=== PATIENT | male | born 1960 | race Caucasian/White ===

== ENCOUNTER → 2017-01-18 | Outpatient (CLI) | payer MEDICARE, OTHER ==
--- NOTE | 2017-01-18 22:26 | MR ---
EXAMINATION TYPE: MR cervical spine wo con DATE OF EXAM: 01/18/2017 COMPARISON: NONE HISTORY: 56-year-old male with neck pain and arm pain for 20 years, cervical radiculopathy TECHNIQUE: Multiplanar, multisequence images of the cervical spine were acquired. FINDINGS: No craniocervical junction abnormality, predental space widening, or prevertebral soft tissue swellin g. Degenerative changes at the C1 density dilatation. The intervertebral discs are degenerated, desiccated, and narrowed with the greatest narrowing at C5 C7 levels. Disc osteophyte complexes are present at multiple levels with ligamentum flavum thickening . Mild facet and uncovertebral joint arthropathy mid to lower cervical spine. Alignment is maintained. There is some edematous Modic type I endplate change at C5-C6. The axial series is limited by motion artifacts. At C2-C3, facet degenerative change without significant canal or foraminal stenosis. At C3-C4, there is broad-based disc bulge with facet arthropathy. Changes result in moderate right ne uroforaminal stenosis without spinal canal stenosis. At C4-C5, there is broad-based disc osteophyte complex without contiguous uncovertebral joint arthrop athy. Additional facet degenerative change. Changes result in moderate to severe right and moderate l eft neuroforaminal stenosis with mild narrowing of the spinal canal. At C5-C6, there is disc osteophyte complex with uncovertebral joint and facet degenerative change. Ch anges resulting in moderate to severe right and moderate left neuroforaminal stenosis with mild overa ll spinal canal stenosis. There is abutment of the ventral cord without cord flattening. At 6-C7, there is disc osteophyte complex with uncovertebral joint and facet arthropathy. Changes res ult in severe right greater than left neuroforaminal stenosis and mild spinal canal stenosis. There i s abutment of the ventral cord without cord flattening. At C7-T1, broad-based disc osteophyte complex with facet degenerative change. No significant canal or foraminal stenosis. Normal T2-weighted cervical cord signal. IMPRESSION: 1. Moderate multilevel degenerative disc disease with disc osteophyte complexes and corresponding fac et and uncovertebral joint arthropathy. There is some edematous Modic type I endplate change at C5-C6 . 2. Changes result in mild spinal canal stenoses from C4 down through C7 levels. There is abutment of the ventral cord at some levels without cord compression or argelia canal compromise. 3. Variable moderate to severe neuroforaminal stenoses as outlined above. Some of the neuroforaminal narrowing may be overestimated due to prominent motion artifacts on the axial series.
== END | disposition home or self-care (01) ==
LOC: RADMRIMAIN 18:11
PROVIDERS: ATTEND Family Medicine
DX: M48.02 Spinal stenosis, cervical region (principal); M99.71 Connective tissue and disc stenosis of intervertebral foramina of cervical region; M50.10 Cervical disc disorder with radiculopathy, unspecified cervical region
CPT/HCPCS: 72141

== ENCOUNTER 2023-02-07 11:21 | Inpatient (IN) | payer MEDICARE ==
--- NOTE | 2023-02-07 11:33 | ED ---
General Adult HPI - General Source: patient, family, RN notes reviewed Mode of arrival: ambulatory Limitations: no limitations <Patricio Grant - Last Filed: 02/07/23 11:31> <Jonny Cuenca - Last Filed: 02/07/23 14:14> - General Stated complaint: left [facility] system stated in middle heart attack Time Seen by Provider: 02/07/23 11:31 - History of Present Illness Initial comments: 62-year-old male presents emergency Department chief complaint of chest pain. Patient states he was admitted on Tuesday at [facility]. Patient states she was told he had a heart attack in which upon on blood work. Patient states that he signed himself out. Patient's having worsening chest pain. 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 Patient noted to have elevated blood pressure, patient has a history of smoking. (Patricio Grant) This is a 62-year-old male who presents emergency Department stating he's been having intermittent chest pains and shortness of breath over the month. Patient states on Tuesday got significantly worse. Patient states he went to [facility] where they told him his troponin was elevated and that he had a heart attack but on Tuesday morning patient signed out AMA. Patient states the pain is continued since then and he is still short of breath per patient decided to come back to the hospital because he thinks he needs to be treated. Patient is a smoker and has a strong family history of heart disease. Patient states that he doesn't know if he has high blood pressure high cholesterol she just started to see a doctor. (Jonny Cuenca) - Related Data Home Medications Medication Instructions Recorded Confirmed Enalapril [Vasotec] 20 mg PO BID 02/20/14 12/24/14 Previous Rx's Medication Instructions Recorded Sulfamethox-Tmp 800-160Mg [Bactrim 2 each PO Q12HR #28 tab 12/24/14 Ds] Allergies Allergy/AdvReac Type Severity Reaction Status Date / Time No Known Allergies Allergy Verified 02/07/23 11:48 Review of Systems ROS Other: All systems not noted in ROS Statement are negative. <Patircio Grant - Last Filed: 02/07/23 11:31> ROS Other: All systems not noted in ROS Statement are negative. <Jonny Cuenca - Last Filed: 02/07/23 14:14> ROS Statement: Those systems with pertinent positive or pertinent negative responses have been documented in the HPI. Past Medical History Past Medical History: Chest Pain / Angina, GERD/Reflux, Hypertension, Musculoskeletal Disorder Additional Past Medical History / Comment(s): HERNIATED DISCS, PTS STATES FOR THE LAST YEAR PT HAS BEEN VOMITING BLOOD, NOSEBLEEDS, BLOOD IN STOOL AND URINE AND SEVERE HEADACHES. STATES 40 # WT LOSS IN THE LAST YEAR. C/O ITCHING ON HANDS AND FEET. WAS TOLD IN THE PAST THAT HIS STOMACH LINING WAS "ROTTED" History of Any Multi-Drug Resistant Organisms: None Reported Past Surgical History: Orthopedic Surgery, Tonsillectomy Additional Past Surgical History / Comment(s): TONSILLS A CHILD, BILATERAL KNEE ARTHROSCOPY, PLATE LEFT FOOT. Past Anesthesia/Blood Transfusion Reactions: No Reported Reaction Past Psychological History: ADD/ADHD, Anxiety Past Alcohol Use History: None Reported Past Drug Use History: None Reported - Past Family History Mother Family Medical History: Cancer, Diabetes Mellitus Additional Family Medical History / Comment(s): PANCREATIC CA, HX OF HEART PROBLEMS- TRIPLE BYPASS SURGERY, STENTS Father Family Medical History: Cancer, Diabetes Mellitus Additional Family Medical History / Comment(s): LUNG CA, HX OF HEART PROBLEMS <Patricio Grant - Last Filed: 02/07/23 11:31> General Exam <Patricio Grant - Last Filed: 02/07/23 11:31> <Jonny Cuenca - Last Filed: 02/07/23 14:14> - General Exam Comments Initial Comments: Visual Physical Exam Vital signs reviewed General: Well-appearing, nontoxic, no acute distress. Head: Normocephalic, atraumatic Eyes: PERRLA, EOMI ENT: Airway patent Chest: Nonlabored breathing Skin: No visual rash, normal skin tone Neuro: Alert and oriented 3 Musculoskeletal: No gross abnormalities (Patricio Grant) GENERAL: Patient is well-developed and well-nourished. Patient is nontoxic and well- hydrated and is in mild distress. ENT: Neck is soft and supple. No significant lymphadenopathy is noted. Oropharynx is clear. Moist mucous membranes. Neck has full range of motion without eliciting any pain. EYES: The sclera were anicteric and conjunctiva were pink and moist. Extraocular movements were intact and pupils were equal round and reactive to light. Eyelids were unremarkable. PULMONARY: Unlabored respirations. Good breath sounds bilaterally. No audible rales rhonchi or wheezing was noted. CARDIOVASCULAR: There is a regular rate and rhythm without any murmurs gallops or rubs. ABDOMEN: Soft and nontender with normal bowel sounds. No palpable organomegaly was noted. There is no palpable pulsatile mass. SKIN: Skin is clear with no lesions or rashes and otherwise unremarkable. NEUROLOGIC: Patient is alert and oriented x3. Cranial nerves II through XII are grossly intact. Motor and sensory are also intact. Normal speech, volume and content. Symmetrical smile. MUSCULOSKELETAL: Normal extremities with adequate strength and full range of motion. LYMPHATICS: No significant lymphadenopathy is noted PSYCHIATRIC: Normal psychiatric evaluation. (Jonny Cuenca) Course Vital Signs 02/07/23 11:48 Temperature 98.8 F Pulse Rate 88 Respiratory 16 Rate Blood Pressure 191/102 O2 Sat by Pulse 98 Oximetry Medical Decision Making <Patricio Grant - Last Filed: 02/07/23 11:31> - Lab Data Result diagrams: 02/07/23 12:08 02/07/23 12:08 <Jonny Cuenca - Last Filed: 02/07/23 14:14> - Medical Decision Making I completed the quick note portion of this chart signed Patricio Grant PA-C (Patricio Grant) EKG is interpreted by myself shows a sinus rhythm at 74 bpm [place] interval 135 QRSs 88 QT interval 362 QTC is 389. Patient's EKG shows no ST segment elevation or depression. I'm indicating that this isn't an STEMI because that's what they call that at [facility] on Tuesday and he left AMA from [facility] and he still having chest pain his troponin is mildly elevated I started the patient on heparin I gave him aspirin and Nitropaste. Was pt. sent in by a medical professional or institution (MARTHA Luque, FOOD AND BEVERAGE OPERATIONS MANAGER, urgent care, hospital, or group home...) When possible be specific @ -Patient was sent in by the primary medical care doctor Did you speak to anyone other than the patient for history (EMS, parent, family, police, friend...)? What history was obtained from this source @ -His gave quite a bit of history Did you review nursing and triage notes (agree or disagree)? Why? @ -I reviewed and agree with nursing and triage notes Were old charts reviewed (outside hosp., previous admission, EMS record, old EKG, old radiological studies, urgent care reports/EKG's, group home records)? Report findings @ -I reviewed charts from [facility] Differential Diagnosis (chest pain, altered mental status, abdominal pain women, abdominal pain men, vaginal bleeding, weakness, fever, dyspnea, syncope, headache, dizziness, GI bleed, back pain, seizure, CVA, palpatations, mental health, musculoskeletal)? @ -Differential Chest Pain: Stable Angina, Unstable Angina, STEMI, NSTEMI Aortic Dissection, Pneumothorax, Musculoskeletal, Esophageal Spasm GERD, Cholecystitis, Pancreatitis, Zoster, this is not meant to be an all-inclusive list. EKG interpreted by me (3pts min.). @ -As above X-rays interpreted by me (1pt min.). @ -Chest x-ray shows no acute abnormality CT interpreted by me (1pt min.). @ -None done U/S interpreted by me (1pt. min.). @ -None done What testing was considered but not performed or refused? (CT, X-rays, U/S, labs)? Why? @ -None What meds were considered but not given or refused? Why? @ -None Did you discuss the management of the patient with other professionals (professionals i.e. , PA, FOOD AND BEVERAGE OPERATIONS MANAGER, lab, RT, psych nurse, social media specialist, railroad watchman, teacher, psychological operations officer, trust manager assistant)? Give summary @ -I spoke with Dr. Morrison he agreed to admit the patient Was smoking cessation discussed for >3mins.? @ -No Was critical care preformed (if so, how long)? @ -35 minutes Were there social determinants of health that impacted care today? How? (Homelessness, low income, unemployed, alcoholism, drug addiction, transportation, low edu. Level, literacy, decrease access to med. care, group home, rehab)? @ -No Was there de-escalation of care discussed even if they declined (Discuss DNR or withdrawal of care, Hospice)? DNR status @ -No What co-morbidities impacted this encounter? (DM, HTN, Smoking, COPD, CAD, Cancer, CVA, ARF, Chemo, Hep., AIDS, mental health diagnosis, sleep apnea, morbid obesity)? @ -None Was patient admitted / discharged? Hospital course, mention meds given and route, prescriptions, significant lab abnormalities, going to OR and other pertinent info. @ -I discussed lab results and the elevated troponin with the patient and Dr. Morrison. I admitted the patient remaining orders I started the patient heparin the patient received aspirin and Nitropaste in the emergency department. I continue those on the floor. I consulted cardiology and wrote admitting orders. Undiagnosed new problem with uncertain prognosis? @ -No Drug Therapy requiring intensive monitoring for toxicity (Heparin, Nitro, Insulin, Cardizem)? @ -No Were any procedures done? @ -No Diagnosis/symptom? @ -Non-STEMI Acute, or Chronic, or Acute on Chronic? @ -Acute Uncomplicated (without systemic symptoms) or Complicated (systemic symptoms)? @ -Complicated Side effects of treatment? @ -No Exacerbation, Progression, or Severe Exacerbation? @ -No Poses a threat to life or bodily function? How? (Chest pain, [place], AL, pneumonia, PE, COPD, DKA, ARF, appy, cholecystitis, CVA, Diverticulitis, Homicidal, Suicidal, threat to staff... and all critical care pts) @ -Yes this could lead to or perfusion and end organ dysfunction (Jonny Cuenca) - Lab Data Lab Results 02/07/23 02/07/23 02/07/23 Range/Units 12:08 12:08 12:08 WBC 8.6 (3.8-10.6) k/uL RBC 4.64 (4.30-5.90) m/uL Hgb 13.9 (13.0-17.5) gm/dL Hct 42.5 (39.0-53.0) % MCV 91.7 (80.0-100.0) fL MCH 29.9 (25.0-35.0) pg MCHC 32.7 (31.0-37.0) g/dL RDW 13.2 (11.5-15.5) % Plt Count 123 L (150-450) k/uL MPV 7.7 Neutrophils % 56 % Lymphocytes % 31 % Monocytes % 7 % Eosinophils % 3 % Basophils % 0 % Neutrophils # 4.9 (1.3-7.7) k/uL Lymphocytes # 2.7 (1.0-4.8) k/uL Monocytes # 0.6 (0-1.0) k/uL Eosinophils # 0.2 (0-0.7) k/uL Basophils # 0.0 (0-0.2) k/uL PT 10.2 (10.0-12.5) sec INR 0.9 (<1.2) APTT 23.1 (22.0-30.0) sec Sodium 138 (137-145) mmol/L Potassium 4.0 (3.5-5.1) mmol/L Chloride 103 (98-107) mmol/L Carbon Dioxide 27 (22-30) mmol/L Anion Gap 8 mmol/L BUN 17 (9-20) mg/dL Creatinine 0.89 (0.66-1.25) mg/dL Est GFR (CKD-EPI)AfAm >90 (>60 ml/min/1.73 sqM) Est GFR (CKD-EPI)NonAf >90 (>60 ml/min/1.73 sqM) Glucose 117 H (74-99) mg/dL Calcium 8.8 (8.4-10.2) mg/dL Magnesium 2.0 (1.6-2.3) mg/dL Total Bilirubin 0.4 (0.2-1.3) mg/dL AST 31 (17-59) U/L ALT 24 (4-49) U/L Alkaline Phosphatase 100 (38-126) U/L Troponin I (0.000-0.034) ng/mL NT-Pro-B Natriuret Pep 544 pg/mL Total Protein 6.1 L (6.3-8.2) g/dL Albumin 3.6 (3.5-5.0) g/dL 02/07/23 Range/Units 12:08 WBC (3.8-10.6) k/uL RBC (4.30-5.90) m/uL Hgb (13.0-17.5) gm/dL Hct (39.0-53.0) % MCV (80.0-100.0) fL MCH (25.0-35.0) pg MCHC (31.0-37.0) g/dL RDW (11.5-15.5) % Plt Count (150-450) k/uL MPV Neutrophils % % Lymphocytes % % Monocytes % % Eosinophils % % Basophils % % Neutrophils # (1.3-7.7) k/uL Lymphocytes # (1.0-4.8) k/uL Monocytes # (0-1.0) k/uL Eosinophils # (0-0.7) k/uL Basophils # (0-0.2) k/uL PT (10.0-12.5) sec INR (<1.2) APTT (22.0-30.0) sec Sodium (137-145) mmol/L Potassium (3.5-5.1) mmol/L Chloride (98-107) mmol/L Carbon Dioxide (22-30) mmol/L Anion Gap mmol/L BUN (9-20) mg/dL Creatinine (0.66-1.25) mg/dL Est GFR (CKD-EPI)AfAm (>60 ml/min/1.73 sqM) Est GFR (CKD-EPI)NonAf (>60 ml/min/1.73 sqM) Glucose (74-99) mg/dL Calcium (8.4-10.2) mg/dL Magnesium (1.6-2.3) mg/dL Total Bilirubin (0.2-1.3) mg/dL AST (17-59) U/L ALT (4-49) U/L Alkaline Phosphatase (38-126) U/L Troponin I 0.082 H* (0.000-0.034) ng/mL NT-Pro-B Natriuret Pep pg/mL Total Protein (6.3-8.2) g/dL Albumin (3.5-5.0) g/dL Critical Care Time Critical Care Time: Yes Total Critical Care Time: 35 <Jonny Cuenca - Last Filed: 02/07/23 14:14> Disposition <Patricio Grant - Last Filed: 02/07/23 11:31> Time of Disposition: 14:13 <Jonny Cuenca - Last Filed: 02/07/23 14:14> Clinical Impression: Acute non-ST elevation myocardial infarction (NSTEMI) Disposition: ADMITTED IP TO THIS HOSP Referrals: Rickey Morrison MD [Primary Care Provider] - 1-2 days
[2023-02-07 12:17] LABS: Basophils % (A) 0 %; Eosinophils # (A) 0.2 k/uL (0-0.7); Eosinophils % (A) 3 %; HCT 42.5 % (39.0-53.0); HGB 13.9 gm/dL (13.0-17.5); Lymphocytes # (A) 2.7 k/uL (1.0-4.8); Lymphocytes % (A) 31 %; MCH 29.9 pg (25.0-35.0); MCHC 32.7 g/dL (31.0-37.0); MCV 91.7 fL (80.0-100.0); Mean Platelet Volume 7.7; Monocytes # (A) 0.6 k/uL (0-1.0); Monocytes % (A) 7 %; Neutrophils # (A) 4.9 k/uL (1.3-7.7); Neutrophils % (A) 56 %; Platelet Count 123 k/uL (150-450); RBC 4.64 m/uL (4.30-5.90); RDW 13.2 % (11.5-15.5); WBC 8.6 k/uL (3.8-10.6)
[2023-02-07 12:30] LABS: INR 0.9 (<1.2); Partial Thromboplastin Time 23.1 sec (22.0-30.0); Prothrombin Time 10.2 sec (10.0-12.5)
[2023-02-07 12:37] LABS: NT-Pro-B-Type Natriuretic Pept 544 pg/mL
[2023-02-07 12:46] LABS: ALT 24 U/L (4-49); AST 31 U/L (17-59); African American GFR (CKD) >90 (>60 ml/min/1.73 sqM); Albumin 3.6 g/dL (3.5-5.0); Alkaline Phosphatase 100 U/L (38-126); Anion Gap 8 mmol/L; Blood Urea Nitrogen 17 mg/dL (9-20); Calcium 8.8 mg/dL (8.4-10.2); Carbon Dioxide 27 mmol/L (22-30); Chloride 103 mmol/L (98-107); Glucose 117 mg/dL (74-99); Non-African American GFR(CKD) >90 (>60 ml/min/1.73 sqM); Sodium 138 mmol/L (137-145); Total Bilirubin 0.4 mg/dL (0.2-1.3); Total Protein 6.1 g/dL (6.3-8.2)
--- NOTE | 2023-02-07 13:12 | XR ---
EXAMINATION TYPE: XR chest 2V DATE OF EXAM: 02/07/2023 12:51 PM CLINICAL INDICATION:Male, 62 years old with history of Chest Pain; COMPARISON: Chest radiographs from02/20/2014 TECHNIQUE: XR chest 2V Frontal and lateral views of the chest. FINDINGS: Lungs/Pleura: There is no evidence of pleural effusion, focal consolidation, or pneumothorax. Pulmonary vascularity: Unremarkable. Heart/mediastinum: Cardiomediastinal silhouette is unremarkable. Musculoskeletal: No acute osseous pathology. IMPRESSION: 1. No acute cardiopulmonary disease process. 2. COPD changes.
[2023-02-07] MEDS ORDERED: NICOTINE 21MG/24HR PATCH TRANSDERM STA (13:58)
[2023-02-07] MEDS ORDERED: ASPIRIN 81 MG PO STA (14:02)
[2023-02-07] MEDS ORDERED: NITROGLYCERIN OINT 1 INCH/GM PACKET TOPICAL STA (14:02)
[2023-02-07] MEDS ORDERED: HEPARIN SODIUM 1,000 UN/ML (10ML VL) IV ONE (14:03)
[2023-02-07] MEDS ORDERED: NITROGLYCERIN SL TABS 0.4 MG TAB SUBLINGUAL PRN (14:14)
[2023-02-07] MEDS ORDERED: HEPARIN SOD,PORK IN 0.45% NACL 25,000 UNIT in 0.45% NACL 1 250ML.BAG IV SCH (14:15)
[2023-02-07] MEDS ORDERED: LABETALOL 5 MG/ML VIAL MDV IVP STA (14:34)
[2023-02-07] MEDS ORDERED: HYDROmorphone 0.5 MG/0.5 ML SYRINGE IVP STA (16:02)
[2023-02-07] MEDS: NITROGLYCERIN OINT 1 INCH/GM PACKET TOPICAL SCH (20:34)
[2023-02-07] MEDS: KETOROLAC 15 MG/ML 1 ML VIAL IVP PRN (20:40)
[2023-02-07] MEDS: IPRATROPIUM-ALBUTEROL 3 ML NEB INHALATION SCH (21:01)
--- NOTE | 2023-02-07 21:23 | CT ---
EXAMINATION TYPE: CT chest wo con CT DLP: 327 mGycm, Automated exposure control for dose reduction was used. DATE OF EXAM: 02/07/2023 9:09 PM COMPARISON: 02/20/2014 CLINICAL INDICATION:Male, 62 years old with history of pain; PHH, chest pain TECHNIQUE: Multiple axial images were obtained through the chest. Sagittal and coronal reformats were created for review. Contrast used: mL of (None if empty) Oral contrast used: (None if empty) FINDINGS: LUNGS/ PLEURA: Paraseptal and centrilobular emphysema changes throughout the lungs. AIRWAY: Patent and unremarkable. HEART: Moderate to severe atherosclerosis of the coronary arteries. Aortic valve leaflet calcificatio ns are severe. MEDIASTINUM: No gross evidence of adenopathy. VASCULATURE: No aortic aneurysm. This course of the arterial vasculature. MUSCULOSKELETAL: Moderate disc degeneration changes are present throughout the thoracolumbar spine. SOFT TISSUES/LYMPH NODES: Unremarkable. LOWER NECK: No significant findings. UPPER ABDOMEN: No significant findings. IMPRESSION: 1. Moderate emphysema changes. 2. Severe aortic valve leaflet calcifications. 3. Moderate to severe coronary artery atherosclerosis.
--- NOTE | 2023-02-07 21:42 | US ---
EXAMINATION TYPE: US venous doppler duplex LE LT DATE OF EXAM: 02/07/2023 9:35 PM COMPARISON: NONE CLINICAL INDICATION: Male, 62 years old with history of left leg pain; Upper thigh pain x 2 weeks. No hx of DVT. Not on blood thinners SIDE PERFORMED: Left TECHNIQUE: The lower extremity deep venous system is examined utilizing real time linear array sonog faiza with graded compression, doppler sonography and color-flow sonography. VESSELS IMAGED: Common Femoral Vein Deep Femoral Vein Greater Saphenous Vein * Femoral Vein Popliteal Vein Small Saphenous Vein * Proximal Calf Veins (* superficial vessels) Left Leg: No evidence for DVT IMPRESSION: Grayscale, color doppler, spectral doppler imaging performed of the deep veins of the lo wer extremities. There is normal flow, compressibility, vascular waveforms.
[2023-02-07] MEDS ORDERED: CYCLOBENZAPRINE 10 MG TAB PO PRN (22:28)
[2023-02-07] MEDS: NICOTINE 14MG/24HR PATCH TRANSDERM SCH (22:34)
[2023-02-08] MEDS: IPRATROPIUM-ALBUTEROL 3 ML NEB INHALATION SCH ×3 (00:04→09:29)
[2023-02-08] MEDS: NITROGLYCERIN OINT 1 INCH/GM PACKET TOPICAL SCH ×2 (01:07→09:18)
[2023-02-08] MEDS: KETOROLAC 15 MG/ML 1 ML VIAL IVP PRN ×2 (04:25→10:21)
[2023-02-08 08:42] LABS: Chol/HDL Ratio 2.94 Ratio; LDL Cholesterol,Calculated 72.8 mg/dL (0.0-131.0)
[2023-02-08] MEDS ORDERED: ASPIRIN 325 MG TAB PO SCH (09:00)
[2023-02-08 10:03] VITALS: BP 166/81; PULSE 71; RESP 12; TEMP 97.4
[2023-02-08] MEDS: NICOTINE 14MG/24HR PATCH TRANSDERM SCH (10:31)
--- NOTE | 2023-02-08 11:39 | P.CRDCN ---
History of Present Illness Consult date: 02/08/23 History of present illness: HISTORY OF PRESENTING ILLNESS Patient is a 62-year-old male with past medical history of smoking who smokes 1 pack per day. He also has history of hypertension and COPD. Patient initially presented to [facility] over the weekend for substernal chest heaviness which has been going on for last 2-3 weeks. The symptoms are more pronounced lately because of significant emotional stress due to household dispute he is dealing with. He left [facility] AMA. This time he presented to the entire hospital because of substernal chest heaviness. His ECG shows sinus rhythm with concerns of LVH. He had mildly elevated d- dimer. This was followed up by CTA PE protocol which showed moderate coronary calcification, moderate aortic valve calcification, emphysematous chronic lung changes. It did not show any evidence of pulmonary embolism On admission his has a troponin with a flat pattern of 0.08. He has normal kidney function and normal hemoglobin levels. REVIEW OF SYSTEMS 14 point review of system is negative except what is mentioned above in HPI. PHYSICAL EXAMINATION Vital signs reviewed. Head: Normocephalic. Eyes: Sclerae nonicteric. Neck: Brisk carotid upstroke, no jugular venous distention. Lungs: Clear to auscultation. Heart: Regular rate and rhythm, S1-S2, no S3, no murmur or rub. Abdomen: Soft nontender, positive bowel sounds no organomegaly. Extremities: No edema, intact distal pulses. Neuro: Alert, oritented, no focal deficits ASSESSMENT Unstable angina with substernal chest heaviness Cardiac risk factors include hypertension, poor diet, dyslipidemia and smoking Moderate coronary artery calcification Chronic emphysema PLAN Plan for cardiac catheterization for tomorrow. I explained the risk factors and the procedure steps the patient. Patient would like to proceed but he is saying that he wants to leave AMA to take care of his household dispute with his . I have advised him strongly that he should not leave the hospital and get cardiac catheterization done as he is at increased risk of . Patient understands and still wants to leave [facility]. He has promised me that he would follow-up in next 1-2 days in the clinic on an outpatient heart catheterization. I do not agree with this plan and would like him to stay inpatient for inpatient heart catheterization. Start aspirin, atorvastatin, metoprolol Continue IV heparin drip Obtain echocardiogram Plan for cardiac catheterization Past Medical History Past Medical History: Chest Pain / Angina, GERD/Reflux, Hypertension, Musculoskeletal Disorder Additional Past Medical History / Comment(s): HERNIATED DISCS, NOSEBLEEDS, BLOOD IN STOOL AND URINE AND SEVERE HEADACHES, C/O ITCHING ON HANDS AND FEET. WAS TOLD IN THE PAST THAT HIS STOMACH LINING WAS "ROTTED" History of Any Multi-Drug Resistant Organisms: None Reported Past Surgical History: Orthopedic Surgery, Tonsillectomy Additional Past Surgical History / Comment(s): TONSILLS A CHILD, BILATERAL KNEE ARTHROSCOPY, PLATE LEFT FOOT Past Anesthesia/Blood Transfusion Reactions: No Reported Reaction Past Psychological History: ADD/ADHD, Anxiety Smoking Status: Current every day smoker Past Alcohol Use History: None Reported Past Drug Use History: None Reported - Past Family History Mother Family Medical History: Cancer, Diabetes Mellitus Additional Family Medical History / Comment(s): PANCREATIC CA, HX OF HEART PROBLEMS- TRIPLE BYPASS SURGERY, STENTS Father Family Medical History: Cancer, Diabetes Mellitus Additional Family Medical History / Comment(s): LUNG CA, HX OF HEART PROBLEMS Medications and Allergies Home Medications Medication Instructions Recorded Confirmed Type Aspirin EC [Ecotrin Low Dose] 81 mg PO DAILY #30 tab 02/08/23 Rx Atorvastatin [Lipitor] 80 mg PO DAILY #30 tab 02/08/23 Rx Metoprolol Succinate (ER) [Toprol 25 mg PO DAILY #30 tab 02/08/23 Rx XL] Allergies Allergy/AdvReac Type Severity Reaction Status Date / Time morphine Allergy Rash/Itchin Verified 02/07/23 14:40 g/Vomiting Physical Exam Vitals: Vital Signs Temp Pulse Pulse Resp BP BP Pulse Ox 02/08/23 09:49 97.4 F L 71 12 166/81 97 02/08/23 08:00 64 16 02/08/23 04:00 64 16 151/64 94 L 02/08/23 00:00 60 16 153/69 93 L 02/07/23 23:55 96 02/07/23 20:00 97.6 F 80 18 150/78 96 02/07/23 17:46 68 18 160/89 96 02/07/23 15:25 72 14 142/77 95 02/07/23 11:48 98.8 F 88 16 191/102 98 FiO2 02/08/23 09:49 02/08/23 08:00 02/08/23 04:00 02/08/23 00:00 02/07/23 23:55 21 02/07/23 20:00 02/07/23 17:46 02/07/23 15:25 02/07/23 11:48 Intake and Output 02/07/23 02/08/23 02/08/23 22:59 06:59 14:59 Intake Total 319.817 81.101 Balance 319.817 81.101 Intake: IV 10 Invasive Line 1 10 Intake, IV Titration 69.817 81.101 Amount Heparin Sod,Pork in 0.45% 69.817 81.101 NaCl 25,000 unit In 0.45 % NaCl 1 250ml.bag @ 12 UNITS/KG/HR 8.709 mls/hr IV .Q24H [facility] Rx#: [id number] Oral 240 Other: Voiding Method Toilet Toilet Toilet # Voids 1 Weight 72.575 kg Results 02/07/23 12:08 02/07/23 12:08 Cardiac Enzymes 02/07/23 02/07/23 02/07/23 Range/Units 12:08 12:08 14:37 AST 31 (17-59) U/L Troponin I 0.082 H* 0.092 H* (0.000-0.034) ng/mL 02/07/23 Range/Units 17:17 AST (17-59) U/L Troponin I 0.086 H* (0.000-0.034) ng/mL Coagulation 02/07/23 02/07/23 02/08/23 Range/Units 12:08 19:45 04:16 PT 10.2 (10.0-12.5) sec APTT 23.1 30.0 34.8 H (22.0-30.0) sec Lipids 02/08/23 Range/Units 04:16 Triglycerides 210.00 H (0.00-149.00) mg/dL Cholesterol 174.00 (0.00-200.00) mg/dL HDL Cholesterol 59.20 (40.00-60.00) mg/dL Cholesterol/HDL Ratio 2.94 Ratio CBC 02/07/23 Range/Units 12:08 WBC 8.6 (3.8-10.6) k/uL RBC 4.64 (4.30-5.90) m/uL Hgb 13.9 (13.0-17.5) gm/dL Hct 42.5 (39.0-53.0) % Plt Count 123 L (150-450) k/uL Comprehensive Metabolic Panel 02/07/23 Range/Units 12:08 Sodium 138 (137-145) mmol/L Potassium 4.0 (3.5-5.1) mmol/L Chloride 103 (98-107) mmol/L Carbon Dioxide 27 (22-30) mmol/L BUN 17 (9-20) mg/dL Creatinine 0.89 (0.66-1.25) mg/dL Glucose 117 H (74-99) mg/dL Calcium 8.8 (8.4-10.2) mg/dL AST 31 (17-59) U/L ALT 24 (4-49) U/L Alkaline Phosphatase 100 (38-126) U/L Total Protein 6.1 L (6.3-8.2) g/dL Albumin 3.6 (3.5-5.0) g/dL Current Medications Generic Name Dose Route Start Last Admin Trade Name Freq PRN Reason Stop Dose Admin Albuterol/Ipratropium 3 ml 02/07/23 20:00 02/08/23 09:29 Ipratropium-Albuterol 3 Ml Neb INHALATION Not Given RT-Q4H ABEL Aspirin 325 mg 02/08/23 09:00 02/08/23 09:16 Aspirin 325 Mg Tab PO 325 mg DAILY ABEL Administration Cyclobenzaprine HCl 10 mg 02/07/23 22:28 02/07/23 22:34 Cyclobenzaprine 10 Mg Tab PO 10 mg BID PRN Administration Muscle Spasm Heparin Sodium/Sodium Chloride 250 mls @ 8.709 mls/hr 02/07/23 14:15 02/08/23 05:54 25,000 unit/ Sodium Chloride IV 18 units/kg/hr .Q24H ABEL 13.064 mls/hr Titration Protocol 12 UNITS/KG/HR Ketorolac Tromethamine 15 mg 02/07/23 20:33 02/08/23 10:21 Ketorolac 15 Mg/Ml 1 Ml Vial IVP 02/12/23 20:33 15 mg Q6HR PRN Administration Pain Nicotine 1 patch 02/07/23 22:30 02/08/23 10:31 Nicotine 14mg/24hr Patch TRANSDERM 1 patch DAILY ABEL Administration Nitroglycerin 0.4 mg 02/07/23 14:14 Nitroglycerin Sl Tabs 0.4 Mg Tab SUBLINGUAL Q5M PRN Chest Pain Nitroglycerin 1 inch 02/07/23 18:00 02/08/23 09:18 Nitroglycerin Oint 1 Inch/Gm Packet TOPICAL 1 inch Q6HR ABEL Administration Intake and Output 02/07/23 02/08/23 02/08/23 22:59 06:59 14:59 Intake Total 319.817 81.101 Balance 319.817 81.101 Intake: IV 10 Invasive Line 1 10 Intake, IV Titration 69.817 81.101 Amount Heparin Sod,Pork in 0.45% 69.817 81.101 NaCl 25,000 unit In 0.45 % NaCl 1 250ml.bag @ 12 UNITS/KG/HR 8.709 mls/hr IV .Q24H [facility] Rx#: [id number] Oral 240 Other: Voiding Method Toilet Toilet Toilet # Voids 1 Weight 72.575 kg 02/07/23 12:08 02/07/23 12:08
--- NOTE | 2023-02-08 12:16 | CA ---
Transthoracic Echo Report Name: Patricio Morris Age: 62 Gender: M : 1960 Exam Date: 02/08/2023 08:23 Exam Location: [facility] Ht (in): 72 Wt (lb): 160 Ordering Physician: Rickey Morrison MD Attending/Referring Phys: [employer] Teacher Soo Powell [facility] Procedure CPT: Indications: CAD Cardiac Hx: Technical Quality: Fair Contrast 1: Total Dose (mL): Contrast 2: Total Dose (mL): MEASUREMENTS (Male / Female) Normal Values 2D ECHO LV Diastolic Diameter PLAX 4.9 cm 4.2 - 5.9 / 3.9 - 5.3 cm LV Systolic Diameter PLAX 3.6 cm IVS Diastolic Thickness 1.2 cm 0.6 - 1.0 / 0.6 - 0.9 cm LVPW Diastolic Thickness 1.3 cm 0.6 - 1.0 / 0.6 - 0.9 cm LV Relative Wall Thickness 0.5 LVOT Diameter 2.0 cm Ascending Aorta Diameter 3.1 cm M-MODE Aortic Root Diameter MM 3.0 cm LA Systolic Diameter MM 3.9 cm LA Ao Ratio MM 1.3 AV Cusp Separation MM 1.5 cm DOPPLER AV Peak Velocity 378.4 cm/s AV Peak Gradient 58.6 mmHg AV Mean Velocity 296.3 cm/s AV Mean Gradient 38.1 mmHg AV Velocity Time Integral 90.2 cm AI Peak Velocity 546.1 cm/s AI Peak Gradient 119.3 mmHg AI Pressure Half Time 718.2 ms LVOT Peak Velocity 108.5 cm/s LVOT Peak Gradient 4.7 mmHg LVOT Velocity Time Integral 25.9 cm LVOT Stroke Volume 81.4 cm??? LVOT Stroke Volume Index 42.0 ml/m??? LVOT Cardiac Index 2762.1 cm???/min???m??? AV Area Cont Eq vti 0.9 cm??? AV Area Cont Eq pk 0.9 cm??? Mitral E Point Velocity 63.4 cm/s Mitral A Point Velocity 108.1 cm/s Mitral E to A Ratio 0.6 MV Deceleration Time 304.9 ms LV E' Lateral Velocity 4.9 cm/s Mitral E to LV E' Lateral Ratio 12.9 LV E' Septal Velocity 5.3 cm/s Mitral E to LV E' Septal Ratio 12.1 TR Peak Velocity 250.1 cm/s TR Peak Gradient 25.0 mmHg Right Atrial Pressure 15.0 mmHg Pulmonary Artery Systolic Pressu 40.0 mmHg Right Ventricular Systolic Press 40.0 mmHg FINDINGS Left Ventricle Mildly increased left ventricular wall thickness. Left ventricular cavity size normal. Low normal left ventricular systolic function with no obvious regional wall motion abnormalities. Left ventricular ejection fraction is estimated at 50-55%. Right Ventricle Moderate right ventricular dilatation. Moderate pulmonary hypertension. Right Atrium Moderate right atrial dilatation. Left Atrium Mild left atrial dilatation. Mitral Valve Mitral annular calcification. Mild mitral regurgitation. Aortic Valve Aortic valve not well visualized. Diffuse thickening of the aortic valve cusps with reduced excursion. Mild aortic regurgitation. [id number] aortic stenosis with a peak gradient of 58.6 mmHg and a mean gradient of 38.1 mmHg. Tricuspid Valve Structurally normal tricuspid valve. Trace to mild tricuspid regurgitation. Pulmonic Valve Pulmonic valve not well visualized. Pericardium No pericardial effusion. Aorta Normal size aortic root and proximal ascending aorta. CONCLUSIONS Normal LV systolic function Mild aortic regurgitation Moderate to severe aortic stenosis with a peak gradient of 58 mm and the mean gradient of 38 mm Moderate pulmonary hypertension Previewed by: Dr. Alan Canas MD (Electronically Signed) Final Date: 08 February 2023 12:15
== END 2023-02-08 11:43 | disposition left against medical advice (07) | DRG 282 ==
LOC: EC 11:21 → 3SCARD 14:20
PROVIDERS: ADMIT Family Medicine; ATTEND Family Medicine
DX: I21.4 Non-ST elevation (NSTEMI) myocardial infarction (principal); I25.110 Atherosclerotic heart disease of native coronary artery with unstable angina pectoris; K21.9 Gastro-esophageal reflux disease without esophagitis; I10 Essential (primary) hypertension; J44.9 Chronic obstructive pulmonary disease, unspecified; J43.9 Emphysema, unspecified; F90.9 Attention-deficit hyperactivity disorder, unspecified type; F41.9 Anxiety disorder, unspecified; I35.8 Other nonrheumatic aortic valve disorders; F17.210 Nicotine dependence, cigarettes, uncomplicated; E78.5 Hyperlipidemia, unspecified; Z79.899 Other long term (current) drug therapy; Z79.82 Long term (current) use of aspirin; Z28.310 Unvaccinated for COVID-19; Z88.5 Allergy status to narcotic agent; Z63.8 Other specified problems related to primary support group
CPT/HCPCS: 36415; 71046; 71250; 80053; 80061; 83735; 83880; 84484; 85025; 85379; 85610; 85730; 93005; 93306; 94760; 96365; 96366; 96375; 99291

== ENCOUNTER 2023-02-09 12:35 | Inpatient (IN) | payer MEDICARE ==
[2023-02-09] MEDS ORDERED: ASPIRIN 81 MG PO STA (12:56)
[2023-02-09] MEDS ORDERED: NITROGLYCERIN SL TABS 0.4 MG TAB SUBLINGUAL PRN (12:56)
--- NOTE | 2023-02-09 12:56 | ED ---
Chest Pain HPI - General Chief Complaint: Chest Pain Stated Complaint: chest pain Time Seen by Provider: 02/09/23 12:44 Source: patient, RN notes reviewed Mode of arrival: ambulatory Limitations: no limitations - History of Present Illness Initial Comments: 8-year-old male presents emergency Department chief complaint chest pain. Patient was admitted and signed out AGAINST MEDICAL ADVICE secondary to problems at home. Patient states he still having chest pain county director welfare wanted to perform heart cath at that time but he left against advice. He continues to have chest pain, shortness breath is a daily smoker. Patient has had elevated cardiac enzymes. - Related Data Previous Rx's Medication Instructions Recorded Aspirin EC [Ecotrin Low Dose] 81 mg PO DAILY #30 tab 02/08/23 Atorvastatin [Lipitor] 80 mg PO DAILY #30 tab 02/08/23 Metoprolol Succinate (ER) [Toprol 25 mg PO DAILY #30 tab 02/08/23 XL] Allergies Allergy/AdvReac Type Severity Reaction Status Date / Time morphine Allergy Rash/Itchin Verified 02/07/23 14:40 g/Vomiting Review of Systems ROS Statement: Those systems with pertinent positive or pertinent negative responses have been documented in the HPI. ROS Other: All systems not noted in ROS Statement are negative. Past Medical History Past Medical History: Coronary Artery Disease (CAD), Chest Pain / Angina, GERD/Reflux, Hypertension, Musculoskeletal Disorder Additional Past Medical History / Comment(s): HERNIATED DISCS, NOSEBLEEDS, BLOOD IN STOOL AND URINE AND SEVERE HEADACHES, C/O ITCHING ON HANDS AND FEET. WAS TOLD IN THE PAST THAT HIS STOMACH LINING WAS "ROTTED" History of Any Multi-Drug Resistant Organisms: None Reported Past Surgical History: Orthopedic Surgery, Tonsillectomy Additional Past Surgical History / Comment(s): TONSILLS A CHILD, BILATERAL KNEE ARTHROSCOPY, PLATE LEFT FOOT Past Anesthesia/Blood Transfusion Reactions: No Reported Reaction Past Psychological History: ADD/ADHD, Anxiety Smoking Status: Current every day smoker Past Alcohol Use History: None Reported Past Drug Use History: None Reported - Past Family History Mother Family Medical History: Cancer, Diabetes Mellitus Additional Family Medical History / Comment(s): PANCREATIC CA, HX OF HEART PROBLEMS- TRIPLE BYPASS SURGERY, STENTS Father Family Medical History: Cancer, Diabetes Mellitus Additional Family Medical History / Comment(s): LUNG CA, HX OF HEART PROBLEMS General Exam Limitations: no limitations General appearance: alert, in no apparent distress Head exam: Present: atraumatic, normocephalic, normal inspection Eye exam: Present: normal appearance, PERRL, EOMI. Absent: scleral icterus, conjunctival injection, periorbital swelling ENT exam: Present: normal exam, normal oropharynx, mucous membranes moist Neck exam: Present: normal inspection, full ROM. Absent: tenderness, meningism us, lymphadenopathy Respiratory exam: Present: normal lung sounds bilaterally. Absent: respiratory distress, wheezes, rales, rhonchi, stridor Cardiovascular Exam: Present: regular rate, normal rhythm, normal heart sounds. Absent: systolic murmur, diastolic murmur, rubs, gallop, clicks Course Vital Signs 02/09/23 12:41 Temperature 98.3 F Pulse Rate 77 Respiratory 16 Rate Blood Pressure 141/80 O2 Sat by Pulse 96 Oximetry Chest Pain MDM - MDM Was pt. sent in by a medical professional or institution (, PA, PRESIDENT AND CEO, urgent care, hospital, or usp...) When possible be specific @ -No Did you speak to anyone other than the patient for history (EMS, parent, family, police, friend...)? What history was obtained from this source @ -No Did you review nursing and triage notes (agree or disagree)? Why? @ -I reviewed and agree with nursing and triage notes Were old charts reviewed (outside hosp., previous admission, EMS record, old EKG, old radiological studies, urgent care reports/EKG's, usp records)? Report findings @ -Reviewed recent admission, laboratory studies, cardiology evaluation Differential Diagnosis (chest pain, altered mental status, abdominal pain women, abdominal pain men, vaginal bleeding, weakness, fever, dyspnea, syncope, headach e, dizziness, GI bleed, back pain, seizure, CVA, palpatations, mental health, musculoskeletal)? @ -Differential Chest Pain: Stable Angina, Unstable Angina, STEMI, NSTEMI Aortic Dissection, Pneumothorax, Musculoskeletal, Esophageal Spasm GERD, Cholecystitis, Pancreatitis, Zoster, this is not meant to be an all-inclusive list. e EKG interpreted by me (3pts min.). @ -As above X-rays interpreted by me (1pt min.). @ -None done CT interpreted by me (1pt min.). @ -None done U/S interpreted by me (1pt. min.). @ -None done What testing was considered but not performed or refused? (CT, X-rays, U/S, labs)? Why? @ -None What meds were considered but not given or refused? Why? @ -None Did you discuss the management of the patient with other professionals (professionals i.e. , PA, PRESIDENT AND CEO, lab, RT, psych nurse, secondary social studies teacher, supervisor data processing, teacher, adult probation officer, caser shoe parts)? Give summary @ -I did discuss case with cardiology, PCP. Patient will be readmitted. Was smoking cessation discussed for >3mins.? @ -No Was critical care preformed (if so, how long)? @ -No Were there social determinants of health that impacted care today? How? (Homelessness, low income, unemployed, alcoholism, drug addiction, transportation, low edu. Level, literacy, decrease access to med. care, shelter, rehab)? @ -No Was there de-escalation of care discussed even if they declined (Discuss DNR or withdrawal of care, Hospice)? DNR status @ -No What co-morbidities impacted this encounter? (DM, HTN, Smoking, COPD, CAD, Cancer, CVA, ARF, Chemo, Hep., AIDS, mental health diagnosis, sleep apnea, morbid obesity)? @ -None Was patient admitted / discharged? Hospital course, mention meds given and route, prescriptions, significant lab abnormalities, going to OR and other pertinent info. @ -Admitted patient has limited for cardiology evaluation secondary to recent NSTEMI Patient has continued with chest pain. Undiagnosed new problem with uncertain prognosis? @ -No Drug Therapy requiring intensive monitoring for toxicity (Heparin, Nitro, Insulin, Cardizem)? @ -No Were any procedures done? @ -No Diagnosis/symptom? @ -Chest pain Acute, or Chronic, or Acute on Chronic? @ -Acute Uncomplicated (without systemic symptoms) or Complicated (systemic symptoms)? @ - complicated Side effects of treatment? @ -No Exacerbation, Progression, or Severe Exacerbation? @ -No Poses a threat to life or bodily function? How? (Chest pain, USA, VT, pneumonia, PE, COPD, DKA, ARF, appy, cholecystitis, CVA, Diverticulitis, Homicidal, Suicidal, threat to staff... and all critical care pts) @ -yes chest possible ACS Disposition Clinical Impression: Acute non-ST elevation myocardial infarction (NSTEMI), Chest pain Disposition: ADMITTED IP TO THIS HOSP Referrals: Rickey Morrison MD [Primary Care Provider] - 1-2 days Time of Disposition: 12:56
[2023-02-09 13:05] LABS: Basophils % (A) 0 %; Eosinophils # (A) 0.3 k/uL (0-0.7); Eosinophils % (A) 3 %; HCT 48.2 % (39.0-53.0); HGB 15.5 gm/dL (13.0-17.5); Lymphocytes # (A) 1.8 k/uL (1.0-4.8); Lymphocytes % (A) 17 %; MCH 29.2 pg (25.0-35.0); MCHC 32.1 g/dL (31.0-37.0); Mean Platelet Volume 7.4; Monocytes # (A) 0.5 k/uL (0-1.0); Monocytes % (A) 5 %; Neutrophils # (A) 7.4 k/uL (1.3-7.7); Neutrophils % (A) 73 %; Platelet Count 156 k/uL (150-450); RBC 5.29 m/uL (4.30-5.90); WBC 10.2 k/uL (3.8-10.6)
[2023-02-09 13:19] LABS: ALT 32 U/L (4-49); AST 35 U/L (17-59); African American GFR (CKD) >90 (>60 ml/min/1.73 sqM); Albumin 4.3 g/dL (3.5-5.0); Alkaline Phosphatase 101 U/L (38-126); Anion Gap 10 mmol/L; Blood Urea Nitrogen 18 mg/dL (9-20); Calcium 9.9 mg/dL (8.4-10.2); Carbon Dioxide 28 mmol/L (22-30); Chloride 98 mmol/L (98-107); Glucose 93 mg/dL (74-99); Magnesium 1.9 mg/dL (1.6-2.3); Non-African American GFR(CKD) >90 (>60 ml/min/1.73 sqM); Potassium 4.6 mmol/L (3.5-5.1); Sodium 136 mmol/L (137-145); Total Bilirubin 0.6 mg/dL (0.2-1.3); Total Protein 7.2 g/dL (6.3-8.2)
[2023-02-09 13:30] LABS: INR 0.9 (<1.2); Partial Thromboplastin Time 25.4 sec (22.0-30.0)
[2023-02-09] MEDS ORDERED: ATORVASTATIN 20 MG TAB PO STA (13:46)
[2023-02-09] MEDS: SODIUM CHLORIDE 0.9% 1,000 ML IV SCH (13:55)
--- NOTE | 2023-02-09 14:31 | P.CRDCN ---
History of Present Illness Consult date: 02/09/23 History of present illness: HISTORY OF PRESENTING ILLNESS Patient is a 62-year-old male with past medical history of smoking who smokes 1 pack per day. He also has history of hypertension and COPD. Patient initially presented to [facility] over the weekend for substernal chest heaviness which has been going on for last 2-3 weeks. The symptoms are more pronounced lately because of significant emotional stress due to household dispute he is dealing with. He left [facility] AM. On 02/07/23 time he presented to the [facility] because of substernal chest heaviness. His ECG shows sinus rhythm with concerns of LVH. He had mildly elevated d- dimer. This was followed up by CTA PE protocol which showed moderate coronary calcification, moderate aortic valve calcification, emphysematous chronic lung changes. It did not show any evidence of pulmonary embolism On admission his has a troponin with a flat pattern of 0.08. He has normal kidney function and normal hemoglobin levels. He again left AGAINST MEDICAL ADVICE on 02/08/2023. He said that he had significant household dispute going on at home for which he needs to leave the hospital. He was advised that he should not leave the hospital and it at high risk of . He was advised to followup outpatient. Today he presented to the hospital again. He does report having symptoms of substernal chest heaviness on and off mostly with exertion. He denies any lightheadedness or dizziness. He denies any palpitations. REVIEW OF SYSTEMS 14 point review of system is negative except what is mentioned above in HPI. PHYSICAL EXAMINATION Vital signs reviewed. Head: Normocephalic. Eyes: Sclerae nonicteric. Neck: Brisk carotid upstroke, no jugular venous distention. Lungs: Clear to auscultation. Heart: Regular rate and rhythm, S1-S2, no S3, no murmur or rub. Abdomen: Soft nontender, positive bowel sounds no organomegaly. Extremities: No edema, intact distal pulses. Neuro: Alert, oritented, no focal deficits ASSESSMENT Unstable angina with substernal chest heaviness Cardiac risk factors include hypertension, poor diet, dyslipidemia and smoking Moderate coronary artery calcification Chronic emphysema PLAN Plan for cardiac catheterization. Risks and benefit of this procedure was discussed with the patient. We explained the procedure steps. Patient agrees to proceed with a cath Continue aspirin, atorvastatin, metoprolol Obtain echocardiogram further recommendations to follow cath results Past Medical History Past Medical History: Coronary Artery Disease (CAD), Chest Pain / Angina, G ERD/Reflux, Hypertension, Musculoskeletal Disorder Additional Past Medical History / Comment(s): HERNIATED DISCS, NOSEBLEEDS, BLOOD IN STOOL AND URINE AND SEVERE HEADACHES, C/O ITCHING ON HANDS AND FEET. WAS TOLD IN THE PAST THAT HIS STOMACH LINING WAS "ROTTED" History of Any Multi-Drug Resistant Organisms: None Reported Past Surgical History: Orthopedic Surgery, Tonsillectomy Additional Past Surgical History / Comment(s): TONSILLS A CHILD, BILATERAL KNEE ARTHROSCOPY, PLATE LEFT FOOT Past Anesthesia/Blood Transfusion Reactions: No Reported Reaction Past Psychological History: ADD/ADHD, Anxiety Smoking Status: Current every day smoker Past Alcohol Use History: None Reported Past Drug Use History: None Reported - Past Family History Mother Family Medical History: Cancer, Diabetes Mellitus Additional Family Medical History / Comment(s): PANCREATIC CA, HX OF HEART PROBLEMS- TRIPLE BYPASS SURGERY, STENTS Father Family Medical History: Cancer, Diabetes Mellitus Additional Family Medical History / Comment(s): LUNG CA, HX OF HEART PROBLEMS Medications and Allergies Home Medications Medication Instructions Recorded Confirmed Type Aspirin EC [Ecotrin Low Dose] 81 mg PO DAILY #30 tab 02/08/23 02/09/23 Rx Atorvastatin [Lipitor] 80 mg PO DAILY #30 tab 02/08/23 02/09/23 Rx Metoprolol Succinate (ER) [Toprol 25 mg PO DAILY #30 tab 02/08/23 02/09/23 Rx XL] Allergies Allergy/AdvReac Type Severity Reaction Status Date / Time morphine Allergy Rash/Itchin Verified 02/07/23 14:40 g/Vomiting Physical Exam Vitals: Vital Signs Temp Pulse Pulse Resp BP Pulse Ox 02/09/23 14:03 71 18 134/78 94 L 02/09/23 13:40 98.7 F 73 19 119/72 94 L 02/09/23 13:38 72 02/09/23 12:41 98.3 F 77 16 141/80 96 Intake and Output 02/08/23 02/09/23 02/09/23 22:59 06:59 14:59 Other: Weight 77.111 kg Results 02/09/23 12:54 02/09/23 12:54 Cardiac Enzymes 02/09/23 02/09/23 Range/Units 12:54 12:54 AST 35 (17-59) U/L Troponin I 0.034 (0.000-0.034) ng/mL Coagulation 02/09/23 Range/Units 12:54 PT 10.0 (10.0-12.5) sec APTT 25.4 (22.0-30.0) sec CBC 02/09/23 Range/Units 12:54 WBC 10.2 (3.8-10.6) k/uL RBC 5.29 (4.30-5.90) m/uL Hgb 15.5 (13.0-17.5) gm/dL Hct 48.2 (39.0-53.0) % Plt Count 156 (150-450) k/uL Comprehensive Metabolic Panel 02/09/23 Range/Units 12:54 Sodium 136 L (137-145) mmol/L Potassium 4.6 (3.5-5.1) mmol/L Chloride 98 (98-107) mmol/L Carbon Dioxide 28 (22-30) mmol/L BUN 18 (9-20) mg/dL Creatinine 0.91 (0.66-1.25) mg/dL Glucose 93 (74-99) mg/dL Calcium 9.9 (8.4-10.2) mg/dL AST 35 (17-59) U/L ALT 32 (4-49) U/L Alkaline Phosphatase 101 (38-126) U/L Total Protein 7.2 (6.3-8.2) g/dL Albumin 4.3 (3.5-5.0) g/dL Current Medications Generic Name Dose Route Start Last Admin Trade Name Freq PRN Reason Stop Dose Admin Aspirin 325 mg 02/10/23 09:00 Aspirin 325 Mg Tab PO DAILY ABEL Sodium Chloride 1,000 mls @ 75 mls/hr 02/09/23 13:45 02/09/23 13:55 Saline 0.9% IV 75 mls/hr .[id number] ABEL Administration Nitroglycerin 0.4 mg 02/09/23 12:56 Nitroglycerin Sl Tabs 0.4 Mg Tab SUBLINGUAL Q5M PRN Chest Pain Intake and Output 02/08/23 02/09/23 02/09/23 22:59 06:59 14:59 Other: Weight 77.111 kg Patient Weight 02/10/23 06:59 Weight 77.111 kg 02/09/23 12:54 02/09/23 12:54
[2023-02-09] MEDS ORDERED: fentaNYL (PF) 50 MCG/ML 2 ML AMP IVP ONE (14:48)
[2023-02-09] MEDS ORDERED: fentaNYL (PF) 50 MCG/ML 2 ML AMP ONE (14:48)
[2023-02-09] MEDS ORDERED: MIDAZOLAM 2 MG/2 ML VIAL IVP ONE (14:48)
[2023-02-09] MEDS ORDERED: LIDOCAINE 1% INJ 10MG/ML (30 ML VIAL-PF) SQ ONE (14:49)
[2023-02-09] MEDS ORDERED: VERAPAMIL SYRINGE (5 MG/10 ML) INTRAARTER ONE (14:53)
[2023-02-09] MEDS ORDERED: HEPARIN SODIUM 1,000 UN/ML (10ML VL) IVP ONE ×2 (14:54)
[2023-02-09] MEDS ORDERED: HEPARIN SODIUM 1,000 UN/ML (10ML VL) ONE (14:54)
[2023-02-09] MEDS ORDERED: IOPAMIDOL-370 100ML BTL INJ ONE (15:06)
[2023-02-09] MEDS ORDERED: IV FLUID CONTINUATION 950 ML IV ONE (15:10)
[2023-02-09] MEDS: IPRATROPIUM-ALBUTEROL 3 ML NEB INHALATION SCH (17:59)
--- NOTE | 2023-02-09 18:25 | P.CARDCATH ---
Date of Procedure: 02/09/23 Description of Procedure: DIAGNOSTIC CORONARY ANGIOGRAPHY and LEFT HEART CATH REPORT PROCEDURES PERFORMED: Left heart catheterization was attempted but could not complete Selective coronary angiography Moderate conscious sedation 32 mins Ultrasound assisted Right radial access INDICATION: NSTEMI 62-year-old male initially presented to [facility] with substernal chest pressure and it elevation of troponins. He left AGAINST MEDICAL ADVICE. Then he presented to [facility] with similar complaints. He was advised to sit in the hospital and undergo a cardiac catheterization but patient elected to leave AGAINST MEDICAL ADVICE.. Now he presented to the hospital with similar complaints. Due to this he was planned for an urgent heart catheterization procedure. CONSENT: I have discussed the risks, benefits and alternative therapies for the above-mentioned procedure, sedation/analgesia and necessary blood product administration (if indicated, as they pertain to this patient). The patient has indicated understanding and acceptance of the risks and procedures discussed. Conscious Sedation: Patient's ECG, heart rate, blood pressure, pulse oximetry was monitored throughout the duration of procedure under my direct supervision. 2 mg Versed and 50 mg Fentanyl were used for induction of moderate conscious sedation. Total duration of moderate concious sedation 32 minutes. PROCEDURE: After explaining the risks, benefits and alternatives of the above mentioned procedures in detail to the patient, informed consent was obtained. Patient was taken to the catheterization lab, prepped and draped in usual sterile fashion using universal precuations. Barbow and belrin test were performed to confirm adequate perfusion to fingers. Ultrasound was used to identify the radial artery. 1% lidocaine was infiltrated over the right radial artery. A 6-Lebanese sheath was placed and secured in the right radial artery using modified Seldinger technique. The sheath was flushed and 5 mg verapamil was administered intra-arterially. J tipped wire was advanced under fluoroscopic guidance. Once the wire tip reached aortic root 4500 units of IV heparin was given. Over the wire JL4 diagnostic catheter was advanced. Wire was removed, catheter was flushed and manipulated under fluoroscopy to selectively engaged the left coronary ostium. Left coronary angioplasty was performed in different angiographic projections. This catheter was exchanged for a JR4 diagnostic catheter over the wire. Pullback was performed across aortic valve and catheter was manipulated to selectively engage the right coronary ostium under fluoroscopic guidance. Right coronary angiography was performed in different angiographic projections. Catheter was removed over the wire. Radial sheath was flushed. Aortic valve is heavy calcified and could not be passed via J wire a straight wire using the support of JR4 and AL1 catheters. At this point of time left heart catheterization could not be performed because of an elevated across aortic valve. The right radial sheath was removed and a TR band was placed with excellent patent hemostasis was achieved. The patient tolerated the procedure well. Patient was transported back to the post catheterization holding area in stable condition. Angiographic images were reviewed in detail. HEMODYNAMICS: Left heart cath was attempted but could not be performed SELECTIVE CORONARY ARTERIOGRAPHY: LEFT MAIN: The left main is a large caliber vessel which bifurcates into the LAD and circumflex. Distal left main has 60-70% calcific stenosis. LEFT ANTERIOR DESCENDING CORONARY ARTERY: LAD is a large caliber vessel which wraps around to the apex. Ostial LAD has 50% disease. Proximal and mid LAD has 30-40% luminal irregularities. It gives rise to 2 medium-sized diagonal branches which appears angiographically normal. LEFT CIRCUMFLEX CORONARY ARTERY: It is nondominant vessel. Ostial LCx has 80% stenosis. Mid LCx has 70% stenosis. It gives restless more OM branches. RIGHT CORONARY ARTERY: Dominant vessel. Mid RCA has 50% diffuse disease. Distal RCA gives rise to PDA and PL branches which has mild luminal irregularities. IMPRESSION: 60% distal left main disease 50% ostial LAD disease 80% ostial Lcx disease Severe aortic stenosis PLAN: Continue aspirin, atorvastatin, metoprolol Consult CT surgery for CABG and aortic valve replacement evaluation Obtain an echocardiogram Performing Physician Navi Cruz MD
[2023-02-09] MEDS ORDERED: RX INFO: IV CONTRAST WAS GIVEN 1 EACH MISC MISCELLANE PRN (18:26)
[2023-02-09] MEDS ORDERED: SODIUM CHLORIDE 0.9% 1,000 ML IV SCH (18:30)
[2023-02-09] MEDS: METOPROLOL SUCCINATE (ER) 25 MG TAB.ER.24H PO SCH (18:37)
[2023-02-09] MEDS: NICOTINE 21MG/24HR PATCH TRANSDERM SCH (18:37)
[2023-02-09 20:17] VITALS: TEMP 97.9
--- NOTE | 2023-02-09 23:34 | HP ---
HISTORY AND PHYSICAL HISTORY OF PRESENT ILLNESS: This white male came to the hospital with recurrent chest pain. He signed out AMA the day before after he refused heart catheterization for positive non-STEMI. He had a household dispute. He came back to the hospital. Vital signs reviewed. PAST MEDICAL HISTORY: Coronary artery disease, chest pain, anxiety, COPD, musculoskeletal disorder. REVIEW OF SYSTEMS: A 14-point review of systems otherwise negative. PHYSICAL EXAMINATION: VITAL SIGNS: Temperature 98.7, pulse 70s, respiratory rate 16 to 18, blood pressure 119 to 140s over 70s to 80s, and O2 94 to 96. LUNGS: Mild wheeze. CARDIOVASCULAR: S1, S2. NECK: Supple. ABDOMEN: Soft. EXTREMITIES: No cyanosis, clubbing, or edema. FAMILY HISTORY: Mother with cancer, diabetes. Father with cancer, diabetes. ALLERGIES: Morphine. LABORATORY DATA: Sodium 136, potassium 4.6, BUN 18, creatinine 0.91, hemoglobin is 15.5, creatinine 0.91. ASSESSMENT: 1. Unstable angina. 2. COPD. 3. Nicotine addiction. ASSESSMENT: Atypical chest pain. He is going to go for heart catheterization, admitted to the hospital. MMODL / IJN: [id number] /
[2023-02-10] MEDS ORDERED: PANTOPRAZOLE 40 MG/10 ML VIAL IVP ONE (00:51)
[2023-02-10] MEDS: ONDANSETRON 4 MG/2 ML VIAL IVP PRN ×2 (01:41→10:14)
[2023-02-10] MEDS: SODIUM CHLORIDE 0.9% 1,000 ML IV SCH ×2 (04:21→16:28)
[2023-02-10] MEDS ORDERED: HEPARIN SODIUM,PORCINE (1 ML) 2,500 UNIT in SODIUM CHLORIDE 0.9% 250 ML IRRIGATION PRN (07:00)
[2023-02-10] MEDS ORDERED: HEPARIN SODIUM,PORCINE 10,000 UNIT in SODIUM CHLORIDE 0.9% 1,000 ML IRRIGATION PRN (07:00)
[2023-02-10 08:40] LABS: Basophils % (A) 0 %; Eosinophils # (A) 0.2 k/uL (0-0.7); Eosinophils % (A) 1 %; HCT 52.2 % (39.0-53.0); HGB 16.7 gm/dL (13.0-17.5); Lymphocytes # (A) 1.1 k/uL (1.0-4.8); Lymphocytes % (A) 8 %; MCH 29.3 pg (25.0-35.0); MCV 91.6 fL (80.0-100.0); Mean Platelet Volume 7.7; Monocytes # (A) 0.4 k/uL (0-1.0); Monocytes % (A) 3 %; Neutrophils # (A) 11.8 k/uL (1.3-7.7); Neutrophils % (A) 86 %; Platelet Count 182 k/uL (150-450); RDW 13.1 % (11.5-15.5); WBC 13.7 k/uL (3.8-10.6)
[2023-02-10] MEDS ORDERED: ASPIRIN 81 MG PO SCH (09:00)
[2023-02-10] MEDS ORDERED: ASPIRIN 325 MG TAB PO SCH (09:00)
[2023-02-10] MEDS: IPRATROPIUM-ALBUTEROL 3 ML NEB INHALATION SCH ×3 (09:06→16:14)
[2023-02-10 09:19] LABS: ALT 39 U/L (4-49); AST 35 U/L (17-59); African American GFR (CKD) 48 (>60 ml/min/1.73 sqM); Albumin 3.6 g/dL (3.5-5.0); Alkaline Phosphatase 94 U/L (38-126); Anion Gap 9 mmol/L; Blood Urea Nitrogen 29 mg/dL (9-20); Carbon Dioxide 27 mmol/L (22-30); Chloride 99 mmol/L (98-107); Glucose 109 mg/dL (74-99); Non-African American GFR(CKD) 42 (>60 ml/min/1.73 sqM); Potassium 5.7 mmol/L (3.5-5.1); Sodium 135 mmol/L (137-145); Total Bilirubin 0.6 mg/dL (0.2-1.3); Total Protein 6.2 g/dL (6.3-8.2)
--- NOTE | 2023-02-10 09:30 | P.GSCN ---
History of Present Illness Consult date: 02/10/23 Reason for Consult: CAD, Requesting physician: Navi Cruz History of present illness: This is a 62-year-old gentleman who follows outpatient with Dr. Rickey Morrison for internal medicine. He has a previous medical history of hypertension, hyperlipidemia, current heavy tobacco dependence, COPD, covid infection in the past, family history of cancer, and family history of coronary artery disease with 2 brothers having had CABG and father diagnosed with CAD before the age of 60. This gentleman presented to [facility] a few days ago with complaints of chest pain at rest and with activity associated with shortness of breath and diaphoresis. Lab work revealed elevated troponin and patient was ru led in for non-STEMI and the patient was recommended to undergo heart catheterization, however he left AGAINST MEDICAL ADVICE due to problems at home. He presented to [facility] 2 days ago with complaints of the same, again leaving AGAINST MEDICAL ADVICE due to home/work-related issues. During that hospitalization he had an echocardiogram revealing left ventricular systolic function normal with EF 50-55%, moderate pulmonary hypertension, right and left atrial dilatation, moderate aortic stenosis with peak/mean gradient 58/38 mmHg, max velocity 3.8 m/s, and aortic valve area 0.9 cm, and mild aortic, mitral, tricuspid regurgitation. Once again this patient came back into the emergency room yesterday with similar complaints. This time he was agreeable to heart catheterization which was completed yesterday and which demonstrated distal left main stenosis 60-70%, ostial LAD stenosis 50%, ostial circumflex 80% stenosis with mid circumflex 70% stenosis, and mid RCA stenosis 50% diffuse disease. Due to this finding consultations placed to cardiothoracic surgery for surgical revascularization recommendations as well as consideration for aortic valve replacement. Review of Systems Review of systems was completed and was negative except as noted - Cardiovascular Reports as per HPI, Reports chest pain, Reports shortness of breath Past Medical History Past Medical History: Coronary Artery Disease (CAD), Chest Pain / Angina, COPD, GERD/Reflux, Hyperlipidemia, Hypertension, Myocardial Infarction (AL), Musculoskeletal Disorder Additional Past Medical History / Comment(s): HERNIATED DISCS, NOSEBLEEDS, BLOOD IN STOOL AND URINE AND SEVERE HEADACHES, C/O ITCHING ON HANDS AND FEET. WAS TOLD IN THE PAST THAT HIS STOMACH LINING WAS "ROTTED", states he has had covid but has not been vaccinated History of Any Multi-Drug Resistant Organisms: None Reported Past Surgical History: Orthopedic Surgery, Tonsillectomy Additional Past Surgical History / Comment(s): TONSILLS A CHILD, BILATERAL KNEE ARTHROSCOPY, PLATE LEFT FOOT Past Anesthesia/Blood Transfusion Reactions: No Reported Reaction Past Psychological History: ADD/ADHD, Anxiety Smoking Status: Current every day smoker Past Alcohol Use History: None Reported Past Drug Use History: None Reported Additional History: Admits to smoking one half packs of cigarettes per day for 30 years - Past Family History Mother Family Medical History: Cancer, Coronary Artery Disease (CAD), Diabetes Mellitus Additional Family Medical History / Comment(s): PANCREATIC CA, HX OF HEART PROBLEMS- TRIPLE BYPASS SURGERY, STENTS Father Family Medical History: Cancer, Coronary Artery Disease (CAD), Diabetes Mellitus Additional Family Medical History / Comment(s): LUNG CA, HX OF HEART PROBLEMS Brother(s) Family Medical History: Coronary Artery Disease (CAD) Additional Family Medical History / Comment(s): 2 brothers with CAD, both having had CABG Medications and Allergies Home Medications Medication Instructions Recorded Confirmed Type Aspirin EC [Ecotrin Low Dose] 81 mg PO DAILY #30 tab 02/08/23 02/09/23 Rx Atorvastatin [Lipitor] 80 mg PO DAILY #30 tab 02/08/23 02/09/23 Rx Metoprolol Succinate (ER) [Toprol 25 mg PO DAILY #30 tab 02/08/23 02/09/23 Rx XL] Allergies Allergy/AdvReac Type Severity Reaction Status Date / Time morphine Allergy Rash/Itchin Verified 02/07/23 14:40 g/Vomiting Surgical - Exam Vital Signs Temp Pulse Resp BP Pulse Ox 98.3 F 77 16 141/80 96 02/09/23 12:41 02/09/23 12:41 02/09/23 12:41 02/09/23 12:41 02/09/23 12:41 CONSTITUTIONAL: Awake and alert, appears comfortable, cooperative, well-d eveloped, well-nourished, no pain, no acute distress EYES: Pupils equal, round, reactive to light, normal ocular movement ENT: Moist mucous membranes without oral lesions present NECK: No masses, no bruits, trachea midline RESPIRATORY: Lungs sounds diminished bilaterally. Respirations even, no nlabored. Currently on room air with oxygen saturation 95%. Strong cough. No chest wall deformities. No clubbing or cyanosis present CARDIOVASCULAR: S1, S2 present. Regular rate and rhythm, sinus rhythm on telemetry. Palpable peripheral pulses bilaterally. No edema present. No calf pain or tenderness noted. No significant lower extremity varicosities noted. Left radial Ha's test less than 8 seconds. GASTROINTESTINAL: Abdomen soft, nontender, nondistended without masses or organomegaly noted. There is no rebound or guarding present. Active bowel sounds present 4 quadrants. GENITOURINARY: Deferred INTEGUMENTARY: Skin is warm and dry with evidence of good perfusion. NEUROLOGIC: Cranial nerves II through XII intact, normal coordination, no obvious motor or sensory deficits, speech is normal MUSKULOSKELETAL: Able to move all extremities, strength equal bilaterally, n ormal posture PSYCHIATRIC: Alert and oriented to person place and time, appropriate affect, intact judgment and insight Results - Labs 02/10/23 07:53 02/09/23 12:54 Abnormal Lab Results - Last 24 Hours (Table) 02/09/23 02/10/23 Range/Units 12:54 07:53 WBC 13.7 H (3.8-10.6) k/uL Neutrophils # 11.8 H (1.3-7.7) k/uL Sodium 136 L (137-145) mmol/L Diabetes panel 02/09/23 Range/Units 12:54 Sodium 136 L (137-145) mmol/L Potassium 4.6 (3.5-5.1) mmol/L Chloride 98 (98-107) mmol/L Carbon Dioxide 28 (22-30) mmol/L BUN 18 (9-20) mg/dL Creatinine 0.91 (0.66-1.25) mg/dL Glucose 93 (74-99) mg/dL Calcium 9.9 (8.4-10.2) mg/dL AST 35 (17-59) U/L ALT 32 (4-49) U/L Alkaline Phosphatase 101 (38-126) U/L Total Protein 7.2 (6.3-8.2) g/dL Albumin 4.3 (3.5-5.0) g/dL Calcium panel 02/09/23 Range/Units 12:54 Calcium 9.9 (8.4-10.2) mg/dL Albumin 4.3 (3.5-5.0) g/dL Pituitary panel 02/09/23 Range/Units 12:54 Sodium 136 L (137-145) mmol/L Potassium 4.6 (3.5-5.1) mmol/L Chloride 98 (98-107) mmol/L Carbon Dioxide 28 (22-30) mmol/L BUN 18 (9-20) mg/dL Creatinine 0.91 (0.66-1.25) mg/dL Glucose 93 (74-99) mg/dL Calcium 9.9 (8.4-10.2) mg/dL Adrenal panel 02/09/23 Range/Units 12:54 Sodium 136 L (137-145) mmol/L Potassium 4.6 (3.5-5.1) mmol/L Chloride 98 (98-107) mmol/L Carbon Dioxide 28 (22-30) mmol/L BUN 18 (9-20) mg/dL Creatinine 0.91 (0.66-1.25) mg/dL Glucose 93 (74-99) mg/dL Calcium 9.9 (8.4-10.2) mg/dL Total Bilirubin 0.6 (0.2-1.3) mg/dL AST 35 (17-59) U/L ALT 32 (4-49) U/L Alkaline Phosphatase 101 (38-126) U/L Total Protein 7.2 (6.3-8.2) g/dL Albumin 4.3 (3.5-5.0) g/dL - Imaging Additional studies: Cardiac catheterization and echocardiogram reports reviewed with Dr. Colon, will review films as well Assessment and Plan Assessment: Coronary artery disease with recent non-STEMI Moderate aortic stenosis Chest pain, shortness of breath secondary to above Hypertension Hyperlipidemia, cholesterol 174, LDL 72, triglycerides 210 Current heavy tobacco dependence COPD Covid infection in the past per patient Family history of cancer Family history of coronary artery disease, premature coronary artery disease Plan: The patient was seen and examined laying in bed on the cardiac stepdown unit in no acute distress. Currently denies chest pain or shortness of breath. Chart/diagnostics were reviewed. The usual perioperative course of open heart surgery was discussed in detail with the patient, risks and benefits were reviewed, all questions were answered, and the patient does consent to surgery if that is deemed to be the most appropriate course. Preoperative testing was initiated, once completed will calculate STS risk score and discuss with the patient. We'll perform 5 m walk test. The patient did express that he would need to go home and come back in prior to surgery as he runs his own business and needs to make sure it is stable prior to being hospitalized. He also states he is working on his home situation and heating source as he currently uses wood for heat. Discussion was had with the patient that if he does have surgery he cannot leave AGAINST MEDICAL ADVICE, this is a big surgery requiring extended re covery and it would not be safe to leave prematurely. The patient states he is willing to be compliant. Recommend continuing aspirin, statin, beta jerald therapy. Increase activity as tolerated. Once bedside spirometry is completed will consult pulmonology to maximize pulmonary status prior to surgery. Smoking cessation counseling and education provided, recommend complete smoking cessation. Medical management of other comorbidities per internal medicine service. More recommendations to follow. Thank you Dr. Cruz for this consult, we will continue to follow along with you. I have personally seen and examined the patient, performed the documentation and the assessment and plan as written. Number of minutes spent on the visit: 30. DENA Martinez
[2023-02-10] MEDS: METOPROLOL SUCCINATE (ER) 25 MG TAB.ER.24H PO SCH (09:49)
[2023-02-10] MEDS: NICOTINE 21MG/24HR PATCH TRANSDERM SCH (09:49)
--- NOTE | 2023-02-10 10:09 | US ---
EXAMINATION TYPE: Pre-Operative Non-Invasive Evaluation of the hand for Potential Radial Artery Beltran gardiner, Measurements only DATE OF EXAM: 02/10/2023 9:52 AM CLINICAL INDICATION: Male, 62 years old with history of measurements only; Preop cardiac surgery. SIDE PERFORMED: Left TECHNIQUE: Radial artery is measured utilizing real time linear array sonography. Dominant hand: Right Duplex Findings: Radial Artery: Color flow seen Measurements in mm, transverse view: Left Radial: Proximal: 3.5 x 3.8 mm Mid: 3.0 x 3.2 mm Distal: 3.2 x 4.0 mm IMPRESSION: As above
--- NOTE | 2023-02-10 10:09 | US ---
EXAMINATION TYPE: US carotid duplex BILAT DATE OF EXAM: 02/10/2023 COMPARISON: NONE CLINICAL INDICATION: Male, 62 years old with history of preop cardiac surgery; Preop cardiac surgery. TECHNIQUE: Carotid duplex ultrasound examination. Indirect Doppler criteria was utilized. FINDINGS: EXAM MEASUREMENTS: RIGHT: Peak Systolic Velocity (PSV) cm/sec ----- Right CCA: 104.3 ----- Right ICA: 121.1 ----- Right ECA: 99.5 ICA/CCA ratio: 1.2 RIGHT: End Diastole cm/sec ----- Right CCA: 30.5 ----- Right ICA: 38.3 ----- Right ECA: 13.9 LEFT: Peak Systolic Velocity (PSV) cm/sec ----- Left CCA: 116.0 ----- Left ICA: 164.1 ----- Left ECA: 143.1 ICA/CCA ratio: 1.4 LEFT: End Diastole cm/sec ----- Left CCA: 30.5 ----- Left ICA: 55.9 ----- Left ECA: 22.0 VERTEBRALS (direction of flow): Right Vertebral: Antegrade Left Vertebral: Antegrade Rhythm: Normal TOOL AND DIE SUPERVISOR NOTES: Intimal thickening seen bilateral carotid arteries. Plaque seen within bilateral b ulbs, bilateral ICA, and bilateral ECA. *Elevated velocities within left mid ICA and left ECA. IMPRESSION: No evidence for hemodynamically significant stenosis. Criteria for Assigning % of Stenosis / Diameter reduction (Estimation based on the indirect measurements of the internal carotid artery velocities (ICA PSV). 1. Normal (no stenosis)=ICA PSV < 125 cm/s: ratio < 2.0: ICA EDV<40 cm/s. 2. Less than 50% stenosis=ICA PSV < 125 cm/s: ratio < 2.0: ICA EDV<40 cm/s. 3. 50 to 69% stenosis=ICA PSV of 125 to 230 cm/s: ration 2.0 ? 4.0: ICA EDV 40-100 cm/s. 4. Greater than 70% stenosis to near occlusion= ICA PSV > 230 cm/s: ratio > 4.0: ICA EDV > 100 cm/s. 5. Near occlusion= ICA PSV velocities may be low or undetectable: variable ratio and ICA EDV. 6. Total occlusion=unable to detect flow.
--- NOTE | 2023-02-10 10:11 | US ---
EXAMINATION TYPE: US vein mapping BIL DATE OF EXAM: 02/10/2023 9:52 AM COMPARISON: NONE CLINICAL INDICATION: Male, 62 years old with history of preop cardiac surgery; Preop cardiac surgery SIDE PERFORMED: Bilateral TECHNIQUE: Lower extremity saphenous vein is examined and measured utilizing real time linear array sonography. Patient History: Smoker: Yes Heart Disease: Yes Previous DVT: No Vascular Surgery: No Discoloration: No Hypertension: No Diabetes: No Paralysis: Varicosities: No Edema: No DUPLEX FINDINGS: Greater Saphenous: Color flow seen Measurements in mm: Right Greater Saphenous: Groin: 4.0 x 4.5 mm High Thigh: 3.8 x 4.7 mm Mid Thigh: 2.9 x 3.7 mm Above Knee: 3.2 x 4.2 mm Knee: 3.7 x 4.0 mm Below Knee: 2.8 x 3.7 mm Mid Calf: 1.6 x 1.8 mm At Ankle: 1.4 x 2.3 mm Left Greater Saphenous: Groin: 3.0 x 3.6 mm High Thigh: 2.2 x 2.5 mm Mid Thigh: 1.5 x 2.4 mm Above Knee: 1.0 x 1.4 mm Knee: 1.4 x 1.2 mm Below Knee: 0.9 x 1.5 mm Mid Calf: 1.2 x 1.5 mm At Ankle: Unable to visualize IMPRESSION: 1. Bilateral GSV measurements listed above. 2. Performing surgeon to determine viability as conduit.
--- NOTE | 2023-02-10 12:44 | P.PN ---
Subjective HISTORY OF PRESENT ILLNESS: 02/09/2023 Patient is a 62-year-old male with past medical history of smoking who smokes 1 pack per day. He also has history of hypertension and COPD. Patient initially presented to [facility] over the weekend for substernal chest heaviness which has been going on for last 2-3 weeks. The symptoms are more pronounced lately because of significant emotional stress due to household dispute he is dealing with. He left [facility]. On 02/07/23 time he presented to the [facility] because of substernal chest heaviness. His ECG shows sinus rhythm with concerns of LVH. He had mildly elevated d- dimer. This was followed up by CTA PE protocol which showed moderate coronary calcification, moderate aortic valve calcification, emphysematous chronic lung changes. It did not show any evidence of pulmonary embolism On admission his has a troponin with a flat pattern of 0.08. He has normal kidney function and normal hemoglobin levels. He again left AGAINST MEDICAL ADVICE on 02/08/2023. He said that he had significant household dispute going on at home for which he needs to leave the hospital. He was advised that he should not leave the hospital and it at high risk of . He was advised to followup outpatient. Today he presented to the hospital again. He does report having symptoms of substernal chest heaviness on and off mostly with exertion. He denies any lightheadedness or dizziness. He denies any palpitations. 02/10/2023 Patient is status post cardiac catheterization yesterday revealing 60% distal left main disease, 50% ostial LAD disease, 80% ostial left circumflex disease, and severe aortic stenosis. Patient examined this afternoon at the bedside. Patient denies any chest pain or pressure. He denies shortness of breath. Vital signs are stable. Patient is requesting to be discharged home today. PHYSICAL EXAM: VITAL SIGNS: Reviewed. GENERAL: Well-developed in no acute distress. NECK: Supple. No JVD or thyromegaly LUNGS: Respirations even and unlabored. Lungs essentially clear to auscultation bilaterally. HEART: Regular rate and rhythm. S1 and S2 heard. Systolic murmur noted EXTREMITIES: Normal range of motion. No clubbing or cyanosis. Peripheral pulses intact. No lower extremity edema ASSESSMENT: Unstable angina, status post cardiac catheterization revealing triple vessel disease Moderate to severe aortic stenosis Hypertension Hyperlipidemia COPD Nicotine dependence PLAN: Continue current cardiac medications Continue telemetry monitoring. Continue to monitor blood pressure. CT surgery has been consulted for evaluation Smoking cessation recommended Further recommendations pending patient's course Nurse practitioner note has been reviewed by physician. Signing provider agrees with the documented findings, assessment, and plan of care. Objective - Vital Signs Vital signs: Vital Signs Temp 97.9 F 02/10/23 00:05 Pulse 71 02/10/23 08:54 Resp 15 02/10/23 08:54 BP 117/61 02/10/23 08:54 Pulse Ox 94 L 02/10/23 08:54 FiO2 Intake & Output 02/09/23 02/10/23 02/10/23 18:59 06:59 18:59 Intake Total 220 Balance 220 Weight 77.111 kg Intake: IV 100 Oral 120 Other: Voiding Method Toilet - Labs CBC & Chem 7: 02/10/23 07:53 02/10/23 07:53 Labs: Abnormal Lab Results - Last 24 Hours (Table) 02/09/23 02/10/23 02/10/23 Range/Units 12:54 07:53 07:53 WBC 13.7 H (3.8-10.6) k/uL Neutrophils # 11.8 H (1.3-7.7) k/uL Sodium 136 L 135 L (137-145) mmol/L Potassium 5.7 H (3.5-5.1) mmol/L BUN 29 H (9-20) mg/dL Creatinine 1.75 H (0.66-1.25) mg/dL Glucose 109 H (74-99) mg/dL Total Protein 6.2 L (6.3-8.2) g/dL
--- NOTE | 2023-02-10 14:51 | US ---
EXAMINATION TYPE: US arterial LE single level DATE OF EXAM: 02/10/2023 2:27 PM CLINICAL INDICATION: Male, 62 years old with history of Ankle Brachial Index (CODY); open heart History of: Smoker: Current Smoker Hypertension: Yes Diabetic: No Hyperlipidemia: No TIA/CVA: No Previous Vascular Surgery: No CAD: No DC: No Vascular Ulcers: No Claudication: No Gangrene: No Doppler Waveforms: Right: Multiphasic Left: Multiphasic Ankle-Brachial Indices: Right: 1.36 Left: 1.45 Toe Brachial Indices: Right: 0.50 Left: 0.39 IMPRESSION: 1. Abnormal right CODY. 2. Elevated left CODY can occasionally be associated with densely atherosclerotic vessels. The TBI on the left suggests mild peripheral atherosclerotic disease.
[2023-02-10 16:06] VITALS: BP 129/72; RESP 16
[2023-02-10 16:33] LABS: Chol/HDL Ratio 3.06 Ratio; LDL Cholesterol,Calculated 103.9 mg/dL (0.0-131.0)
[2023-02-10 16:49] VITALS: PULSE 84
[2023-02-10] MEDS ORDERED: methylPREDNISolone SOD SUCCI 125 MG/2 ML VIAL IV STA (17:19)
[2023-02-10] MEDS ORDERED: diphenhydrAMINE 50 MG/ML 1 ML VIAL IVP STA (17:19)
[2023-02-10 18:34] LABS: Hepatitis A Antibody IgM Nonreactive; Hepatitis B Core IgM Nonreactive; Hepatitis B Surface Antigen Nonreactive; Hepatitis C IgG Antibody Nonreactive
[2023-02-10] MEDS ORDERED: ATORVASTATIN 80 MG TAB PO SCH (21:00)
--- NOTE | 2023-02-15 12:11 | CDI ---
Documentation Clarification Form Date: 02/15/2023 12:00:17 PM From: Antonia Mayorga RN, CCDS Email: [email or web address] Admit Date: 02/10/2023 08:02:00 AM Patient Name: Patricio Morris Visit Number: [id number] Discharge Date: 02/10/2023 06:15:00 PM ATTENTION: The Clinical Documentation Specialists (CDI) and [facility] Coding Staff appreciate your assistance in clarifying documentation. Please respond to the clarification below the line at the bottom and electronically sign. The CDI & [facility] Coding staff will review the response and follow-up if needed. Please note: Queries are made part of the Legal Health Record. If you have any questions, please contact the author of this message via ITS. Dr. Rickey Morrison Your patient had an increase in BUN/Cr on 02/10. Based on this information and the findings below, is there an additional diagnosis that is clinically appropriate for this patient? Patient history/risk factors: CAD, chest pain, anxiety and COPD. Admitted with NSTEMI, s/p cardiac catheterization with fluoroscopic guidance revealing stenosis and diffuse disease. Recommendation for CABG and AVR. Clinical Indicators: 02/09 BUN/Cr/GFR: 18/0.91/90 02/10 BUN/Cr/GFR: 29/1.75/42 Treatment: Monitor labs; 0.9 NS @100mL/hr on 02/09 and 75mL/hr on 02/10 Is there an additional diagnosis that is clinically appropriate for this patient? [ ] Acute Kidney Injury [ ] No additional diagnosis/Not clinically significant [ ] Unable to determine [ ] Other, please specify Reference: KDIGO POOJA Criteria An increase in serum creatinine by greater than or equal to 0.3 mg/dL within 48 hours; An increase in serum creatinine by greater than or equal to 1.5 times baseline, which is known or presumed to have occurred within the prior 7 days; A urine volume less than 0.5 ml/kg/h for 6 hours. When the baseline is unknown the lowest creatinine during admission assumed to be baseline MTDD
--- NOTE | 2023-02-19 19:22 | PN ---
PROGRESS NOTE Acute kidney injury. MMODL / IJN: [id number] /
== END 2023-02-10 18:15 | disposition home or self-care (01) | DRG 281 ==
LOC: EC 12:35 → 3SCARD 13:30 → OBSVTOIN 02-10 08:02
PROVIDERS: ADMIT Family Medicine; ATTEND Family Medicine
PROC: B2111ZZ Fluoroscopy of Multiple Coronary Arteries using Low Osmolar Contrast (ICD-10-PCS; principal; 2023-02-09 15:20)
DX: I21.4 Non-ST elevation (NSTEMI) myocardial infarction (principal); N17.9 Acute kidney failure, unspecified; I27.20 Pulmonary hypertension, unspecified; I11.9 Hypertensive heart disease without heart failure; J43.9 Emphysema, unspecified; I08.3 Combined rheumatic disorders of mitral, aortic and tricuspid valves; I25.110 Atherosclerotic heart disease of native coronary artery with unstable angina pectoris; I25.84 Coronary atherosclerosis due to calcified coronary lesion; Z53.8 Procedure and treatment not carried out for other reasons; F17.210 Nicotine dependence, cigarettes, uncomplicated; E78.5 Hyperlipidemia, unspecified; Z86.16 Personal history of COVID-19; Z28.310 Unvaccinated for COVID-19; Z63.8 Other specified problems related to primary support group; Z56.9 Unspecified problems related to employment; Z79.82 Long term (current) use of aspirin; Z88.5 Allergy status to narcotic agent; Z79.899 Other long term (current) drug therapy; Z82.49 Family history of ischemic heart disease and other diseases of the circulatory system; Z80.1 Family history of malignant neoplasm of trachea, bronchus and lung
CPT/HCPCS: 36415; 76937; 80053; 80061; 80074; 83036; 83735; 84443; 84484; 85025; 85610; 85730; 93005; 93454; 93880; 93922; 93970; 94150; 94640; 99285

== ENCOUNTER → 2023-02-25 | Outpatient (CLI) | payer MEDICARE ==
[2023-02-25 11:54] LABS: INR 0.8 (<1.2); Partial Thromboplastin Time 24.9 sec (22.0-30.0); Prothrombin Time 9.5 sec (10.0-12.5)
[2023-02-25 15:39] LABS: ALT 18 U/L (10-49); AST 22 U/L (14-35); Albumin 4.2 g/dL (3.8-4.9); Alkaline Phosphatase 122 U/L (41-126); Calcium 9.4 mg/dL (8.7-10.3); Carbon Dioxide 29.8 mmol/L (21.6-31.8); Chloride 103 mmol/L (96-109); Glucose 68 mg/dL (70-110); Potassium 5.1 mmol/L (3.5-5.5); Sodium 141 mmol/L (135-145); Total Bilirubin 0.2 mg/dL (0.3-1.2); Total Protein 6.2 g/dL (6.2-8.2)
[2023-02-25 16:49] LABS: HCT 44.3 % (39.6-50.0); HGB 14.2 g/dL (13.0-17.0); MCH 29.2 pg (27.0-32.0); MCHC 32.1 g/dL (32.0-37.0); Mean Platelet Volume 10.2 FL (9.5-12.2); NRBC Per 100 WBC 0 X 10*3/uL (0.00-0.01); Platelet Count 165 X 10*3/uL (140-440); RBC 4.87 X 10*6/uL (4.40-5.60); RDW 13.2 % (11.5-14.5); WBC 8.01 X 10*3/uL (4.50-10.00)
== END | disposition home or self-care (01) ==
LOC: LABWHC1 10:58
PROVIDERS: ATTEND Thoracic Surgery (Cardiothoracic Vascular Surgery)
DX: Z01.812 Encounter for preprocedural laboratory examination (principal)
CPT/HCPCS: 36415; 80053; 85027; 85610; 85730; 86850; 86900; 86901; 86920; 87070; 87086

== ENCOUNTER 2023-03-02 06:30 | Inpatient (IN) | payer MEDICARE ==
[2023-02-25 11:54] LABS: INR 0.8 (<1.2); Partial Thromboplastin Time 24.9 sec (22.0-30.0); Prothrombin Time 9.5 sec (10.0-12.5)
[2023-02-25 15:39] LABS: ALT 18 U/L (10-49); AST 22 U/L (14-35); Albumin 4.2 g/dL (3.8-4.9); Alkaline Phosphatase 122 U/L (41-126); Calcium 9.4 mg/dL (8.7-10.3); Carbon Dioxide 29.8 mmol/L (21.6-31.8); Chloride 103 mmol/L (96-109); Glucose 68 mg/dL (70-110); Potassium 5.1 mmol/L (3.5-5.5); Sodium 141 mmol/L (135-145); Total Bilirubin 0.2 mg/dL (0.3-1.2); Total Protein 6.2 g/dL (6.2-8.2)
[2023-02-25 16:49] LABS: HCT 44.3 % (39.6-50.0); HGB 14.2 g/dL (13.0-17.0); MCH 29.2 pg (27.0-32.0); MCHC 32.1 g/dL (32.0-37.0); Mean Platelet Volume 10.2 FL (9.5-12.2); NRBC Per 100 WBC 0 X 10*3/uL (0.00-0.01); Platelet Count 165 X 10*3/uL (140-440); RBC 4.87 X 10*6/uL (4.40-5.60); RDW 13.2 % (11.5-14.5); WBC 8.01 X 10*3/uL (4.50-10.00)
[~2023-03-02 06:30] MED LIST: ALBUMIN HUMAN 25% 50 ML IV ONE; ALBUMIN HUMAN 5% 500 ML IVPB ONE; ASPIRIN 325 MG TAB PO ONE; ATORVASTATIN 10 MG TAB PO ONE; CALCIUM CHLORIDE 100 MG/ML 10 ML SYRINGE IV ONE; CARDIOPLEGIC SOLN (K+ 16 MEQ/L 1,000 ML with SODIUM BICARB (1 MEQ/ML) 20 ML, LIDOCAINE ... PERFUSION ONE; CHLORHEXIDINE GLUCONATE 15 ML CUP MUCOUS MEM ONE; CLEVIDIPINE BUTYRATE 25 MG in EMPTY BAG 1 BAG IV ONE; DILTIAZEM 125 MG in SODIUM CHLORIDE 0.9% 100 ML IV ONE; HEPARIN SODIUM 1,000 UN/ML (10ML VL) IV ONE; HEPARIN SODIUM,PORCINE (1 ML) 5,000 UNIT in SODIUM CHLORIDE 0.9% 500 ML 500 ML IV ONE; INSULIN REGULAR 100 UNIT in SODIUM CHLORIDE 0.9% 100 ML IV ONE; LACTATED RINGERS 1,000 ML IV ONE; MAGNESIUM SULFATE 16.24 MEQ in EMPTY SYRINGE 1 SYR IV ONE; MANNITOL 25% 12.5 GM/50 ML VIAL IV ONE; METOPROLOL TARTRATE 12.5 MG TAB PO ONE; NITROGLYCERIN SL TABS 0.4 MG TAB SUBLINGUAL ONE; NITROGLYCERIN-D5W PMX 25 MG/250 ML BTL IV ONE; NITROGLYCERIN-D5W PMX 50 MG in DEXTROSE/WATER 1 250ML.BAG IV ONE; NOREPINEPHRINE 4 MG in SODIUM CHLORIDE 0.9% 250 ML IV ONE; PAPAVERINE 360 MG in SODIUM CHLORIDE 0.9% 90 ML IV ONE; PHENYLEPHRINE 10 MG/ML VIAL IV ONE; PHENYLEPHRINE 40 MG in SODIUM CHLORIDE 0.9% 250 ML IV ONE; PROTAMINE SULFATE 10 MG/ML 25 ML VIAL IV ONE; PROTAMINE SULFATE 250 MG in EMPTY BAG 1 BAG IV ONE; SODIUM BICARB 8.4% 50 ML SYR (1 MEQ/ML) IV ONE; SODIUM CHLORIDE 0.9% 1,000 ML IV ONE; TRANEXAMIC ACID 2,000 MG in SODIUM CHLORIDE 0.9% 80 ML IV ONE; ceFAZolin 1,000 MG in SODIUM CHLORIDE 0.9% IRRIGATIO 1,000 ML IRRIGATION ONE; propofoL 1,000 MG/100 ML VIAL IV ONE
--- NOTE | 2023-03-02 07:02 | P.PN ---
Progress Note - Text Progress Note Date: 03/02/23 5 meter walk test was completed with the patient, tolerated well without any complaints, time 1: 2.08 seconds, time 2: 2.58 seconds, time 3: 2.23 seconds.
[2023-03-02] MEDS ORDERED: HYDROmorphone (PF) 1 MG/ML ONE (08:05)
[2023-03-02] MEDS ORDERED: PROTAMINE SULFATE 10 MG/ML 25 ML VIAL IV ONE (08:05)
[2023-03-02] MEDS ORDERED: TRANEXAMIC 1,000 MG/100ML-NACL PREMIX BAG ONE (08:05)
[2023-03-02] MEDS ORDERED: KETAMINE HCL IN 0.9 % NACL 50 MG/5 ML SYRINGE ONE (08:05)
[2023-03-02] MEDS ORDERED: VECURONIUM 10 MG VIAL IV ONE (08:05)
[2023-03-02] MEDS ORDERED: MIDAZOLAM HCL 10 MG/10 ML VIAL ONE (08:05)
[2023-03-02] MEDS ORDERED: PROPOFOL 10 MG/ML 20 ML VIAL IV ONE (08:05)
[2023-03-02] MEDS ORDERED: ePHEDrine 50 MG/ML 1 ML VIAL ONE (08:05)
[2023-03-02] MEDS ORDERED: ALBUMIN HUMAN 5% (25gm) 500 ML VIAL IVPB ONE (08:05)
[2023-03-02 08:40] LABS: ABG Base Excess 0.3 mmol/L; ABG Glucose Whole Blood 94 mg/dL (75-99); ABG HCO3 27 mmol/L (21-25); ABG Hematocrit 36 % (34.0-46.0); ABG Ionized Calcium 4.7 mg/dL (4.5-5.3); ABG Lactic Acid Whole Blood 0.5 mmol/L (0.5-1.6); ABG Oxygen Saturation 99.8 % (94-97); ABG PCO2 52 mmHg (35-45); ABG PH 7.32 (7.35-7.45); ABG PO2 220 mmHg (83-108); ABG Potassium Whole Blood 4.7 mmol/L (3.4-4.5); ABG Sodium Whole Blood 141 mmol/L (135-146); ABG TCO2 29 mmol/L (19-24)
[2023-03-02] MEDS ORDERED: SODIUM CHLORIDE 0.9% 500 ML 500 ML with HEPARIN SODIUM,PORCINE (1 ML) 5,000 UNIT IV ONE ×2 (09:43)
[2023-03-02] MEDS ORDERED: PAPAVERINE 360 MG in SODIUM CHLORIDE 0.9% 90 ML IV ONE (09:43)
[2023-03-02] MEDS ORDERED: ceFAZolin 1,000 MG in SODIUM CHLORIDE 0.9% 1,000 ML IRRIGATION ONE (09:44)
[2023-03-02 09:54] LABS: ABG Glucose Whole Blood 118 mg/dL (75-99); ABG HCO3 26 mmol/L (21-25); ABG Hematocrit 32 % (34.0-46.0); ABG Ionized Calcium 4.6 mg/dL (4.5-5.3); ABG Lactic Acid Whole Blood 0.7 mmol/L (0.5-1.6); ABG Oxygen Saturation 99.8 % (94-97); ABG PCO2 56 mmHg (35-45); ABG PH 7.27 (7.35-7.45); ABG PO2 238 mmHg (83-108); ABG Potassium Whole Blood 4.7 mmol/L (3.4-4.5); ABG Sodium Whole Blood 142 mmol/L (135-146); ABG TCO2 27 mmol/L (19-24)
[2023-03-02 10:22] LABS: ABG Base Excess 1.4 mmol/L; ABG Glucose Whole Blood 122 mg/dL (75-99); ABG HCO3 26 mmol/L (21-25); ABG Hematocrit 28 % (34.0-46.0); ABG Ionized Calcium 3.8 mg/dL (4.5-5.3); ABG Lactic Acid Whole Blood 0.7 mmol/L (0.5-1.6); ABG PCO2 42 mmHg (35-45); ABG PH 7.41 (7.35-7.45); ABG Potassium Whole Blood 4.7 mmol/L (3.4-4.5); ABG Sodium Whole Blood 141 mmol/L (135-146); ABG TCO2 28 mmol/L (19-24)
[2023-03-02 11:33] LABS: ABG Base Excess -2.3 mmol/L; ABG Glucose Whole Blood 136 mg/dL (75-99); ABG HCO3 23 mmol/L (21-25); ABG Hematocrit 29 % (34.0-46.0); ABG Ionized Calcium 4.3 mg/dL (4.5-5.3); ABG Lactic Acid Whole Blood 1.9 mmol/L (0.5-1.6); ABG PCO2 40 mmHg (35-45); ABG PH 7.36 (7.35-7.45); ABG Potassium Whole Blood 4.6 mmol/L (3.4-4.5); ABG Sodium Whole Blood 140 mmol/L (135-146); ABG TCO2 24 mmol/L (19-24)
[2023-03-02 11:55] LABS: ABG Base Excess -2.8 mmol/L; ABG Glucose Whole Blood 132 mg/dL (75-99); ABG HCO3 23 mmol/L (21-25); ABG Hematocrit 29 % (34.0-46.0); ABG Ionized Calcium 4.3 mg/dL (4.5-5.3); ABG Lactic Acid Whole Blood 1.9 mmol/L (0.5-1.6); ABG PCO2 42 mmHg (35-45); ABG PH 7.34 (7.35-7.45); ABG Potassium Whole Blood 4.7 mmol/L (3.4-4.5); ABG Sodium Whole Blood 141 mmol/L (135-146); ABG TCO2 24 mmol/L (19-24)
[2023-03-02 12:39] LABS: ABG PO2 >420 mmHg (83-108)
[2023-03-02 12:49] LABS: ABG PO2 >420 mmHg (83-108)
[2023-03-02 12:50] LABS: ABG PO2 >420 mmHg (83-108)
[2023-03-02] MEDS ORDERED: AMIODARONE 450 MG in DEXTROSE 5% IN WATER 250 ML IV PRN ×2 (13:16)
[2023-03-02] MEDS ORDERED: Magnesium Replacement Protocol 1 EACH MISC MISCELLANE PRN (13:16)
[2023-03-02] MEDS ORDERED: BENZOCAINE/MENTHOL LOZENG 1 EACH LOZENGE MUCOUS MEM PRN (13:16)
[2023-03-02] MEDS ORDERED: ONDANSETRON 4 MG/2 ML VIAL IVP PRN (13:16)
[2023-03-02] MEDS ORDERED: hydrALAZINE HCL 20 MG/ML 1 ML VIAL IVP PRN (13:16)
[2023-03-02] MEDS ORDERED: Potassium Replacement Protocol 1 EACH MISC MISCELLANE PRN (13:16)
[2023-03-02] MEDS ORDERED: IPRATROPIUM-ALBUTEROL 3 ML NEB INHALATION PRN (13:16)
[2023-03-02] MEDS ORDERED: CLEVIDIPINE BUTYRATE 25 MG in EMPTY BAG 1 BAG IV SCH (13:16)
[2023-03-02] MEDS ORDERED: DEXTROSE 5% IN WATER 100 ML with AMIODARONE 150 MG IV PRN (13:16)
[2023-03-02] MEDS ORDERED: METOCLOPRAMIDE 5 MG/ML 2 ML VIAL IVP PRN (13:16)
[2023-03-02] MEDS ORDERED: AMIODARONE 360 MG in DEXTROSE 5% IN WATER 200 ML IV PRN ×2 (13:16)
[2023-03-02] MEDS ORDERED: NITROGLYCERIN-D5W PMX 50 MG in DEXTROSE/WATER 1 250ML.BAG IV SCH (13:16)
[2023-03-02] MEDS ORDERED: DEXTROSE 50% SYRINGE 50 ML IVP PRN ×2 (13:16)
[2023-03-02] MEDS ORDERED: INSULIN REGULAR 100 UNIT in SODIUM CHLORIDE 0.9% 100 ML IV SCH (13:16)
--- NOTE | 2023-03-02 13:35 | P.OP ---
Date of Procedure: 03/02/23 Preoperative Diagnosis: Coronary artery disease, aortic stenosis with congenital bicuspid aortic valve Postoperative Diagnosis: Same Procedure(s) Performed: Aortic valve replacement with 27 mm Bill Inspiris bovine pericardial valve prosthesis, CABG 2 with VENEGAS to LAD and left radial artery graft to intermediate coronary artery, ligation of the left atrial appendage with 35 mm AtriCure clip, endoscopic harvesting of the left radial artery. Implants: 27 mm Bill Inspiris probing pericardial valve prosthesis, 35 mm AtriCure clamp [facility] Surgeon: Fernie Colon City Supervisor #1: Allen Ryan Estimated Blood Loss (ml): 500 IV fluids (ml): 2,500 Urine output (ml): 700 Pathology: other (Aortic valve) Condition: stable Disposition: ICU Indications for Procedure: 62-year-old male with symptomatic severe aortic stenosis secondary to calcified bicuspid aortic valve, significant coronary artery disease Operative Findings: Heavily calcified bicuspid aortic valve, good coronary targets, good conduits, algaaciq aortic annulus excepting a 27 mm sizer, good ventricular function. Description of Procedure: Patient was brought to operating room placed supine on operating table. Monitoring lines had been placed in the preop holding area. General anesthesia was induced. Patient was intubated and appropriately positioned. Intraoperative torso lower extremities the left upper extremity were appropriately prepped and draped. The left radial artery was harvested with endovascular technique. Following completion of harvest, the wound was closed and the arm was dressed and tucked at the patient's side. Simultaneous sternotomy was performed. Left hemisternum was retracted upwards and the left internal mammary artery harvested on a vascularized pedicle left intact on its origin from the subclavian. Left pleural space was drained with a 32-Estonian chest tube. Standard sternal retractor was placed. Pericardium was opened in the midline and the heart was exposed with pericardial sutures. Patient was systemically heparinized and cannulated for cardioplegia bypass with a 7 mm soft flow cannula in the distal ascending aorta and a two-stage venous cannula through the right atrial appendage into the inferior vena cava. Antegrade and retrograde cardiac lesion was replaced in standard fashion. Patient was placed on cardiopulmonary bypass. Purstring suture was placed in the right superior pulmonary vein. Coronary targets were identified. LAD was a large vessel which was intramyocardial and identified fairly proximally. Intermediate coronary artery was a large vessel which had a soft spot and then bifurcated early. The distal circumflex coronary artery branches were very small. Conduits were appropriately prepared. 35 mm AtriCure clip was placed at the base of the ascending aorta. The aorta was crossclamped and the heart arrested with cold crystalloid antegrade cardioplegia followed by retrograde cardioplegia. Atrial vent was placed through the right superior pulmonary vein pursestring. Intermediate coronary artery was opened just proximal to its bifurcation was a 2.5 mm vessel which accepted a 2 mm probe distally into each of the 2 branches. Proximally a calcific lesion was noted. Radial artery was anastomosed in end-to-side fashion with running 7-0 Prolene sutures. On completion anastomosis was flushed with cold blood artery plegia and flowed very well. Radial artery was of more than adequate length to reach the ascending aorta. Next the LAD was opened. Was also a 2.5 mm vessel which accepted the 2 mm probe distally. VENEGAS was anastomosed end-to-side fashion to the LAD fairly proximally with a running 8-0 Prolene suture. On completion anastomosis was briefly opened and noted to flow well with no evidence of leak and was then reoccluded. The LAUREN pedicle was tacked surrounding epicardium with 6-0 silk sutures. Transverse aortotomy was now made above the sinotubular junction and the aortic valve was exposed. It was a heavily calcified congenitally bicuspid valve with fusion of the left and right coronary cath. The valve was excised. The annulus was debrided of calcium. Annulus was copiously debrided with cold saline. Circumferential valve sutures of 2-0 Tycron were placed with pledgets on the ventricular side to allow a supra-annular implantation. The valve annulus was sized and a 27 mm Bill bovine pericardial valve prosthesis was chosen and brought up on the field. Valve sutures were placed through sewing ring of the valve and it was seated without difficulty. Sutures were tied and cut the valve was noted to seat well. The aortic root was again copiously irrigated with cold saline. The artery was closed with a 2 layer running closure of 4-0 Prolene suture. Patient was systemically rewarmed from a humberto temperature of about 35. 4 mm punch hole was created in the mid ascending aorta and the proximal anastomosis was constructed with 6-0 Prolene suture. The radial artery was cut to appropriate length for the anastomosis. Upon completion of the anastomosis, left atrial vent was removed and the pursestring suture was tied. A she was placed in steep Trendelenburg and the cross-clamp was removed. Aorta was vented through the aortic root. Atrial and ventricular pacing wires were placed and the patient was paced. De-airing was monitored with the ERICK. Aortic vent line was then removed and oversewn with a 4-0 Prolene pledgeted suture. Patient was weaned from cardiopulmonary bypass without the use of inotropic support and easily. Pump was returned to the patient and then the patient was decannulated. Aortic cannulation site was reinforced with a 40 pledgeted Prolene suture. ERICK demonstrated excellent function of the aortic valve with no significant gradients. Cardiac output was 6-1/2 L. There was no evidence of central or paravalvular leak. Heparin was reversed with protamine and good hemostasis obtained throughout. Mediastinum was drained with a 36-Estonian chest tube. After assuring good hemostasis, the chest was irrigated with antibiotic solution's and the sternum was closed with 8 sternal wires. Fascia was closed with 0 Ethibond. Subcutaneous and subcuticular layers were closed with layers of Vicryl suture. Dry sterile dressings were applied the patient was transferred to the ICU in stable hemodynamic condition on no inotropic support having received no blood transfusions.
[2023-03-02 13:44] LABS: Glucose,Whole Blood 122 mg/dL (70-110)
[2023-03-02] MEDS: ALBUMIN HUMAN 5% 250 ML in EMPTY BAG 1 BAG IVPB PRN ×4 (13:47→14:49)
[2023-03-02] MEDS: LACTATED RINGERS 1,000 ML IV SCH (13:47)
[2023-03-02 13:54] LABS: Basophils % (A) 0 %; Eosinophils # (A) 0.1 k/uL (0-0.7); Eosinophils % (A) 1 %; Lymphocytes # (A) 0.8 k/uL (1.0-4.8); Lymphocytes % (A) 9 %; MCH 30.6 pg (25.0-35.0); MCHC 33.1 g/dL (31.0-37.0); MCV 92.3 fL (80.0-100.0); Mean Platelet Volume 9.6; Monocytes # (A) 0.5 k/uL (0-1.0); Monocytes % (A) 6 %; Neutrophils # (A) 7.3 k/uL (1.3-7.7); Neutrophils % (A) 83 %; RBC 3.36 m/uL (4.30-5.90); RDW 12.9 % (11.5-15.5); WBC 8.7 k/uL (3.8-10.6)
--- NOTE | 2023-03-02 13:58 | P.ANPRN ---
Procedure Note - Anesthesia - Invasive Line Right Arterial Line Time Out Performed: Yes Date of Procedure: 03/02/23 Time of Procedure: 07:20 Location of Patient: PreOp Preparation: Sterile Prep, Sterile Dressing Arterial Line Location: Radial Ultrasound Used: No Purpose - Visualization and Identification of Vasculature: No Needle Guage: 20 Narrative: R radial arterial line placed by SRNA via palpation using Seldinger technique Right Central Line Time Out Performed: Yes Date of Procedure: 03/02/23 Time of Procedure: 07:30 Location of Patient: PreOp Preparation: Sterile Prep, Sterile Dressing Central Line Location: Internal Jugular Ultrasound Used: Yes Purpose - Visualization and Identification of Vasculature: Yes Needle Guage: 18 Image Stored and Saved: Yes Narrative: Central line placement per sterile protocol utilized. Right Box Elder Sebas Time Out Performed: Yes Date of Procedure: 03/02/23 Time of Procedure: 07:40 Location of Patient: PreOp Preparation: Sterile Prep, Sterile Dressing Box Elder Sebas Line Location: Internal Jugular Ultrasound Used: No Purpose - Visualization and Identification of Vasculature: No Image Stored and Saved: No Narrative: RIJ Box Elder all ports flushed and balloon tested. Advanced until RV and then PA waveforms obtained. Box Elder secured at 53 cm. Position checked on ERICK.
--- NOTE | 2023-03-02 14:01 | P.ANPRN ---
Procedure Note - Anesthesia - ERICK Intraop Pre Bypass ERICK Intraop - Anesthesia Date of Procedure: 03/02/23 Pre-operative Diagnosis: Aortic stenosis and CAD Post-operative Diagnosis: same Surgeon: Fernie Colon Left Ventricle: EF 60 Ejection Fraction: Normal Regional Wall Motion Abnormalities: None Left Ventricle Hypertrophy: Yes R. Ventricle Function: Normal Anatomy: Trileaflet Aortic Stenosis: Severe Aortic Regurgitation: Mild Mitral Stenosis: None Mitral Regurgitation: Trace Tricuspid Stenosis: None Tricuspid Regurgitation: None Pulmonic Stenosis: None Pulmonic Regurgitation: None R. Atrial Dilation: No R. Atrial PFO: No L. Atrial Dilation: No Aortic Dissection: No Aortic Calcification: Moderate Plural Effusion: None - ERICK Intraop Post Bypass ERICK Intraop Post Bypass Procedure Performed: s/p AVR and CABG x 2 Left Ventricle: EF 60 Ejection Fraction: Normal Regional Wall Motion Abnormalities: None R. Ventricle Function: Normal Aortic Valve: Peak 16 mmHg, Mean 7 mmHg. 27 mm Bioprosthetic valve in good position. No perivalvular leak Mitral Valve: Unchanged Tricuspid: Unchanged Pulmonic: Unchanged Aortic Dissection: No
[2023-03-02 14:05] LABS: Prothrombin Time 10.5 sec (10.0-12.5)
[2023-03-02 14:22] LABS: HGB 10.3 gm/dL (13.0-17.5); Ionized Calcium 4.9 mg/dL (4.5-5.3)
--- NOTE | 2023-03-02 14:24 | XR ---
EXAMINATION TYPE: XR chest 1V portable DATE OF EXAM: 03/02/2023 COMPARISON: 02/07/2023 HISTORY: SOB, Follow Up FINDINGS: Endotracheal tube is appropriately placed. NG tube is seen coursing into the stomach. Mifflin-Sebas gurjit ter, mediastinal drains and left-sided chest tube is appropriately placed. No evidence for pneumothor ax thorax. Left atrial clip seen. Aortic valvular prosthesis. Sternotomy wires mediastinal clips. Scattered linear pleural parenchymal densities. Stable appearance of the cardio-mediastinal structures at this time. IMPRESSION: 1. A separate chest as discussed. Clinical correlation and follow up until resolution is recommended.
[2023-03-02 14:26] LABS: Platelet Count 69 k/uL (150-450)
[2023-03-02 14:45] LABS: Glucose,Whole Blood 114 mg/dL (70-110)
[2023-03-02 14:47] LABS: ABG Base Excess -3.2 mmol/L; ABG HCO3 24 mmol/L (21-25); ABG PCO2 52 mmHg (35-45); ABG PH 7.27 (7.35-7.45); ABG PO2 >400 mmHg (83-108); ABG TCO2 25 mmol/L (19-24); Allen Test Performed? Yes
[2023-03-02 14:55] LABS: ALT 15 U/L (4-49); AST 36 U/L (17-59); African American GFR (CKD) >90 (>60 ml/min/1.73 sqM); Albumin 3.1 g/dL (3.5-5.0); Alkaline Phosphatase 81 U/L (38-126); Anion Gap 7 mmol/L; Blood Urea Nitrogen 20 mg/dL (9-20); Calcium 8.3 mg/dL (8.4-10.2); Carbon Dioxide 22 mmol/L (22-30); Chloride 111 mmol/L (98-107); Glucose 106 mg/dL (74-99); Magnesium 4.6 mg/dL (1.6-2.3); Non-African American GFR(CKD) 88 (>60 ml/min/1.73 sqM); Potassium 4.7 mmol/L (3.5-5.1); Sodium 140 mmol/L (137-145); Total Bilirubin 0.3 mg/dL (0.2-1.3)
[2023-03-02] MEDS ORDERED: MUPIROCIN 2% OINT 22 GM TUBE NASAL ONE (15:00)
--- NOTE | 2023-03-02 15:36 | P.CNPUL ---
History of Present Illness Consult date: 03/02/23 Requesting physician: Fernie Colon Reason for consult: other (Mechanical ventilator/critical care management) Chief complaint: Coronary artery disease, aortic stenosis, congenital bicuspid aortic valve History of present illness: This is a 62-year-old male patient known history of hypertension, hyperlipidemia and was found to have significant coronary artery disease, aortic stenosis and bicuspid aortic valve. He was brought in today electively for surgery. He did undergo aortic valve replacement with 27 mm Bill Inspra's bovine pericardial valve prosthesis, CABG 2 with a VENEGAS to the LAD and a left radial arterial graft to the intermediate coronary artery, ligation of left atrial appendage. He is seen in the immediate postoperative phase in the intensive care unit. He is intubated on mechanical ventilator with current settings of assist control mode of 8 at a rate of 18, tidal out of 500, FiO2 100% and a PEEP of 5. Initial blood gases reveal a P O2 greater than 400, pCO2 52 and a pH of 7.27. His FiO2 was decreased to 50% and the respiratory rate was increased to 24. He is currently on a nitroglycerin drip at 5 mcg/m. Propofol at 30 mcg/kg/m. Lactated Ringer's at 50 MLS per hour. He does have a mediastinal and left pleural chest tubes in place. Current cardiac output 8.5. Cardiac index 4.2. The pressures 33/20. Central venous pressure 13. Blood pressure 100/43. White count 8.7. Hemoglobin 10.3. Platelets 69,000. Sodium 140. Potassium 4.7. Bicarb 22. BUN 20. Creatinine 0.94. Glucose 88. Chest x-ray reveals appropriately place undergo tracheal tube. NG tube coursing to his stomach. Erie-Sebas catheter, mediastinal drains and left chest tubes appropriately place. No evidence of pneumothorax. Left atrial clip seen. Aortic valvular prosth esis seen. Sternal wires mediastinal clips. Review of Systems ROS unobtainable: due to endotracheal tube Past Medical History Past Medical History: Coronary Artery Disease (CAD), Chest Pain / Angina, COPD, GERD/Reflux, Hyperlipidemia, Hypertension, Myocardial Infarction (ME), Musculoskeletal Disorder Additional Past Medical History / Comment(s): HERNIATED DISCS, NOSEBLEEDS in the past, chronic SEVERE HEADACHES, C/O ITCHING ON HANDS AND FEET, frequent abd. pain years ago, but nothing currently, resolving congestion, cough, cold symptoms, mostly gone now, recent amd to [facility] for chest pain, recent issues w/frequent heartburn Last Myocardial Infarction Date:: 2022 History of Any Multi-Drug Resistant Organisms: None Reported Past Surgical History: Heart Catheterization With Stent, Hernia Repair, Orthopedic Surgery, Tonsillectomy Additional Past Surgical History / Comment(s): TONSILS A CHILD, BILATERAL KNEE ARTHROSCOPY, ORIF right FOOT, hernia repair as a child Past Anesthesia/Blood Transfusion Reactions: No Reported Reaction Date of Last Stent Placement:: 02-09-23 Smoking Status: Current every day smoker - Past Family History Mother Family Medical History: Cancer, Coronary Artery Disease (CAD), Diabetes Mellitus Additional Family Medical History / Comment(s): PANCREATIC CA, HX OF HEART PROBLEMS- TRIPLE BYPASS SURGERY, STENTS Father Family Medical History: Cancer, Coronary Artery Disease (CAD), Diabetes Mellitus Additional Family Medical History / Comment(s): LUNG CA, HX OF HEART PROBLEMS Brother(s) Family Medical History: Coronary Artery Disease (CAD) Additional Family Medical History / Comment(s): 2 brothers with CAD, both having had CABG Medications and Allergies Home Medications Medication Instructions Recorded Confirmed Type Aspirin EC [Ecotrin Low Dose] 81 mg PO DAILY #30 tab 02/08/23 03/02/23 Rx Atorvastatin [Lipitor] 80 mg PO DAILY #30 tab 02/08/23 03/02/23 Rx Metoprolol Succinate (ER) [Toprol 25 mg PO DAILY #30 tab 02/08/23 03/02/23 Rx XL] Nitroglycerin Sl Tabs [Nitrostat] 0.4 mg SUBLINGUAL Q5M PRN #100 tab 02/10/23 1 05/03/22 Rx Ascorbic Acid [Vitamin C] 500 mg PO DAILY 02/25/23 03/02/23 History Dayquil 1 tab PO DIRECTED PRN 02/25/23 03/02/23 History Naproxen Sodium [Aleve] 220 mg PO DIRECTED PRN 02/25/23 03/02/23 History Allergies Allergy/AdvReac Type Severity Reaction Status Date / Time morphine Allergy Rash/Itchin Verified 03/02/23 06:52 g/Vomiting fentanyl AdvReac Nausea & Verified 03/02/23 06:52 Vomiting & Diarrhea Physical Exam Vitals: Vital Signs Temp Pulse Pulse Resp BP Pulse Ox FiO2 03/02/23 15:10 80 03/02/23 15:00 80 24 93 L 03/02/23 14:57 80 03/02/23 14:54 50 03/02/23 14:52 50 03/02/23 14:45 80 18 03/02/23 14:30 80 18 03/02/23 14:15 80 24 96 03/02/23 14:00 80 18 100 03/02/23 13:45 79 18 03/02/23 13:44 100 03/02/23 13:37 48 L 18 03/02/23 06:47 97.8 F 75 16 181/95 95 Intake and Output 03/02/23 03/02/23 03/02/23 06:59 14:59 22:59 Intake Total 154 1081.084 Output Total 818 140 Balance -664 941.084 Intake: IV 154 1050 Albumin Human 5% 250 ml 1000 In Empty Bag 1 bag @ 250 mls/hr IVPB Q1HR PRN Rx#: [id number] Lactated Ringers 1,000 ml 50 50 @ 50 mls/hr IV .Q20H [facility] Rx#:[id number] Intake, IV Titration 31.084 Amount propofoL 1,000 mg In 31.084 Empty Bag 1 bag @ Titrate IV .Q0M [facility] Rx#: [id number] Output: Chest Tube Drainage 88 65 Left Pleural 23 10 Mediastinal 65 55 Urine 230 75 Estimated Blood Loss 500 Other: Weight 81.8 kg ABP, PAP, CO, CI - Last 8 Hours Arterial Blood Pressure 100/43 Arterial Blood Pressure 98/42 Arterial Blood Pressure 89/40 Arterial Blood Pressure 105/47 Arterial Blood Pressure 96/46 Arterial Blood Pressure 98/42 Arterial Blood Pressure 102/32 Pulmonary Artery Pressure 33/20 Pulmonary Artery Pressure 32/19 Pulmonary Artery Pressure 33/18 Pulmonary Artery Pressure 33/19 Pulmonary Artery Pressure 34/18 Pulmonary Artery Pressure 33/16 Cardiac Output 9.3 Cardiac Output 8.5 Cardiac Output 7.6 Cardiac Index 4.6 Cardiac Index 4.2 Cardiac Index 3.8 GENERAL EXAM: Intubated, sedated 62-year-old male patient, in no apparent distress. HEAD: Normocephalic. EYES: Sluggish reaction of pupils, equal size. NOSE: Clear with pink turbinates. THROAT: Oral endogastric and nasogastric tubes in place. No erythema or exudates. NECK: Right IJ Erie-Sebas catheter in place. No masses, no JVD. CHEST: Sternal dressing dry and intact. Heart Hugger and place. Mediastinal and left chest tubes in place. LUNGS: Equal air entry with no crackles, wheeze, rhonchi or dullness. CVS: S1 and S2 normal with no audible murmur, regular rhythm. ABDOMEN: No hepatosplenomegaly, normal bowel sounds, no guarding or rigidity. SPINE: No scoliosis or deformity SKIN: No rashes CENTRAL NERVOUS SYSTEM: Sedated, tone is normal in all 4 extremities. EXTREMITIES: SCDs in place. Right radial arterial line in place. There is no peripheral edema. No clubbing, no cyanosis. Peripheral pulses are intact. Results - Laboratory Findings CBC and BMP: 03/02/23 13:43 03/02/23 13:43 ABG ABG pH 7.27 (7.35-7.45) L 03/02/23 14:40 ABG pCO2 52 mmHg (35-45) H 03/02/23 14:40 ABG pO2 >400 mmHg (83-108) H 03/02/23 14:40 ABG O2 Saturation 100.0 % (94-97) H 03/02/23 14:40 PT/INR, D-dimer PT 10.5 sec (10.0-12.5) 03/02/23 13:43 INR 1.0 (<1.2) 03/02/23 13:43 Abnormal lab findings: Abnormal Labs 02/25/23 02/25/23 02/25/23 11:03 11:03 11:03 RBC Hgb Hct Plt Count Lymphocytes # PT 9.5 L ABG pH ABG pCO2 ABG pO2 ABG HCO3 ABG Total CO2 ABG O2 Saturation ABG Hematocrit ABG Potassium ABG Ionized Calcium ABG Glucose ABG Lactic Acid Hemoglobin Chloride Glucose 68 L POC Glucose (mg/dL) Calcium Magnesium Total Bilirubin 0.2 L Total Protein Albumin Arterial Blood Potassium Arterial Blood Glucose Crossmatch See Detail 03/02/23 03/02/23 03/02/23 08:40 09:54 10:21 RBC Hgb Hct Plt Count Lymphocytes # PT ABG pH 7.32 L 7.27 L ABG pCO2 52 H 56 H ABG pO2 220 H 238 H >420 H ABG HCO3 27 H 26 H 26 H ABG Total CO2 29 H 27 H 28 H ABG O2 Saturation 99.8 H 99.8 H 100.0 H ABG Hematocrit 32 L 28 L ABG Potassium 4.7 H 4.7 H 4.7 H ABG Ionized Calcium 3.8 L ABG Glucose 118 H 122 H ABG Lactic Acid Hemoglobin 11.8 L 10.3 L 9.1 L Chloride Glucose POC Glucose (mg/dL) Calcium Magnesium Total Bilirubin Total Protein Albumin Arterial Blood Potassium 4.7 H 4.7 H 4.7 H Arterial Blood Glucose 118 H 122 H Crossmatch 03/02/23 03/02/23 03/02/23 11:55 11:55 13:42 RBC Hgb Hct Plt Count Lymphocytes # PT ABG pH 7.34 L ABG pCO2 ABG pO2 >420 H >420 H ABG HCO3 ABG Total CO2 ABG O2 Saturation 100.0 H 100.0 H ABG Hematocrit 29 L 29 L ABG Potassium 4.6 H 4.7 H ABG Ionized Calcium 4.3 L 4.3 L ABG Glucose 136 H 132 H ABG Lactic Acid 1.9 H 1.9 H Hemoglobin 9.5 L 9.3 L Chloride Glucose POC Glucose (mg/dL) 122 H Calcium Magnesium Total Bilirubin Total Protein Albumin Arterial Blood Potassium 4.6 H 4.7 H Arterial Blood Glucose 136 H 132 H Crossmatch 03/02/23 03/02/23 03/02/23 13:43 13:43 14:40 RBC 3.36 L Hgb 10.3 L D Hct 31.0 L Plt Count 69 L D Lymphocytes # 0.8 L PT ABG pH 7.27 L ABG pCO2 52 H ABG pO2 >400 H ABG HCO3 ABG Total CO2 25 H ABG O2 Saturation 100.0 H ABG Hematocrit ABG Potassium ABG Ionized Calcium ABG Glucose ABG Lactic Acid Hemoglobin Chloride 111 H Glucose 106 H POC Glucose (mg/dL) Calcium 8.3 L Magnesium 4.6 H Total Bilirubin Total Protein 5.0 L Albumin 3.1 L Arterial Blood Potassium Arterial Blood Glucose Crossmatch 03/02/23 14:43 RBC Hgb Hct Plt Count Lymphocytes # PT ABG pH ABG pCO2 ABG pO2 ABG HCO3 ABG Total CO2 ABG O2 Saturation ABG Hematocrit ABG Potassium ABG Ionized Calcium ABG Glucose ABG Lactic Acid Hemoglobin Chloride Glucose POC Glucose (mg/dL) 114 H Calcium Magnesium Total Bilirubin Total Protein Albumin Arterial Blood Potassium Arterial Blood Glucose Crossmatch - Diagnostic Findings Chest x-ray: image reviewed Assessment and Plan Assessment: Coronary artery disease, aortic stenosis, bicuspid aortic valve. Status post coronary bypass grafting 2 with a VENEGAS to the LAD, left radial artery to the intermediate coronary artery, ligation of left atrial appendage. Aortic valve replacement with a 27 mm Bill expressed bovine pericardial valve prosthesis. Post operative day #0. Hypoxemic respiratory failure, expected outcome of the above-mentioned surgery, intubated on mechanical ventilator Acute acute blood loss anemia, expected outcome of surgery, not requiring transfusions at this point. Hemoglobin 10.3. Platelets 69,000 Recent non-STEMI Chronic and ongoing tobacco dependence Chronic obstructive pulmonary disease, FEV1 value 75% of predicted Previous COVID-19 infection History of hypertension Hyperlipidemia Plan: The patient was seen and evaluated Chest x-ray, ABGs, labs and medications reviewed Ventilator adjustments made Continue bronchodilators We'll plan for early extubation protocol if tolerated Continue to monitor closely here in the intensive care unit We will continue to follow and make further recommendations based on his clinical status I have personally seen and examined the patient, performed the documentation and the assessment and plan as written. Number of minutes spent on the visit: 20.
[2023-03-02] MEDS: DEXMEDETOMIDINE/0.9% NACL(PMX) 400 MCG in EMPTY BAG 1 BAG IV SCH ×2 (15:55→21:11)
[2023-03-02] MEDS ORDERED: IPRATROPIUM-ALBUTEROL 3 ML NEB INHALATION SCH (16:00)
[2023-03-02 16:06] LABS: Glucose,Whole Blood 123 mg/dL (70-110)
[2023-03-02] MEDS: HEPARIN SODIUM,PORCINE 5,000 UNIT/ML 1 ML VIAL SQ SCH ×2 (16:12→23:26)
[2023-03-02 16:32] LABS: Basophils % (A) 0 %; Eosinophils % (A) 0 %; HCT 28.9 % (39.0-53.0); HGB 9.3 gm/dL (13.0-17.5); Hypochromasia Slight; Lymphocytes % (A) 14 %; MCHC 32.3 g/dL (31.0-37.0); MCV 92.8 fL (80.0-100.0); Mean Platelet Volume 8.3; Monocytes # (A) 0.4 k/uL (0-1.0); Monocytes % (A) 5 %; Neutrophils # (A) 5.5 k/uL (1.3-7.7); Neutrophils % (A) 77 %; RBC 3.11 m/uL (4.30-5.90); RDW 13.1 % (11.5-15.5); WBC 7.1 k/uL (3.8-10.6)
[2023-03-02 16:36] LABS: Platelet Count 68 k/uL (150-450)
[2023-03-02 16:59] LABS: Glucose,Whole Blood 132 mg/dL (70-110)
[2023-03-02 17:13] LABS: ABG Base Excess -2.6 mmol/L; ABG HCO3 24 mmol/L (21-25); ABG Oxygen Saturation 98.5 % (94-97); ABG PCO2 46 mmHg (35-45); ABG PH 7.32 (7.35-7.45); ABG PO2 110 mmHg (83-108); ABG TCO2 25 mmol/L (19-24); Allen Test Performed? Yes
[2023-03-02] MEDS: ACETAMINOPHEN IV (For NPO) 1,000 MG in EMPTY BAG 1 BAG IVPB SCH ×2 (17:17→23:01)
[2023-03-02 18:11] LABS: Glucose,Whole Blood 133 mg/dL (70-110)
[2023-03-02 18:55] LABS: Glucose,Whole Blood 126 mg/dL (70-110)
[2023-03-02 18:57] LABS: ABG Base Excess -0.7 mmol/L; ABG HCO3 25 mmol/L (21-25); ABG Oxygen Saturation 98.3 % (94-97); ABG PCO2 45 mmHg (35-45); ABG PH 7.35 (7.35-7.45); ABG PO2 94 mmHg (83-108); ABG TCO2 26 mmol/L (19-24); Allen Test Performed? Yes
[2023-03-02 19:58] LABS: Glucose,Whole Blood 125 mg/dL (70-110)
[2023-03-02] MEDS: IPRATROPIUM-ALBUTEROL 3 ML NEB INHALATION SCH (20:17)
[2023-03-02 20:33] LABS: Basophils % (A) 0 %; Eosinophils % (A) 1 %; HCT 27.9 % (39.0-53.0); HGB 9.3 gm/dL (13.0-17.5); Lymphocytes # (A) 0.5 k/uL (1.0-4.8); Lymphocytes % (A) 10 %; MCH 30.4 pg (25.0-35.0); MCHC 33.3 g/dL (31.0-37.0); MCV 91.4 fL (80.0-100.0); Mean Platelet Volume 9.6; Monocytes # (A) 0.3 k/uL (0-1.0); Monocytes % (A) 5 %; Neutrophils # (A) 4.1 k/uL (1.3-7.7); Neutrophils % (A) 83 %; RBC 3.05 m/uL (4.30-5.90); RDW 13.1 % (11.5-15.5)
[2023-03-02 20:56] LABS: Glucose,Whole Blood 134 mg/dL (70-110)
[2023-03-02 21:19] LABS: Platelet Count 65 k/uL (150-450)
[2023-03-02] MEDS ORDERED: KETOROLAC 15 MG/ML 1 ML VIAL IVP STA (21:22)
[2023-03-02 21:57] LABS: Glucose,Whole Blood 132 mg/dL (70-110)
--- NOTE | 2023-03-02 22:16 | CONS ---
CONSULTATION HISTORY OF PRESENT ILLNESS: This is a 62-year-old white male, in the ICU status post aortic valve repair. Postop day 1 aortic valve replacement, 2-vessel bypass grafting, FiO2 was 50%, PO2 400, was 8.5, the index was 4.2, central venous pressure 13, systolic blood pressure 101/43, which started to get extubated at this time. PAST MEDICAL HISTORY: Coronary artery disease, angina, chest pain, GERD, dyslipidemia, hypertension, myocardial infraction, and musculoskeletal disorder. PAST SURGICAL HISTORY: Heart catheterization, hernia repair, orthopedic surgery, and tonsillectomy. HOME MEDICINES: 1. Lipitor 80 daily. 2. Aspirin 81 daily. 3. Metoprolol succinate 25 daily. ALLERGIES: Morphine, fentanyl. PHYSICAL EXAMINATION: VITAL SIGNS: Temperature 97.8, respiratory rate 16 to 24, pulse 75, and blood pressure is 180s/90s to 170s/80s. CARDIOVASCULAR: S1, S2. LUNGS: Transmitted upper sounds. GI: Soft. HEMATOLOGY: Negative for Homans. PSYCH: Fair mood and affect. LABORATORY DATA: His hemoglobin is 10.3, white count is 8.7, platelets were to 109. ABG reviewed. ASSESSMENT: 1. Hypertension acceleration, status post aortic valve replacement, possibly give some hydralazine. 2. Hypoxemic respiratory failure, status post surgery. Try to wean him off that. 3. Nicotine addiction. 4. Prior STEMI. 5. Previous COVID-19 infection. 6. Hypertension. 7. Dyslipidemia. 8. COPD, breathing treatments. Prognosis guarded, home medications. MMODL / IJN: [id number] /
[2023-03-02 22:56] LABS: Glucose,Whole Blood 134 mg/dL (70-110)
[2023-03-02 23:55] LABS: Glucose,Whole Blood 109 mg/dL (70-110)
[2023-03-03 00:55] LABS: Glucose,Whole Blood 104 mg/dL (70-110)
[2023-03-03 01:55] LABS: Glucose,Whole Blood 117 mg/dL (70-110)
[2023-03-03 03:04] LABS: Glucose,Whole Blood 127 mg/dL (70-110)
[2023-03-03] MEDS ORDERED: HYDROmorphone 1 MG/ML 1 ML SYRINGE IVP STA ×2 (03:47→07:39)
[2023-03-03] MEDS ORDERED: METOPROLOL TARTRATE 5 MG/5 ML VIAL IVP STA (03:49)
[2023-03-03 04:09] LABS: Glucose,Whole Blood 133 mg/dL (70-110)
[2023-03-03 04:47] LABS: Basophils % (A) 0 %; Eosinophils % (A) 0 %; HCT 27.3 % (39.0-53.0); HGB 9.2 gm/dL (13.0-17.5); Lymphocytes # (A) 0.8 k/uL (1.0-4.8); Lymphocytes % (A) 12 %; MCH 30.4 pg (25.0-35.0); MCHC 33.6 g/dL (31.0-37.0); MCV 90.6 fL (80.0-100.0); Mean Platelet Volume 9.1; Monocytes # (A) 0.4 k/uL (0-1.0); Monocytes % (A) 5 %; Neutrophils # (A) 5.5 k/uL (1.3-7.7); Neutrophils % (A) 80 %; RBC 3.01 m/uL (4.30-5.90); RDW 13.2 % (11.5-15.5); WBC 6.9 k/uL (3.8-10.6)
[2023-03-03 04:56] LABS: Platelet Count 68 k/uL (150-450)
[2023-03-03 04:56] LABS: Glucose,Whole Blood 124 mg/dL (70-110)
[2023-03-03 05:33] LABS: Ionized Calcium 4.6 mg/dL (4.5-5.3)
[2023-03-03 05:49] LABS: ALT 16 U/L (4-49); AST 52 U/L (17-59); African American GFR (CKD) >90 (>60 ml/min/1.73 sqM); Albumin 3.4 g/dL (3.5-5.0); Alkaline Phosphatase 64 U/L (38-126); Anion Gap 8 mmol/L; Blood Urea Nitrogen 21 mg/dL (9-20); Carbon Dioxide 21 mmol/L (22-30); Chloride 108 mmol/L (98-107); Glucose 117 mg/dL (74-99); Magnesium 2.7 mg/dL (1.6-2.3); Non-African American GFR(CKD) >90 (>60 ml/min/1.73 sqM); Potassium 4.5 mmol/L (3.5-5.1); Sodium 137 mmol/L (137-145); Total Bilirubin 0.5 mg/dL (0.2-1.3); Total Protein 5.3 g/dL (6.3-8.2)
[2023-03-03 06:09] LABS: Glucose,Whole Blood 136 mg/dL (70-110)
[2023-03-03 06:58] LABS: Glucose,Whole Blood 138 mg/dL (70-110)
[2023-03-03 08:16] LABS: Glucose,Whole Blood 148 mg/dL (70-110)
[2023-03-03] MEDS: HEPARIN SODIUM,PORCINE 5,000 UNIT/ML 1 ML VIAL SQ SCH ×2 (08:25→15:27)
[2023-03-03] MEDS: ASCORBIC ACID 500 MG TAB PO SCH (08:25)
[2023-03-03] MEDS: ASPIRIN 81 MG PO SCH (08:26)
[2023-03-03] MEDS: ATORVASTATIN 80 MG TAB PO SCH (08:26)
[2023-03-03] MEDS: IPRATROPIUM-ALBUTEROL 3 ML NEB INHALATION SCH ×4 (08:26→21:08)
[2023-03-03 08:57] LABS: Glucose,Whole Blood 140 mg/dL (70-110)
[2023-03-03] MEDS ORDERED: MAGNESIUM HYDROXIDE 2,400 MG/30 ML CUP PO PRN (09:00)
[2023-03-03] MEDS ORDERED: METOPROLOL TARTRATE 25 MG TAB PO SCH ×2 (09:00→21:00)
[2023-03-03] MEDS ORDERED: PANTOPRAZOLE 40 MG/10 ML VIAL IVP SCH (09:00)
[2023-03-03] MEDS ORDERED: METOPROLOL TARTRATE 12.5 MG TAB PO SCH (09:00)
[2023-03-03] MEDS ORDERED: ASPIRIN 325 MG TAB PO SCH (09:00)
[2023-03-03] MEDS ORDERED: bisacodyL 10 MG SUPP RECTAL PRN (09:00)
[2023-03-03] MEDS ORDERED: CLOPIDOGREL 75 MG TAB PO SCH (09:00)
[2023-03-03] MEDS ORDERED: amLODIPine 2.5 MG TAB PO SCH (09:00)
--- NOTE | 2023-03-03 09:29 | XR ---
EXAMINATION TYPE: XR chest 1V portable DATE OF EXAM: 03/03/2023 Comparison: 03/02/2023 Clinical History: 62-year-old male Post Operative Cardiac Surgery Findings: Right IJ [place]-S[place] catheter, tip at the distal main pulmonary outflow tract. Left-sided chest tube in place. No appreciable pneumothorax. Median sternotomy wires and post-CABG clips. Mediastinal drain i n place. Interval extubation and removal of NG tube. Prosthetic aortic valve. Heart border line enlar ged. Interstitial density has increased. No sizable pleural effusion. Impression: 1. Borderline heart size and increasing interstitial density, possible developing mild pulmonary vasc ular congestion. 2. Left chest tube in place. No appreciable pneumothorax.
[2023-03-03 10:16] LABS: Glucose,Whole Blood 159 mg/dL (70-110)
[2023-03-03 11:02] LABS: Glucose,Whole Blood 157 mg/dL (70-110)
[2023-03-03 11:18] VITALS: BMI 25.2
[2023-03-03] MEDS: KETOROLAC 15 MG/ML 1 ML VIAL IVP SCH ×2 (11:33→17:33)
--- NOTE | 2023-03-03 11:42 | P.PN ---
Subjective Progress Note Date: 03/03/23 Principal diagnosis: Coronary artery disease, aortic stenosis with congenital bicuspid aortic valve. Previous medical history of coronary artery disease with myocardial infarction and previous PCI, hypertension, hyperlipidemia, COPD, current tobacco dependence, previous heavy EtOH use, previous covid infection, and family history of premature coronary artery disease POD #1 aortic valve replacement with 27 mm Bill Inspiris bovine pericardial valve prosthesis, coronary artery bypass graft 2 with left internal mammary artery to the left anterior descending artery and left radial artery graft to the intermediate coronary artery, ligation of the left atrial appendage with a 35 mm AtriCure clip, endoscopic harvesting of the left radial artery Postoperative acute blood loss anemia, thrombocytopenia, expected given hemodilution and cardiopulmonary bypass pump The patient was seen and examined this morning sitting up in a recliner in the intensive care unit in no acute distress. He was successfully extubated at 19:05 last night. Does complain of significant postsurgical pain, denies shortness of breath. Remains in sinus rhythm, hemodynamically stable. Chest x- ray, labs reviewed. Right internal jugular [place]/Cordis, right radial arterial line, mediastinal/left pleural chest tubes all remaining present. No other new concerns. Objective - Vital Signs Vital signs: Vital Signs Temp 100.6 F H 03/02/23 18:00 Pulse 80 03/03/23 11:00 Resp 28 H 03/03/23 11:00 BP 122/76 03/03/23 11:00 Pulse Ox 97 03/03/23 11:00 FiO2 40 03/02/23 18:17 Intake & Output 03/02/23 03/03/23 03/03/23 18:59 06:59 18:59 Intake Total 1156.197 5019.858 622.379 Output Total 1673 1485 300 Balance -64.465 -84.142 322.379 Weight 84.2 kg 84.2 kg Intake: IV 1554 1108 216 ACETAMINOPHEN IV (For NPO 100 100 ) 1,000 mg In Empty Bag 1 bag @ 400 mls/hr IVPB Q6HR ABEL Rx#:[id number] Albumin Human 5% 250 ml 1000 In Empty Bag 1 bag @ 250 mls/hr IVPB Q1HR PRN Rx#: [id number] CO/CI and Pressure Bags 308 46 Lactated Ringers 1,000 ml 250 650 170 @ 20 mls/hr IV .Q24H ABEL Rx#:[id number] ceFAZolin 2 gm In Sodium 100 50 Chloride 0.9% 50 ml @ 100 mls/hr IVPB Q8HR ABEL Rx# :[id number] Intake, IV Titration 54.535 92.858 6.379 Amount Dexmedetomidine/0.9% NaCl 13.805 85.855 (Pmx) 400 mcg In Empty Bag 1 bag @ Titrate IV . Q0M ABEL Rx#:[id number] Insulin Regular 100 unit 0.446 7.003 6.379 In Sodium Chloride 0.9% 100 ml @ Per Protocol IV .Q0M ABEL Rx#:[id number] propofoL 1,000 mg In 40.284 Empty Bag 1 bag @ Titrate IV .Q0M ABEL Rx#: [id number] Oral 200 400 Output: Chest Tube Drainage 473 755 150 Left Pleural 63 355 110 Mediastinal 410 400 40 Urine 700 730 150 Estimated Blood Loss 500 Other: Voiding Method Indwelling Catheter Indwelling Catheter Indwelling Catheter ABP, PAP, CO, CI - Last Documented Arterial Blood Pressure 141/63 Pulmonary Artery Pressure 23/9 Cardiac Output 6.3 Cardiac Index 3.1 - Exam CONSTITUTIONAL: Appears somewhat comfortable, cooperative, no acute distress RESPIRATORY: Lungs sounds diminished bilaterally. Respirations even, nonlabored. Currently on 3 L nasal cannula with oxygen saturation 94%. Able to achieve 500-750 mL on incentive spirometry. Strong cough. CARDIOVASCULAR: S1, S2 present. Regular rate and rhythm, sinus rhythm on telemetry. Sternum stable. Palpable peripheral pulses bilaterally. No edema present. No calf pain or tenderness noted. Heart hugger in place with patient demonstrating appropriate use. Antiembolism stockings, SCDs present. GASTROINTESTINAL: Abdomen soft, nontender, nondistended. Hypoactive bowel sounds present 4 quadrants. Tolerating clear liquids. Denies flatus GENITOURINARY: Quinn present draining clear, yellow urine. Output overnight 40-100 mL per hour INTEGUMENTARY: Skin is warm and dry with evidence of good perfusion. Anterior chest incision well approximated and covered with dry intact dressing. Left radial artery harvest site well approximated without redness or drainage. NEUROLOGIC: Cranial nerves II through XII intact MUSKULOSKELETAL: Able to move all extremities, strength equal bilaterally, gait normal PSYCHIATRIC: Alert and oriented to person place and time, appropriate affect, intact judgment and insight INVASIVE LINES AND TUBES: Mediastinal/left pleural chest tubes present and connected to wall suction, no air leaks present. Mediastinal tube with 200 mL serosanguineous drainage overnight, 850 mL and surgery. Left pleural chest tube with 260 mL serosanguineous drainage overnight, 500 mL since surgery. A/V epicardial pacemaker wires present, connected to generator, backup rate 50 bpm. Right internal jugular [place]/Cordis, right radial arterial line present. Last CO/CI 6.4/3.2, PA 32/9, CVP 3. - Allied health notes Allied health notes reviewed: nursing - Labs CBC & Chem 7: 03/03/23 04:25 03/03/23 04:25 Labs: Abnormal Lab Results - Last 24 Hours (Table) 02/25/23 03/02/23 03/02/23 Range/Units 11:03 08:40 09:54 RBC (4.30-5.90) m/uL Hgb (13.0-17.5) gm/dL Hct (39.0-53.0) % Plt Count (150-450) k/uL Lymphocytes # (1.0-4.8) k/uL ABG pH 7.32 L 7.27 L (7.35-7.45) ABG pCO2 52 H 56 H (35-45) mmHg ABG pO2 220 H 238 H (83-108) mmHg ABG HCO3 27 H 26 H (21-25) mmol/L ABG Total CO2 29 H 27 H (19-24) mmol/L ABG O2 Saturation 99.8 H 99.8 H (94-97) % ABG Hematocrit 32 L (34.0-46.0) % ABG Potassium 4.7 H 4.7 H (3.4-4.5) mmol/L ABG Ionized Calcium (4.5-5.3) mg/dL ABG Glucose 118 H (75-99) mg/dL ABG Lactic Acid (0.5-1.6) mmol/L Hemoglobin 11.8 L 10.3 L (13.0-17.5) gm/dL Chloride (98-107) mmol/L Carbon Dioxide (22-30) mmol/L BUN (9-20) mg/dL Glucose (74-99) mg/dL POC Glucose (mg/dL) (70-110) mg/dL Calcium (8.4-10.2) mg/dL Magnesium (1.6-2.3) mg/dL Total Protein (6.3-8.2) g/dL Albumin (3.5-5.0) g/dL Arterial Blood Potassium 4.7 H 4.7 H (3.4-4.5) mmol/L Arterial Blood Glucose 118 H (75-99) mg/dL Crossmatch See Detail 03/02/23 03/02/23 03/02/23 Range/Units 10:21 11:55 11:55 RBC (4.30-5.90) m/uL Hgb (13.0-17.5) gm/dL Hct (39.0-53.0) % Plt Count (150-450) k/uL Lymphocytes # (1.0-4.8) k/uL ABG pH 7.34 L (7.35-7.45) ABG pCO2 (35-45) mmHg ABG pO2 >420 H >420 H >420 H (83-108) mmHg ABG HCO3 26 H (21-25) mmol/L ABG Total CO2 28 H (19-24) mmol/L ABG O2 Saturation 100.0 H 100.0 H 100.0 H (94-97) % ABG Hematocrit 28 L 29 L 29 L (34.0-46.0) % ABG Potassium 4.7 H 4.6 H 4.7 H (3.4-4.5) mmol/L ABG Ionized Calcium 3.8 L 4.3 L 4.3 L (4.5-5.3) mg/dL ABG Glucose 122 H 136 H 132 H (75-99) mg/dL ABG Lactic Acid 1.9 H 1.9 H (0.5-1.6) mmol/L Hemoglobin 9.1 L 9.5 L 9.3 L (13.0-17.5) gm/dL Chloride (98-107) mmol/L Carbon Dioxide (22-30) mmol/L BUN (9-20) mg/dL Glucose (74-99) mg/dL POC Glucose (mg/dL) (70-110) mg/dL Calcium (8.4-10.2) mg/dL Magnesium (1.6-2.3) mg/dL Total Protein (6.3-8.2) g/dL Albumin (3.5-5.0) g/dL Arterial Blood Potassium 4.7 H 4.6 H 4.7 H (3.4-4.5) mmol/L Arterial Blood Glucose 122 H 136 H 132 H (75-99) mg/dL Crossmatch 03/02/23 03/02/23 03/02/23 Range/Units 13:42 13:43 13:43 RBC 3.36 L (4.30-5.90) m/uL Hgb 10.3 L D (13.0-17.5) gm/dL Hct 31.0 L (39.0-53.0) % Plt Count 69 L D (150-450) k/uL Lymphocytes # 0.8 L (1.0-4.8) k/uL ABG pH (7.35-7.45) ABG pCO2 (35-45) mmHg ABG pO2 (83-108) mmHg ABG HCO3 (21-25) mmol/L ABG Total CO2 (19-24) mmol/L ABG O2 Saturation (94-97) % ABG Hematocrit (34.0-46.0) % ABG Potassium (3.4-4.5) mmol/L ABG Ionized Calcium (4.5-5.3) mg/dL ABG Glucose (75-99) mg/dL ABG Lactic Acid (0.5-1.6) mmol/L Hemoglobin (13.0-17.5) gm/dL Chloride 111 H (98-107) mmol/L Carbon Dioxide (22-30) mmol/L BUN (9-20) mg/dL Glucose 106 H (74-99) mg/dL POC Glucose (mg/dL) 122 H (70-110) mg/dL Calcium 8.3 L (8.4-10.2) mg/dL Magnesium 4.6 H (1.6-2.3) mg/dL Total Protein 5.0 L (6.3-8.2) g/dL Albumin 3.1 L (3.5-5.0) g/dL Arterial Blood Potassium (3.4-4.5) mmol/L Arterial Blood Glucose (75-99) mg/dL Crossmatch 03/02/23 03/02/23 03/02/23 Range/Units 14:40 14:43 16:00 RBC 3.11 L (4.30-5.90) m/uL Hgb 9.3 L (13.0-17.5) gm/dL Hct 28.9 L (39.0-53.0) % Plt Count 68 L (150-450) k/uL Lymphocytes # (1.0-4.8) k/uL ABG pH 7.27 L (7.35-7.45) ABG pCO2 52 H (35-45) mmHg ABG pO2 >400 H (83-108) mmHg ABG HCO3 (21-25) mmol/L ABG Total CO2 25 H (19-24) mmol/L ABG O2 Saturation 100.0 H (94-97) % ABG Hematocrit (34.0-46.0) % ABG Potassium (3.4-4.5) mmol/L ABG Ionized Calcium (4.5-5.3) mg/dL ABG Glucose (75-99) mg/dL ABG Lactic Acid (0.5-1.6) mmol/L Hemoglobin (13.0-17.5) gm/dL Chloride (98-107) mmol/L Carbon Dioxide (22-30) mmol/L BUN (9-20) mg/dL Glucose (74-99) mg/dL POC Glucose (mg/dL) 114 H (70-110) mg/dL Calcium (8.4-10.2) mg/dL Magnesium (1.6-2.3) mg/dL Total Protein (6.3-8.2) g/dL Albumin (3.5-5.0) g/dL Arterial Blood Potassium (3.4-4.5) mmol/L Arterial Blood Glucose (75-99) mg/dL Crossmatch 03/02/23 03/02/23 03/02/23 Range/Units 16:02 16:57 17:08 RBC (4.30-5.90) m/uL Hgb (13.0-17.5) gm/dL Hct (39.0-53.0) % Plt Count (150-450) k/uL Lymphocytes # (1.0-4.8) k/uL ABG pH 7.32 L (7.35-7.45) ABG pCO2 46 H (35-45) mmHg ABG pO2 110 H (83-108) mmHg ABG HCO3 (21-25) mmol/L ABG Total CO2 25 H (19-24) mmol/L ABG O2 Saturation 98.5 H (94-97) % ABG Hematocrit (34.0-46.0) % ABG Potassium (3.4-4.5) mmol/L ABG Ionized Calcium (4.5-5.3) mg/dL ABG Glucose (75-99) mg/dL ABG Lactic Acid (0.5-1.6) mmol/L Hemoglobin (13.0-17.5) gm/dL Chloride (98-107) mmol/L Carbon Dioxide (22-30) mmol/L BUN (9-20) mg/dL Glucose (74-99) mg/dL POC Glucose (mg/dL) 123 H 132 H (70-110) mg/dL Calcium (8.4-10.2) mg/dL Magnesium (1.6-2.3) mg/dL Total Protein (6.3-8.2) g/dL Albumin (3.5-5.0) g/dL Arterial Blood Potassium (3.4-4.5) mmol/L Arterial Blood Glucose (75-99) mg/dL Crossmatch 03/02/23 03/02/23 03/02/23 Range/Units 18:08 18:53 18:54 RBC (4.30-5.90) m/uL Hgb (13.0-17.5) gm/dL Hct (39.0-53.0) % Plt Count (150-450) k/uL Lymphocytes # (1.0-4.8) k/uL ABG pH (7.35-7.45) ABG pCO2 (35-45) mmHg ABG pO2 (83-108) mmHg ABG HCO3 (21-25) mmol/L ABG Total CO2 26 H (19-24) mmol/L ABG O2 Saturation 98.3 H (94-97) % ABG Hematocrit (34.0-46.0) % ABG Potassium (3.4-4.5) mmol/L ABG Ionized Calcium (4.5-5.3) mg/dL ABG Glucose (75-99) mg/dL ABG Lactic Acid (0.5-1.6) mmol/L Hemoglobin (13.0-17.5) gm/dL Chloride (98-107) mmol/L Carbon Dioxide (22-30) mmol/L BUN (9-20) mg/dL Glucose (74-99) mg/dL POC Glucose (mg/dL) 133 H 126 H (70-110) mg/dL Calcium (8.4-10.2) mg/dL Magnesium (1.6-2.3) mg/dL Total Protein (6.3-8.2) g/dL Albumin (3.5-5.0) g/dL Arterial Blood Potassium (3.4-4.5) mmol/L Arterial Blood Glucose (75-99) mg/dL Crossmatch 03/02/23 03/02/23 03/02/23 Range/Units 19:56 20:20 20:55 RBC 3.05 L (4.30-5.90) m/uL Hgb 9.3 L (13.0-17.5) gm/dL Hct 27.9 L (39.0-53.0) % Plt Count 65 L (150-450) k/uL Lymphocytes # 0.5 L (1.0-4.8) k/uL ABG pH (7.35-7.45) ABG pCO2 (35-45) mmHg ABG pO2 (83-108) mmHg ABG HCO3 (21-25) mmol/L ABG Total CO2 (19-24) mmol/L ABG O2 Saturation (94-97) % ABG Hematocrit (34.0-46.0) % ABG Potassium (3.4-4.5) mmol/L ABG Ionized Calcium (4.5-5.3) mg/dL ABG Glucose (75-99) mg/dL ABG Lactic Acid (0.5-1.6) mmol/L Hemoglobin (13.0-17.5) gm/dL Chloride (98-107) mmol/L Carbon Dioxide (22-30) mmol/L BUN (9-20) mg/dL Glucose (74-99) mg/dL POC Glucose (mg/dL) 125 H 134 H (70-110) mg/dL Calcium (8.4-10.2) mg/dL Magnesium (1.6-2.3) mg/dL Total Protein (6.3-8.2) g/dL Albumin (3.5-5.0) g/dL Arterial Blood Potassium (3.4-4.5) mmol/L Arterial Blood Glucose (75-99) mg/dL Crossmatch 03/02/23 03/02/23 03/03/23 Range/Units 21:56 22:54 01:53 RBC (4.30-5.90) m/uL Hgb (13.0-17.5) gm/dL Hct (39.0-53.0) % Plt Count (150-450) k/uL Lymphocytes # (1.0-4.8) k/uL ABG pH (7.35-7.45) ABG pCO2 (35-45) mmHg ABG pO2 (83-108) mmHg ABG HCO3 (21-25) mmol/L ABG Total CO2 (19-24) mmol/L ABG O2 Saturation (94-97) % ABG Hematocrit (34.0-46.0) % ABG Potassium (3.4-4.5) mmol/L ABG Ionized Calcium (4.5-5.3) mg/dL ABG Glucose (75-99) mg/dL ABG Lactic Acid (0.5-1.6) mmol/L Hemoglobin (13.0-17.5) gm/dL Chloride (98-107) mmol/L Carbon Dioxide (22-30) mmol/L BUN (9-20) mg/dL Glucose (74-99) mg/dL POC Glucose (mg/dL) 132 H 134 H 117 H (70-110) mg/dL Calcium (8.4-10.2) mg/dL Magnesium (1.6-2.3) mg/dL Total Protein (6.3-8.2) g/dL Albumin (3.5-5.0) g/dL Arterial Blood Potassium (3.4-4.5) mmol/L Arterial Blood Glucose (75-99) mg/dL Crossmatch 03/03/23 03/03/23 03/03/23 Range/Units 03:02 04:08 04:25 RBC 3.01 L (4.30-5.90) m/uL Hgb 9.2 L (13.0-17.5) gm/dL Hct 27.3 L (39.0-53.0) % Plt Count 68 L (150-450) k/uL Lymphocytes # 0.8 L (1.0-4.8) k/uL ABG pH (7.35-7.45) ABG pCO2 (35-45) mmHg ABG pO2 (83-108) mmHg ABG HCO3 (21-25) mmol/L ABG Total CO2 (19-24) mmol/L ABG O2 Saturation (94-97) % ABG Hematocrit (34.0-46.0) % ABG Potassium (3.4-4.5) mmol/L ABG Ionized Calcium (4.5-5.3) mg/dL ABG Glucose (75-99) mg/dL ABG Lactic Acid (0.5-1.6) mmol/L Hemoglobin (13.0-17.5) gm/dL Chloride (98-107) mmol/L Carbon Dioxide (22-30) mmol/L BUN (9-20) mg/dL Glucose (74-99) mg/dL POC Glucose (mg/dL) 127 H 133 H (70-110) mg/dL Calcium (8.4-10.2) mg/dL Magnesium (1.6-2.3) mg/dL Total Protein (6.3-8.2) g/dL Albumin (3.5-5.0) g/dL Arterial Blood Potassium (3.4-4.5) mmol/L Arterial Blood Glucose (75-99) mg/dL Crossmatch 03/03/23 03/03/23 03/03/23 Range/Units 04:25 04:55 06:07 RBC (4.30-5.90) m/uL Hgb (13.0-17.5) gm/dL Hct (39.0-53.0) % Plt Count (150-450) k/uL Lymphocytes # (1.0-4.8) k/uL ABG pH (7.35-7.45) ABG pCO2 (35-45) mmHg ABG pO2 (83-108) mmHg ABG HCO3 (21-25) mmol/L ABG Total CO2 (19-24) mmol/L ABG O2 Saturation (94-97) % ABG Hematocrit (34.0-46.0) % ABG Potassium (3.4-4.5) mmol/L ABG Ionized Calcium (4.5-5.3) mg/dL ABG Glucose (75-99) mg/dL ABG Lactic Acid (0.5-1.6) mmol/L Hemoglobin (13.0-17.5) gm/dL Chloride 108 H (98-107) mmol/L Carbon Dioxide 21 L (22-30) mmol/L BUN 21 H (9-20) mg/dL Glucose 117 H (74-99) mg/dL POC Glucose (mg/dL) 124 H 136 H (70-110) mg/dL Calcium 8.0 L (8.4-10.2) mg/dL Magnesium 2.7 H (1.6-2.3) mg/dL Total Protein 5.3 L (6.3-8.2) g/dL Albumin 3.4 L (3.5-5.0) g/dL Arterial Blood Potassium (3.4-4.5) mmol/L Arterial Blood Glucose (75-99) mg/dL Crossmatch 03/03/23 03/03/23 03/03/23 Range/Units 06:56 08:15 08:55 RBC (4.30-5.90) m/uL Hgb (13.0-17.5) gm/dL Hct (39.0-53.0) % Plt Count (150-450) k/uL Lymphocytes # (1.0-4.8) k/uL ABG pH (7.35-7.45) ABG pCO2 (35-45) mmHg ABG pO2 (83-108) mmHg ABG HCO3 (21-25) mmol/L ABG Total CO2 (19-24) mmol/L ABG O2 Saturation (94-97) % ABG Hematocrit (34.0-46.0) % ABG Potassium (3.4-4.5) mmol/L ABG Ionized Calcium (4.5-5.3) mg/dL ABG Glucose (75-99) mg/dL ABG Lactic Acid (0.5-1.6) mmol/L Hemoglobin (13.0-17.5) gm/dL Chloride (98-107) mmol/L Carbon Dioxide (22-30) mmol/L BUN (9-20) mg/dL Glucose (74-99) mg/dL POC Glucose (mg/dL) 138 H 148 H 140 H (70-110) mg/dL Calcium (8.4-10.2) mg/dL Magnesium (1.6-2.3) mg/dL Total Protein (6.3-8.2) g/dL Albumin (3.5-5.0) g/dL Arterial Blood Potassium (3.4-4.5) mmol/L Arterial Blood Glucose (75-99) mg/dL Crossmatch 03/03/23 03/03/23 Range/Units 10:14 11:00 RBC (4.30-5.90) m/uL Hgb (13.0-17.5) gm/dL Hct (39.0-53.0) % Plt Count (150-450) k/uL Lymphocytes # (1.0-4.8) k/uL ABG pH (7.35-7.45) ABG pCO2 (35-45) mmHg ABG pO2 (83-108) mmHg ABG HCO3 (21-25) mmol/L ABG Total CO2 (19-24) mmol/L ABG O2 Saturation (94-97) % ABG Hematocrit (34.0-46.0) % ABG Potassium (3.4-4.5) mmol/L ABG Ionized Calcium (4.5-5.3) mg/dL ABG Glucose (75-99) mg/dL ABG Lactic Acid (0.5-1.6) mmol/L Hemoglobin (13.0-17.5) gm/dL Chloride (98-107) mmol/L Carbon Dioxide (22-30) mmol/L BUN (9-20) mg/dL Glucose (74-99) mg/dL POC Glucose (mg/dL) 159 H 157 H (70-110) mg/dL Calcium (8.4-10.2) mg/dL Magnesium (1.6-2.3) mg/dL Total Protein (6.3-8.2) g/dL Albumin (3.5-5.0) g/dL Arterial Blood Potassium (3.4-4.5) mmol/L Arterial Blood Glucose (75-99) mg/dL Crossmatch - Imaging and Cardiology Chest x-ray: report reviewed, image reviewed Assessment and Plan Assessment: Coronary artery disease, with previous myocardial infarction and PCI, status post 2 vessel CABG Aortic stenosis with congenital bicuspid aortic valve, status post aortic valve replacement History of hypertension Hyperlipidemia COPD Current tobacco dependence Previous heavy EtOH use, cessation 25 years ago Previous covid infection Family history of premature coronary artery disease Postoperative acute blood loss anemia, thrombocytopenia, expected Plan: Continue to maximize medical therapy with aspirin, statin, beta jerald. Will increase beta jerald therapy as tolerated Will start low-dose calcium channel jerald for radial artery spasm prophylaxis Wean O2 as tolerated. Encourage incentive spirometry use 10 times every hour while awake. Bronchodilators per pulmonology Will monitor daily labs and x-rays, electrolyte replacement per protocol Increase activity, ambulate as tolerated. PT/OT/cardiac rehab consulted GI/DVT prophylaxis Insulin management per internal medicine. Patient should remain on insulin drip for 48 hours, then may transition to subcutaneous insulin Pain control with current medication regimen. Toradol added for better pain control, Dilaudid added for breakthrough pain only Discontinue [place]. Connect Cordis to continuous CVP monitoring Continue chest tubes for another 24 hours, monitor output Continue Quinn catheter for another 24 hours, continue to record strict accurate intake and output Daily weights Smoking cessation education and counseling provided More recommendations to follow
[2023-03-03 12:25] LABS: Glucose,Whole Blood 140 mg/dL (70-110)
[2023-03-03] MEDS ORDERED: HYDROcodone/APAP 5-325MG 1 EACH TAB PO PRN (12:30)
[2023-03-03 13:37] LABS: Glucose,Whole Blood 127 mg/dL (70-110)
[2023-03-03 14:17] LABS: Glucose,Whole Blood 148 mg/dL (70-110)
[2023-03-03 15:07] LABS: Glucose,Whole Blood 127 mg/dL (70-110)
[2023-03-03] MEDS: HYDROcodone/APAP 10-325MG 1 EACH TAB PO PRN ×2 (15:25→20:11)
[2023-03-03] MEDS: LACTATED RINGERS 1,000 ML IV SCH (15:26)
[2023-03-03] MEDS ORDERED: amLODIPine 2.5 MG TAB PO STA (15:44)
[2023-03-03 16:20] LABS: Glucose,Whole Blood 137 mg/dL (70-110)
[2023-03-03] MEDS: METOPROLOL TARTRATE 25 MG TAB PO SCH (16:32)
[2023-03-03 17:03] LABS: Glucose,Whole Blood 117 mg/dL (70-110)
[2023-03-03 18:18] LABS: Glucose,Whole Blood 128 mg/dL (70-110)
[2023-03-03 19:34] LABS: Glucose,Whole Blood 121 mg/dL (70-110)
[2023-03-03] MEDS: SENNOSIDES-DOCUSATE SODIUM 1 EACH TAB PO SCH (20:11)
[2023-03-03 20:18] LABS: Glucose,Whole Blood 122 mg/dL (70-110)
[2023-03-03 21:33] LABS: Glucose,Whole Blood 125 mg/dL (70-110)
--- NOTE | 2023-03-03 22:11 | CONS ---
CONSULTATION HISTORY OF PRESENT ILLNESS: Patricio Morris is a 62-year-old gentleman who underwent elective aortocoronary bypass surgery along with aortic valve replacement performed by Dr. Colon yesterday. This gentleman has been extubated, he is doing well, maintaining sinus rhythm. He is not on any pressors at this time other than an insulin drip. He underwent aortic valve replacement with a #27 Bill Inspiris Bovine pericardial valve prosthesis and bypass surgery with VENEGAS to LAD and a left radial graft to the ramus intermedius and ligation of left atrial appendage. The patient has been extubated. He is doing well, maintaining sinus rhythm, resting comfortably. PAST MEDICAL HISTORY: Remarkable for hypertension, hyperlipidemia, CAD. He had a cardiac catheterization performed by Dr. Simmons on February 09 and this study revealed 60% distal left main, 40% ostial LAD, 80% ostial circumflex with severe aortic stenosis. RCA was dominant and no more than 50% stenosis. PHYSICAL EXAMINATION: VITAL SIGNS: Blood pressure is 128/70, pulse rate is 80, sinus. HEENT: Unremarkable. Fundus was not examined by me. NECK: Supple. No JVD. HEART: S1, S2 heard normally, short systolic murmur at the base. LUNGS: Reveal bilateral fair air entry. ABDOMEN: Soft. EXTREMITIES: Lower extremities reveal diminished pulses. NEUROLOGIC: Central nervous system is normal. IMPRESSION: 1. Status post aortic valve replacement with a tissue valve and 2-vessel bypass. 2. Hypertension. 3. Hyperlipidemia. RECOMMENDATIONS: I agree with the current management. We will continue incentive spirometry, and pulmonary toilet and see how he does. The patient is making good progress. Thank you very much for the consult. MMODL / IJN: [id number] /
[2023-03-03 22:55] LABS: Glucose,Whole Blood 121 mg/dL (70-110)
[2023-03-03] MEDS: HYDROmorphone 1 MG/ML 1 ML SYRINGE IVP PRN (23:21)
[2023-03-04] MEDS: KETOROLAC 15 MG/ML 1 ML VIAL IVP SCH ×5 (00:25→23:16)
[2023-03-04] MEDS: METOPROLOL TARTRATE 25 MG TAB PO SCH ×2 (00:25→20:24)
[2023-03-04] MEDS: HEPARIN SODIUM,PORCINE 5,000 UNIT/ML 1 ML VIAL SQ SCH ×2 (00:26→08:04)
[2023-03-04 00:59] LABS: Glucose,Whole Blood 132 mg/dL (70-110)
[2023-03-04] MEDS: HYDROcodone/APAP 10-325MG 1 EACH TAB PO PRN ×3 (01:24→14:04)
[2023-03-04 03:03] LABS: Glucose,Whole Blood 89 mg/dL (70-110)
[2023-03-04] MEDS: HYDROmorphone 1 MG/ML 1 ML SYRINGE IVP PRN (03:36)
[2023-03-04 04:12] LABS: Glucose,Whole Blood 116 mg/dL (70-110)
[2023-03-04 04:21] LABS: Basophils % (A) 0 %; Eosinophils % (A) 0 %; HGB 8.7 gm/dL (13.0-17.5); Lymphocytes # (A) 0.9 k/uL (1.0-4.8); Lymphocytes % (A) 12 %; MCH 30.1 pg (25.0-35.0); MCHC 33.3 g/dL (31.0-37.0); MCV 90.4 fL (80.0-100.0); Mean Platelet Volume 10.9; Monocytes # (A) 0.4 k/uL (0-1.0); Monocytes % (A) 5 %; Neutrophils # (A) 5.9 k/uL (1.3-7.7); Neutrophils % (A) 80 %; RBC 2.88 m/uL (4.30-5.90); RDW 13.1 % (11.5-15.5); WBC 7.4 k/uL (3.8-10.6)
[2023-03-04 04:32] LABS: Ionized Calcium 4.7 mg/dL (4.5-5.3)
[2023-03-04 04:42] LABS: ALT 15 U/L (4-49); AST 52 U/L (17-59); African American GFR (CKD) >90 (>60 ml/min/1.73 sqM); Albumin 3.4 g/dL (3.5-5.0); Alkaline Phosphatase 72 U/L (38-126); Anion Gap 10 mmol/L; Blood Urea Nitrogen 27 mg/dL (9-20); Calcium 8.4 mg/dL (8.4-10.2); Carbon Dioxide 21 mmol/L (22-30); Chloride 105 mmol/L (98-107); Glucose 105 mg/dL (74-99); Non-African American GFR(CKD) >90 (>60 ml/min/1.73 sqM); Potassium 4.3 mmol/L (3.5-5.1); Sodium 136 mmol/L (137-145); Total Bilirubin 0.6 mg/dL (0.2-1.3); Total Protein 5.4 g/dL (6.3-8.2)
[2023-03-04 05:03] LABS: Platelet Count 58 k/uL (150-450)
[2023-03-04 05:20] LABS: Glucose,Whole Blood 129 mg/dL (70-110)
[2023-03-04 06:04] LABS: Glucose,Whole Blood 122 mg/dL (70-110)
[2023-03-04] MEDS: PANTOPRAZOLE 40 MG TABLET PO SCH (06:19)
[2023-03-04 07:04] LABS: Glucose,Whole Blood 115 mg/dL (70-110)
[2023-03-04] MEDS: amLODIPine 5 MG TAB PO SCH (08:08)
[2023-03-04] MEDS: ATORVASTATIN 80 MG TAB PO SCH (08:08)
[2023-03-04] MEDS: ASPIRIN 81 MG PO SCH (08:08)
[2023-03-04] MEDS: ASCORBIC ACID 500 MG TAB PO SCH (08:09)
[2023-03-04 08:16] LABS: Glucose,Whole Blood 111 mg/dL (70-110)
[2023-03-04] MEDS ORDERED: METOPROLOL TARTRATE 50 MG TAB PO SCH (09:00)
--- NOTE | 2023-03-04 09:11 | XR ---
EXAMINATION TYPE: XR chest 1V portable DATE OF EXAM: 03/04/2023 6:01 AM CLINICAL INDICATION:Male, 62 years old with history of Post Operative Cardiac Surgery; [facility] COMPARISON: Chest radiograph from one day prior. TECHNIQUE: XR chest 1V portable Frontal view of the chest. FINDINGS: Lungs/Pleura: There is no evidence of pleural effusion, focal consolidation, or pneumothorax. Pulmonary vascularity: Unremarkable. Heart/mediastinum: Cardiomediastinal silhouette is enlarged and stable. Post aortic valve repair carol nges. Musculoskeletal: No acute osseous pathology. Midline sternotomy wires are noted. Other findings: None Lines/Tubes: Drainage tubes with tips projecting over the mediastinum. Left thoracotomy tube is present without evidence of pneumothorax. There is a [place] sheath which remains in place. IMPRESSION: Stable postsurgical exam with removal of [place] scans catheter.
[2023-03-04] MEDS: IPRATROPIUM-ALBUTEROL 3 ML NEB INHALATION SCH ×4 (09:13→20:34)
[2023-03-04 10:16] LABS: Glucose,Whole Blood 121 mg/dL (70-110)
[2023-03-04 11:47] LABS: Glucose,Whole Blood 134 mg/dL (70-110)
--- NOTE | 2023-03-04 12:23 | P.PN ---
Subjective Progress Note Date: 03/04/23 This is a 62-year-old male patient known history of hypertension, hyperlipidemia and was found to have significant coronary artery disease, aortic stenosis and bicuspid aortic valve. He was brought in today electively for surgery. He did undergo aortic valve replacement with 27 mm Bill Inspra's bovine pericardial valve prosthesis, CABG 2 with a VENEGAS to the LAD and a left radial arterial graft to the intermediate coronary artery, ligation of left atrial appendage. He is seen in the immediate postoperative phase in the intensive care unit. He is intubated on mechanical ventilator with current settings of assist control mode of 8 at a rate of 18, tidal out of 500, FiO2 100% and a PEEP of 5. Initial blood gases reveal a P O2 greater than 400, pCO2 52 and a pH of 7.27. His FiO2 was decreased to 50% and the respiratory rate was increased to 24. He is currently on a nitroglycerin drip at 5 mcg/m. Propofol at 30 mcg/kg/m. Lactated Ringer's at 50 MLS per hour. He does have a mediastinal and left pleural chest tubes in place. Current cardiac output 8.5. Cardiac index 4.2. The pressures 33/20. Central venous pressure 13. Blood pressure 100/43. White count 8.7. Hemoglobin 10.3. Platelets 69,000. Sodium 140. Potassium 4.7. Bicarb 22. BUN 20. Creatinine 0.94. Glucose 88. Chest x-ray reveals appropriately place undergo tracheal tube. NG tube coursing to his stomach. S wan-Sebas catheter, mediastinal drains and left chest tubes appropriately place. No evidence of pneumothorax. Left atrial clip seen. Aortic valvular prosthesis seen. Sternal wires mediastinal clips. The patient is seen today 03/03/2023 in follow-up in the intensive care unit. Postoperative day #1. He is currently resting comfortably in bed. Awake and alert in no acute distress. Maintaining O2 saturations in the 90s on liters per minute per nasal cannula. She's been afebrile. Hemodynamically stable. PA pressure 28/11. CVP 4. X-ray reveals borderline heart size and increasing interstitial density possibly developing mild pulmonary venous congestion. No appreciable pneumothorax. 6.9. Hemoglobin 9.2. Platelets 68,000. Sodium 137. Potassium 4.5. Bicarb 21. BUN 21. Creatinine 0.75. Glucose 117. He remains on bronchodilators. Working well with the incentive spirometer. The internal jugular Caroline-Sebas catheter in place, right radial arterial line in place, mediastinal and left pleural chest tubes remain in place. Objective - Vital Signs Vital signs: Vital Signs Temp 97.6 F 03/04/23 08:00 Pulse 86 03/04/23 11:00 Resp 25 H 03/04/23 11:00 BP 132/100 03/04/23 11:00 Pulse Ox 94 L 03/04/23 11:00 FiO2 40 03/02/23 18:17 Intake & Output 03/03/23 03/04/23 03/04/23 18:59 06:59 18:59 Intake Total 1018.157 780.937 117.535 Output Total 665 430 265 Balance 353.157 350.937 -147.465 Weight 84.2 kg 84.9 kg Intake: IV 398 312 114 CO/CI and Pressure Bags 88 72 24 Lactated Ringers 1,000 ml 310 240 90 @ 20 mls/hr IV .Q24H ABEL Rx#:[id number] Intake, IV Titration 20.157 18.937 3.535 Amount Insulin Regular 100 unit 20.157 18.937 3.535 In Sodium Chloride 0.9% 100 ml @ Per Protocol IV .Q0M ABEL Rx#:[id number] Oral 600 450 Output: Chest Tube Drainage 230 40 90 Left Pleural 150 10 70 Mediastinal 80 30 20 Urine 435 390 175 Other: Voiding Method Indwelling Catheter Indwelling Catheter Indwelling Catheter ABP, PAP, CO, CI - Last Documented Arterial Blood Pressure 134/76 Pulmonary Artery Pressure 28/11 Cardiac Output 6.3 Cardiac Index 3.1 - Exam GENERAL EXAM: Alert, pleasant 62-year-old male, resting in bed, on 2 L nasal cannula, fairly comfortable in no apparent distress. HEAD: Normocephalic. EYES: Normal reaction of pupils, equal size. NOSE: Clear with pink turbinates. THROAT: No erythema or exudates. NECK: Right IJ Caroline-Sebas catheter in place. No masses, no JVD. CHEST: Sternal dressing dry and intact. Heart hugger in place. Mediastinal left chest tubes in place. Pacer wires in place. LUNGS: Equal air entry with no crackles, wheeze, rhonchi or dullness. CVS: S1 and S2 normal with no audible murmur, regular rhythm. ABDOMEN: No hepatosplenomegaly, normal bowel sounds, no guarding or rigidity. SPINE: No scoliosis or deformity SKIN: No rashes CENTRAL NERVOUS SYSTEM: No focal deficits, tone is normal in all 4 extremities. EXTREMITIES: Right radial arterial line in place. There is no peripheral edema. No clubbing, no cyanosis. Peripheral pulses are intact. - Labs CBC & Chem 7: 03/04/23 04:11 03/04/23 04:11 Labs: Abnormal Lab Results - Last 24 Hours (Table) 03/03/23 03/03/23 03/03/23 Range/Units : 13:25 14:16 RBC (4.30-5.90) m/uL Hgb (13.0-17.5) gm/dL Hct (39.0-53.0) % Plt Count (150-450) k/uL Lymphocytes # (1.0-4.8) k/uL Sodium (137-145) mmol/L Carbon Dioxide (22-30) mmol/L BUN (9-20) mg/dL Glucose (74-99) mg/dL POC Glucose (mg/dL) 140 H 127 H 148 H (70-110) mg/dL Total Protein (6.3-8.2) g/dL Albumin (3.5-5.0) g/dL 03/03/23 03/03/23 03/03/23 Range/Units 15:05 16:19 17:01 RBC (4.30-5.90) m/uL Hgb (13.0-17.5) gm/dL Hct (39.0-53.0) % Plt Count (150-450) k/uL Lymphocytes # (1.0-4.8) k/uL Sodium (137-145) mmol/L Carbon Dioxide (22-30) mmol/L BUN (9-20) mg/dL Glucose (74-99) mg/dL POC Glucose (mg/dL) 127 H 137 H 117 H (70-110) mg/dL Total Protein (6.3-8.2) g/dL Albumin (3.5-5.0) g/dL 03/03/23 03/03/23 03/03/23 Range/Units 18:17 19:32 20:16 RBC (4.30-5.90) m/uL Hgb (13.0-17.5) gm/dL Hct (39.0-53.0) % Plt Count (150-450) k/uL Lymphocytes # (1.0-4.8) k/uL Sodium (137-145) mmol/L Carbon Dioxide (22-30) mmol/L BUN (9-20) mg/dL Glucose (74-99) mg/dL POC Glucose (mg/dL) 128 H 121 H 122 H (70-110) mg/dL Total Protein (6.3-8.2) g/dL Albumin (3.5-5.0) g/dL 03/03/23 03/03/23 03/04/23 Range/Units 21:30 22:53 00:57 RBC (4.30-5.90) m/uL Hgb (13.0-17.5) gm/dL Hct (39.0-53.0) % Plt Count (150-450) k/uL Lymphocytes # (1.0-4.8) k/uL Sodium (137-145) mmol/L Carbon Dioxide (22-30) mmol/L BUN (9-20) mg/dL Glucose (74-99) mg/dL POC Glucose (mg/dL) 125 H 121 H 132 H (70-110) mg/dL Total Protein (6.3-8.2) g/dL Albumin (3.5-5.0) g/dL 03/04/23 03/04/23 03/04/23 Range/Units 04:10 04:11 04:11 RBC 2.88 L (4.30-5.90) m/uL Hgb 8.7 L (13.0-17.5) gm/dL Hct 26.0 L (39.0-53.0) % Plt Count 58 L (150-450) k/uL Lymphocytes # 0.9 L (1.0-4.8) k/uL Sodium 136 L (137-145) mmol/L Carbon Dioxide 21 L (22-30) mmol/L BUN 27 H (9-20) mg/dL Glucose 105 H (74-99) mg/dL POC Glucose (mg/dL) 116 H (70-110) mg/dL Total Protein 5.4 L (6.3-8.2) g/dL Albumin 3.4 L (3.5-5.0) g/dL 03/04/23 03/04/23 03/04/23 Range/Units 05:18 06:03 07:02 RBC (4.30-5.90) m/uL Hgb (13.0-17.5) gm/dL Hct (39.0-53.0) % Plt Count (150-450) k/uL Lymphocytes # (1.0-4.8) k/uL Sodium (137-145) mmol/L Carbon Dioxide (22-30) mmol/L BUN (9-20) mg/dL Glucose (74-99) mg/dL POC Glucose (mg/dL) 129 H 122 H 115 H (70-110) mg/dL Total Protein (6.3-8.2) g/dL Albumin (3.5-5.0) g/dL 03/04/23 03/04/23 03/04/23 Range/Units 08:15 10:15 11:45 RBC (4.30-5.90) m/uL Hgb (13.0-17.5) gm/dL Hct (39.0-53.0) % Plt Count (150-450) k/uL Lymphocytes # (1.0-4.8) k/uL Sodium (137-145) mmol/L Carbon Dioxide (22-30) mmol/L BUN (9-20) mg/dL Glucose (74-99) mg/dL POC Glucose (mg/dL) 111 H 121 H 134 H (70-110) mg/dL Total Protein (6.3-8.2) g/dL Albumin (3.5-5.0) g/dL Assessment and Plan Assessment: Coronary artery disease, aortic stenosis, bicuspid aortic valve. Status post coronary bypass grafting 2 with a VENEGAS to the LAD, left radial artery to the intermediate coronary artery, ligation of left atrial appendage. Aortic valve replacement with a 27 mm Bill expressed bovine pericardial valve prosthesis. Post operative day #1. Hypoxemic respiratory failure, expected outcome of the above-mentioned surgery, intubated on mechanical ventilator Acute acute blood loss anemia, expected outcome of surgery, not requiring transfusions at this point. Hemoglobin 9.2. Platelets 68,000 Recent non-STEMI Chronic and ongoing tobacco dependence Chronic obstructive pulmonary disease, FEV1 value 75% of predicted Previous COVID-19 infection History of hypertension Hyperlipidemia Plan: The patient was seen and evaluated Chest x-ray, labs and medications reviewed Continue bronchodilators Continue to work with the incentive spirometer Titrate down the FiO2 as tolerated Creases activity as tolerated We will continue to follow I have personally seen and examined the patient, performed the documentation and the assessment and plan as written. Number of minutes spent on the visit: 10.
--- NOTE | 2023-03-04 12:28 | P.PN ---
Subjective Progress Note Date: 03/04/23 This is a 62-year-old male patient known history of hypertension, hyperlipidemia and was found to have significant coronary artery disease, aortic stenosis and bicuspid aortic valve. He was brought in today electively for surgery. He did undergo aortic valve replacement with 27 mm Bill Inspra's bovine pericardial valve prosthesis, CABG 2 with a VENEGAS to the LAD and a left radial arterial graft to the intermediate coronary artery, ligation of left atrial appendage. He is seen in the immediate postoperative phase in the intensive care unit. He is intubated on mechanical ventilator with current settings of assist control mode of 8 at a rate of 18, tidal out of 500, FiO2 100% and a PEEP of 5. Initial blood gases reveal a P O2 greater than 400, pCO2 52 and a pH of 7.27. His FiO2 was decreased to 50% and the respiratory rate was increased to 24. He is currently on a nitroglycerin drip at 5 mcg/m. Propofol at 30 mcg/kg/m. Lactated Ringer's at 50 MLS per hour. He does have a mediastinal and left pleural chest tubes in place. Current cardiac output 8.5. Cardiac index 4.2. The pressures 33/20. Central venous pressure 13. Blood pressure 100/43. White count 8.7. Hemoglobin 10.3. Platelets 69,000. Sodium 140. Potassium 4.7. Bicarb 22. BUN 20. Creatinine 0.94. Glucose 88. Chest x-ray reveals appropriately place undergo tracheal tube. NG tube coursing to his stomach. S wan-Sebas catheter, mediastinal drains and left chest tubes appropriately place. No evidence of pneumothorax. Left atrial clip seen. Aortic valvular prosthesis seen. Sternal wires mediastinal clips. The patient is seen today 03/03/2023 in follow-up in the intensive care unit. Postoperative day #1. He is currently resting comfortably in bed. Awake and alert in no acute distress. Maintaining O2 saturations in the 90s on liters per minute per nasal cannula. She's been afebrile. Hemodynamically stable. PA pressure 28/11. CVP 4. X-ray reveals borderline heart size and increasing interstitial density possibly developing mild pulmonary venous congestion. No appreciable pneumothorax. 6.9. Hemoglobin 9.2. Platelets 68,000. Sodium 137. Potassium 4.5. Bicarb 21. BUN 21. Creatinine 0.75. Glucose 117. He remains on bronchodilators. Working well with the incentive spirometer. The internal jugular Nada-Sebas catheter in place, right radial arterial line in place, mediastinal and left pleural chest tubes remain in place. The patient is seen today summer in follow-up in the intensive care unit. Postoperative day #2. The patient is awake and alert in no acute dis tress. Maintaining good O2 saturations in the 90s on room air. He has lactated Ringer's at KVO. The plan is to remove the chest tubes and pacer wires today. Right IJ cordis remains in place. Quinn catheter in place. Plan is to remove arterial line today. White count 7.4. Hemoglobin 8.7. Platelets 58,000. Sodium 136. Potassium 4.3. Bicarb 21. BUN 27. Creatinine 0.72. Glucose 105. He continues to work well with the incentive spirometer. Continues on bronchodilators. Objective - Vital Signs Vital signs: Vital Signs Temp 97.6 F 03/04/23 08:00 Pulse 86 03/04/23 11:00 Resp 25 H 03/04/23 11:00 BP 132/100 03/04/23 11:00 Pulse Ox 94 L 03/04/23 11:00 FiO2 40 03/02/23 18:17 Intake & Output 03/03/23 03/04/23 03/04/23 18:59 06:59 18:59 Intake Total 1018.157 780.937 117.535 Output Total 665 430 265 Balance 353.157 350.937 -147.465 Weight 84.2 kg 84.9 kg Intake: IV 398 312 114 CO/CI and Pressure Bags 88 72 24 Lactated Ringers 1,000 ml 310 240 90 @ 20 mls/hr IV .Q24H ABEL Rx#:[id number] Intake, IV Titration 20.157 18.937 3.535 Amount Insulin Regular 100 unit 20.157 18.937 3.535 In Sodium Chloride 0.9% 100 ml @ Per Protocol IV .Q0M ABEL Rx#:[id number] Oral 600 450 Output: Chest Tube Drainage 230 40 90 Left Pleural 150 10 70 Mediastinal 80 30 20 Urine 435 390 175 Other: Voiding Method Indwelling Catheter Indwelling Catheter Indwelling Catheter ABP, PAP, CO, CI - Last Documented Arterial Blood Pressure 134/76 Pulmonary Artery Pressure 28/11 Cardiac Output 6.3 Cardiac Index 3.1 - Exam GENERAL EXAM: Alert, pleasant 62-year-old male, resting in bed, on room air, comfortable in no apparent distress. HEAD: Normocephalic. EYES: Normal reaction of pupils, equal size. NOSE: Clear with pink turbinates. THROAT: No erythema or exudates. NECK: Right IJ cordis catheter in place. No masses, no JVD. CHEST: Sternal dressing dry and intact. Heart hugger in place. LUNGS: Equal air entry with no crackles, wheeze, rhonchi or dullness. CVS: S1 and S2 normal with no audible murmur, regular rhythm. ABDOMEN: No hepatosplenomegaly, normal bowel sounds, no guarding or rigidity. SPINE: No scoliosis or deformity SKIN: No rashes CENTRAL NERVOUS SYSTEM: No focal deficits, tone is normal in all 4 extremities. EXTREMITIES: There is no peripheral edema. No clubbing, no cyanosis. Peripheral pulses are intact. - Labs CBC & Chem 7: 03/04/23 04:11 03/04/23 04:11 Labs: Abnormal Lab Results - Last 24 Hours (Table) 03/03/23 03/03/23 03/03/23 Range/Units 12: 13:25 14:16 RBC (4.30-5.90) m/uL Hgb (13.0-17.5) gm/dL Hct (39.0-53.0) % Plt Count (150-450) k/uL Lymphocytes # (1.0-4.8) k/uL Sodium (137-145) mmol/L Carbon Dioxide (22-30) mmol/L BUN (9-20) mg/dL Glucose (74-99) mg/dL POC Glucose (mg/dL) 140 H 127 H 148 H (70-110) mg/dL Total Protein (6.3-8.2) g/dL Albumin (3.5-5.0) g/dL 03/03/23 03/03/23 03/03/23 Range/Units 15:05 16:19 17:01 RBC (4.30-5.90) m/uL Hgb (13.0-17.5) gm/dL Hct (39.0-53.0) % Plt Count (150-450) k/uL Lymphocytes # (1.0-4.8) k/uL Sodium (137-145) mmol/L Carbon Dioxide (22-30) mmol/L BUN (9-20) mg/dL Glucose (74-99) mg/dL POC Glucose (mg/dL) 127 H 137 H 117 H (70-110) mg/dL Total Protein (6.3-8.2) g/dL Albumin (3.5-5.0) g/dL 03/03/23 03/03/23 03/03/23 Range/Units 18:17 19:32 20:16 RBC (4.30-5.90) m/uL Hgb (13.0-17.5) gm/dL Hct (39.0-53.0) % Plt Count (150-450) k/uL Lymphocytes # (1.0-4.8) k/uL Sodium (137-145) mmol/L Carbon Dioxide (22-30) mmol/L BUN (9-20) mg/dL Glucose (74-99) mg/dL POC Glucose (mg/dL) 128 H 121 H 122 H (70-110) mg/dL Total Protein (6.3-8.2) g/dL Albumin (3.5-5.0) g/dL 03/03/23 03/03/23 03/04/23 Range/Units 21:30 22:53 00:57 RBC (4.30-5.90) m/uL Hgb (13.0-17.5) gm/dL Hct (39.0-53.0) % Plt Count (150-450) k/uL Lymphocytes # (1.0-4.8) k/uL Sodium (137-145) mmol/L Carbon Dioxide (22-30) mmol/L BUN (9-20) mg/dL Glucose (74-99) mg/dL POC Glucose (mg/dL) 125 H 121 H 132 H (70-110) mg/dL Total Protein (6.3-8.2) g/dL Albumin (3.5-5.0) g/dL 03/04/23 03/04/23 03/04/23 Range/Units 04:10 04:11 04:11 RBC 2.88 L (4.30-5.90) m/uL Hgb 8.7 L (13.0-17.5) gm/dL Hct 26.0 L (39.0-53.0) % Plt Count 58 L (150-450) k/uL Lymphocytes # 0.9 L (1.0-4.8) k/uL Sodium 136 L (137-145) mmol/L Carbon Dioxide 21 L (22-30) mmol/L BUN 27 H (9-20) mg/dL Glucose 105 H (74-99) mg/dL POC Glucose (mg/dL) 116 H (70-110) mg/dL Total Protein 5.4 L (6.3-8.2) g/dL Albumin 3.4 L (3.5-5.0) g/dL 03/04/23 03/04/23 03/04/23 Range/Units 05:18 06:03 07:02 RBC (4.30-5.90) m/uL Hgb (13.0-17.5) gm/dL Hct (39.0-53.0) % Plt Count (150-450) k/uL Lymphocytes # (1.0-4.8) k/uL Sodium (137-145) mmol/L Carbon Dioxide (22-30) mmol/L BUN (9-20) mg/dL Glucose (74-99) mg/dL POC Glucose (mg/dL) 129 H 122 H 115 H (70-110) mg/dL Total Protein (6.3-8.2) g/dL Albumin (3.5-5.0) g/dL 03/04/23 03/04/23 03/04/23 Range/Units 08:15 10:15 11:45 RBC (4.30-5.90) m/uL Hgb (13.0-17.5) gm/dL Hct (39.0-53.0) % Plt Count (150-450) k/uL Lymphocytes # (1.0-4.8) k/uL Sodium (137-145) mmol/L Carbon Dioxide (22-30) mmol/L BUN (9-20) mg/dL Glucose (74-99) mg/dL POC Glucose (mg/dL) 111 H 121 H 134 H (70-110) mg/dL Total Protein (6.3-8.2) g/dL Albumin (3.5-5.0) g/dL Assessment and Plan Assessment: Coronary artery disease, aortic stenosis, bicuspid aortic valve. Status post coronary bypass grafting 2 with a VENEGAS to the LAD, left radial artery to the intermediate coronary artery, ligation of left atrial appendage. Aortic valve replacement with a 27 mm Bill expressed bovine pericardial valve prosthesis. Post operative day #2. Hypoxemic respiratory failure, expected outcome of the above-mentioned surgery, intubated on mechanical ventilator Acute acute blood loss anemia, expected outcome of surgery, not requiring transfusions at this point. Hemoglobin 9.2. Platelets 68,000 Recent non-STEMI Chronic and ongoing tobacco dependence Chronic obstructive pulmonary disease, FEV1 value 75% of predicted Previous COVID-19 infection History of hypertension Hyperlipidemia Plan: The patient was seen and evaluated Chest x-ray, labs and medications reviewed Continue to work with the incentive spirometer Continue bronchodilators Stable and on room air Increase his activity as tolerated We'll continue to follow I have personally seen and examined the patient, performed the documentation and the assessment and plan as written. Number of minutes spent on the visit: 10.
--- NOTE | 2023-03-04 14:25 | P.PN ---
Subjective Progress Note Date: 03/04/23 Principal diagnosis: Coronary artery disease, aortic stenosis with congenital bicuspid aortic valve. Previous medical history of coronary artery disease with myocardial infarction and previous PCI, hypertension, hyperlipidemia, COPD, current tobacco dependence, previous heavy EtOH use, previous covid infection, and family history of premature coronary artery disease POD #2 aortic valve replacement with 27 mm Bill Inspiris bovine pericardial valve prosthesis, coronary artery bypass graft 2 with left internal mammary artery to the left anterior descending artery and left radial artery graft to the intermediate coronary artery, ligation of the left atrial appendage with a 35 mm AtriCure clip, endoscopic harvesting of the left radial artery, intraoperative transesophageal echocardiogram performed by anesthesia. Postoperative acute blood loss anemia, thrombocytopenia, expected given hemodilution and cardiopulmonary bypass pump. The patient was seen and examined in follow-up today 03/04/2023 at his bedside in the intensive care unit. He is currently sitting up to the bedside chair, is awake, alert, oriented 3 and is in no acute apparent distress. He denies any complaints of shortness of breath at this time, although is complaining of some surgical type pain to his chest tube insertion sites and with taking deep breaths and coughing, currently rating his pain 6-7 out of 10 on the pain scale. Oxygen saturations are 92% on room air and he is achieving 500 mL on his incentive spirometry with encouragement. Bedside telemetry showing sinus tachycardia heart rate 101 BPM. He remains hemodynamically stable and is currently on no inotropic or pressor support. Right IJ cordis remains in place with continuous CVP monitoring, current CVP pressure 8 mmHg. Mediastinal left pleural chest tubes remain in place to low continuous wall suction -20 cm H2O. No air leak is present. Chest tubes are draining thin serosanguineous drainage with the left pleural chest tube draining thin serosanguineous drainage with 140 mL output in the last 24 hours, and his mediastinal chest tube draining 100 mL output in the last 24 hours. Laboratory and chest x-ray results reviewed. Atrial and ventricular epicardial pacemaker wires remain in place and are connected to bedside backup pacemaker generator on a VVI of 50 BPM. Objective - Vital Signs Vital signs: Vital Signs Temp 97.6 F 03/04/23 12:00 Pulse 92 03/04/23 13:00 Resp 24 03/04/23 13:00 BP 146/88 03/04/23 13:00 Pulse Ox 90 L 03/04/23 13:00 FiO2 40 03/02/23 18:17 Intake & Output 03/03/23 03/04/23 03/04/23 18:59 06:59 18:59 Intake Total 1018.157 780.937 137.535 Output Total 665 430 265 Balance 353.157 350.937 -127.465 Weight 84.2 kg 84.9 kg Intake: IV 398 312 134 CO/CI and Pressure Bags 88 72 24 Lactated Ringers 1,000 ml 310 240 110 @ 20 mls/hr IV .Q24H ABEL Rx#:[id number] Intake, IV Titration 20.157 18.937 3.535 Amount Insulin Regular 100 unit 20.157 18.937 3.535 In Sodium Chloride 0.9% 100 ml @ Per Protocol IV .Q0M ABEL Rx#:[id number] Oral 600 450 Output: Chest Tube Drainage 230 40 90 Left Pleural 150 10 70 Mediastinal 80 30 20 Urine 435 390 175 Other: Voiding Method Indwelling Catheter Indwelling Catheter Indwelling Catheter ABP, PAP, CO, CI - Last Documented Arterial Blood Pressure 134/76 Pulmonary Artery Pressure 28/11 Cardiac Output 6.3 Cardiac Index 3.1 - Exam CONSTITUTIONAL: Sitting up to the bedside chair in the intensive care unit, appears comfortable, cooperative, no apparent acute distress. HEENT: Neck is supple, no JVD, no lymphadenopathy. Right IJ Cordis in place and functioning. RESPIRATORY: Lungs sounds essentially clear throughout, diminished to his bilateral bases. Respirations are symmetrical and nonlabored. Currently on room air with oxygen saturations 92%. Able to achieve 500 mL on their incentive spirometry. Strong cough. CARDIOVASCULAR: Regular rhythm and rate. S1 and S2 present, negative for S3, gallop or murmur. Bedside telemetry showing normal sinus tachycardia heart rate 101 BPM. Sternum is stable. Palpable peripheral pulses bilaterally, trace edema to his bilateral lower extremities. No calf pain or tenderness noted. Heart hugger in place with patient demonstrating appropriate use. Knee-high PLACIDO hose and sequential compression devices in place to his bilateral lower extremities. GASTROINTESTINAL: Abdomen soft, nontender, nondistended. Active bowel sounds present 4 quadrants. Tolerating diet. Passing flatus. No guarding or ri gidity. GENITOURINARY: Quinn present draining clear, yellow urine. Urine output 290 mL in the last 8 hours. INTEGUMENTARY: Skin is warm and dry with no evidence of clubbing or cyanosis. Midline sternal incision clean dry and well approximated, covered with dry intact dressing. Left arm radial artery harvest sites clean, dry and approximated. No drainage or redness is present. NEUROLOGIC: Cranial nerves II through XII intact. No focal deficits. MUSKULOSKELETAL: Able to move all extremities, strength equal bilaterally, generalized weakness. PSYCHIATRIC: Alert and oriented to person place and time, appropriate affect, intact judgment and insight. INVASIVE LINES AND TUBES: Mediastinal/left pleural chest tubes present and connected to low continuous wall suction, no air leaks present. Mediastinal tube with 30 mL of thin serosanguineous drainage overnight, 100 mL output in the last 24 hours. Left pleural chest tube with 140 mL output in the last 24 hours. Atrial and ventricular epicardial pacemaker wires present, connected to generator, VVI backup rate 50 bpm. Right internal jugular Cordis, right radial arterial line present. Last CVP 8 mmHg. - Labs CBC & Chem 7: 03/04/23 04:11 03/04/23 04:11 Labs: Abnormal Lab Results - Last 24 Hours (Table) 03/03/23 03/03/23 03/03/23 Range/Units 14:16 15:05 16:19 RBC (4.30-5.90) m/uL Hgb (13.0-17.5) gm/dL Hct (39.0-53.0) % Plt Count (150-450) k/uL Lymphocytes # (1.0-4.8) k/uL Sodium (137-145) mmol/L Carbon Dioxide (22-30) mmol/L BUN (9-20) mg/dL Glucose (74-99) mg/dL POC Glucose (mg/dL) 148 H 127 H 137 H (70-110) mg/dL Total Protein (6.3-8.2) g/dL Albumin (3.5-5.0) g/dL 03/03/23 03/03/23 03/03/23 Range/Units 17:01 18:17 19:32 RBC (4.30-5.90) m/uL Hgb (13.0-17.5) gm/dL Hct (39.0-53.0) % Plt Count (150-450) k/uL Lymphocytes # (1.0-4.8) k/uL Sodium (137-145) mmol/L Carbon Dioxide (22-30) mmol/L BUN (9-20) mg/dL Glucose (74-99) mg/dL POC Glucose (mg/dL) 117 H 128 H 121 H (70-110) mg/dL Total Protein (6.3-8.2) g/dL Albumin (3.5-5.0) g/dL 03/03/23 03/03/23 03/03/23 Range/Units 20:16 21:30 22:53 RBC (4.30-5.90) m/uL Hgb (13.0-17.5) gm/dL Hct (39.0-53.0) % Plt Count (150-450) k/uL Lymphocytes # (1.0-4.8) k/uL Sodium (137-145) mmol/L Carbon Dioxide (22-30) mmol/L BUN (9-20) mg/dL Glucose (74-99) mg/dL POC Glucose (mg/dL) 122 H 125 H 121 H (70-110) mg/dL Total Protein (6.3-8.2) g/dL Albumin (3.5-5.0) g/dL 03/04/23 03/04/23 03/04/23 Range/Units 00:57 04:10 04:11 RBC 2.88 L (4.30-5.90) m/uL Hgb 8.7 L (13.0-17.5) gm/dL Hct 26.0 L (39.0-53.0) % Plt Count 58 L (150-450) k/uL Lymphocytes # 0.9 L (1.0-4.8) k/uL Sodium (137-145) mmol/L Carbon Dioxide (22-30) mmol/L BUN (9-20) mg/dL Glucose (74-99) mg/dL POC Glucose (mg/dL) 132 H 116 H (70-110) mg/dL Total Protein (6.3-8.2) g/dL Albumin (3.5-5.0) g/dL 03/04/23 03/04/23 03/04/23 Range/Units 04:11 05:18 06:03 RBC (4.30-5.90) m/uL Hgb (13.0-17.5) gm/dL Hct (39.0-53.0) % Plt Count (150-450) k/uL Lymphocytes # (1.0-4.8) k/uL Sodium 136 L (137-145) mmol/L Carbon Dioxide 21 L (22-30) mmol/L BUN 27 H (9-20) mg/dL Glucose 105 H (74-99) mg/dL POC Glucose (mg/dL) 129 H 122 H (70-110) mg/dL Total Protein 5.4 L (6.3-8.2) g/dL Albumin 3.4 L (3.5-5.0) g/dL 03/04/23 03/04/23 03/04/23 Range/Units 07:02 08:15 10:15 RBC (4.30-5.90) m/uL Hgb (13.0-17.5) gm/dL Hct (39.0-53.0) % Plt Count (150-450) k/uL Lymphocytes # (1.0-4.8) k/uL Sodium (137-145) mmol/L Carbon Dioxide (22-30) mmol/L BUN (9-20) mg/dL Glucose (74-99) mg/dL POC Glucose (mg/dL) 115 H 111 H 121 H (70-110) mg/dL Total Protein (6.3-8.2) g/dL Albumin (3.5-5.0) g/dL 03/04/23 Range/Units 11:45 RBC (4.30-5.90) m/uL Hgb (13.0-17.5) gm/dL Hct (39.0-53.0) % Plt Count (150-450) k/uL Lymphocytes # (1.0-4.8) k/uL Sodium (137-145) mmol/L Carbon Dioxide (22-30) mmol/L BUN (9-20) mg/dL Glucose (74-99) mg/dL POC Glucose (mg/dL) 134 H (70-110) mg/dL Total Protein (6.3-8.2) g/dL Albumin (3.5-5.0) g/dL - Imaging and Cardiology Chest x-ray: report reviewed, image reviewed Assessment and Plan Assessment: Coronary artery disease, with previous myocardial infarction and PCI, status post 2 vessel CABG Aortic stenosis with congenital bicuspid aortic valve, status post aortic valve replacement History of hypertension Hyperlipidemia COPD Current tobacco dependence Previous heavy EtOH use, cessation 25 years ago Previous covid infection Family history of premature coronary artery disease Postoperative acute blood loss anemia, thrombocytopenia, expected Plan: Continue to maximize medical therapy with aspirin, statin, beta jerald. Will increase metoprolol tartrate 50 mg by mouth twice a day with hold parameters. Continue amlodipine 5 mg by mouth daily for radial artery spasm prophylaxis. Encourage incentive spirometry use 10 times every hour while awake. Bronchodilators per pulmonology/critical care medicine. Will monitor daily labs and chest x-rays, electrolyte replacement per protocol. Increase activity, ambulate as tolerated. PT/OT/cardiac rehab following. GI/DVT prophylaxis. Insulin management per internal medicine. Patient should remain on insulin drip for 48 hours, then may transition to subcutaneous insulin. Pain control with current medication regimen. Removal right IJ Cordis and right radial arterial line. We will remove his mediastinal and left pleural chest tubes today. We will remove his atrial and ventricular epicardial pacemaker wires, bed rest for 1 hour post pacemaker wire removal. Remove Quinn catheter, bladder scan to 6 hours and when necessary postvoid r esidual. If greater than 300 mL of urine may straight cath. Daily weights. Reinforced the importance of Smoking cessation with the patient, education reinforced and and counseling provided. Transfer orders will be placed to the third floor cardiac stepdown unit. Discharge planning is in place, anticipate discharge home with home health care in the next 48 hours. More recommendations to follow based on patient's clinical course. Time with Patient: Greater than 30
[2023-03-04] MEDS: SYMBICORT 160-4.5 MCG INHALER INHALATION SCH ×2 (15:38→20:34)
[2023-03-04] MEDS: ACETAMINOPHEN TAB 500 MG TAB PO PRN ×2 (16:28→22:10)
[2023-03-04] MEDS: lisinopriL 5 MG TAB PO SCH (16:28)
[2023-03-04 16:53] LABS: Glucose,Whole Blood 124 mg/dL (70-110)
[2023-03-04] MEDS: INSULIN ASPART (NovoLOG) 100 UNIT/ML VIAL SQ SCH ×2 (16:58→20:10)
[2023-03-04 19:53] LABS: Glucose,Whole Blood 140 mg/dL (70-110)
[2023-03-04] MEDS ORDERED: SYMBICORT 160-4.5 MCG INHALER INHALATION SCH (20:00)
[2023-03-04] MEDS: SENNOSIDES-DOCUSATE SODIUM 1 EACH TAB PO SCH (20:24)
--- NOTE | 2023-03-05 00:32 | PN ---
PROGRESS NOTE SUBJECTIVE: Patricio Morris status post valve replacement, 2-vessel way bypass. He is doing better. He has multiple lines in him. He is trying to wean off his sugar diet, on Accu-Chek, is status post anemia atrial fibrillation, DuoNeb for COPD, he has hypertension medicines p.r.n. Prognosis guarded. He is sitting up in bed, talking appropriately. Says he is doing okay except he needs some of these lines going, he is feeling pain from the lines. Blood pressure was 120s to 150s over 70s to 80s, temp 97.5, status post open chest surgery for valve repair through a bypass. Continue his current treatment for COPD, hypertension, etc. Standard postop care. PROGNOSIS: Guarded. MMODL / IJN: [id number] /
[2023-03-05] MEDS: ACETAMINOPHEN TAB 500 MG TAB PO PRN (03:42)
[2023-03-05] MEDS: METOPROLOL TARTRATE 25 MG TAB PO SCH (04:01)
[2023-03-05 04:25] LABS: Basophils % (A) 0 %; Eosinophils % (A) 0 %; HGB 8.7 gm/dL (13.0-17.5); Lymphocytes # (A) 0.9 k/uL (1.0-4.8); Lymphocytes % (A) 13 %; MCHC 32.2 g/dL (31.0-37.0); MCV 90.2 fL (80.0-100.0); Mean Platelet Volume 9.2; Monocytes # (A) 0.4 k/uL (0-1.0); Monocytes % (A) 5 %; Neutrophils # (A) 5.3 k/uL (1.3-7.7); Neutrophils % (A) 78 %; RBC 2.99 m/uL (4.30-5.90); WBC 6.8 k/uL (3.8-10.6)
[2023-03-05 04:28] LABS: Platelet Count 72 k/uL (150-450)
[2023-03-05 05:26] LABS: ALT 23 U/L (4-49); AST 55 U/L (17-59); African American GFR (CKD) >90 (>60 ml/min/1.73 sqM); Albumin 3.3 g/dL (3.5-5.0); Alkaline Phosphatase 86 U/L (38-126); Anion Gap 8 mmol/L; Blood Urea Nitrogen 26 mg/dL (9-20); Calcium 8.3 mg/dL (8.4-10.2); Carbon Dioxide 24 mmol/L (22-30); Chloride 104 mmol/L (98-107); Glucose 118 mg/dL (74-99); Non-African American GFR(CKD) >90 (>60 ml/min/1.73 sqM); Potassium 4.1 mmol/L (3.5-5.1); Sodium 136 mmol/L (137-145); Total Bilirubin 0.5 mg/dL (0.2-1.3); Total Protein 5.4 g/dL (6.3-8.2)
[2023-03-05] MEDS: KETOROLAC 15 MG/ML 1 ML VIAL IVP SCH (06:10)
[2023-03-05 06:59] LABS: Glucose,Whole Blood 162 mg/dL (70-110)
[2023-03-05] MEDS: INSULIN ASPART (NovoLOG) 100 UNIT/ML VIAL SQ SCH (07:01)
[2023-03-05] MEDS: PANTOPRAZOLE 40 MG TABLET PO SCH (07:01)
[2023-03-05] MEDS ORDERED: METOPROLOL TARTRATE 25 MG TAB PO ONE (07:30)
--- NOTE | 2023-03-05 07:41 | XR ---
EXAMINATION TYPE: XR chest 2V DATE OF EXAM: 03/05/2023 5:56 AM CLINICAL INDICATION:Male, 62 years old with history of Postop cardiac surgery; [facility] COMPARISON: Chest radiograph from one day prior. TECHNIQUE: XR chest 2V Frontal and lateral views of the chest. FINDINGS: Lungs/Pleura: Trace blunting of the costophrenic angles. There is no evidence of focal consolidation, or pneumothorax. Pulmonary vascularity: Unremarkable. Heart/mediastinum: Cardiomediastinal silhouette is unremarkable. Left atrial appendage occlusion mayra ce is present. Musculoskeletal: No acute osseous pathology. Midline sternotomy wires are noted. Other findings: None Lines/Tubes: Removal left thoracotomy tube. Removal of mediastinal chest tube. IMPRESSION: Stable exam with removal of chest tubes. Trace bilateral pleural effusions.
--- NOTE | 2023-03-05 08:02 | PN ---
PROGRESS NOTE SUBJECTIVE: Mr. Morris had aortic valve replacement with tissue valve and bypass surgery, recovering nicely, hemodynamically stable, in sinus rhythm, doing well with spirometry. OBJECTIVE: HEART: S1 and S2 are heard normally, short systolic murmur. LUNGS: Fair air entry in the lung mcwilliams bilaterally. ABDOMEN: Unchanged. EXTREMITIES: Lower extremity exam unchanged. PLAN: To continue incentive spirometry, pulmonary toilet, and see how he does. MMODL / IJN: [id number] /
[2023-03-05] MEDS: IPRATROPIUM-ALBUTEROL 3 ML NEB INHALATION SCH ×2 (08:17→12:17)
[2023-03-05] MEDS: SYMBICORT 160-4.5 MCG INHALER INHALATION SCH (08:18)
[2023-03-05] MEDS: ATORVASTATIN 80 MG TAB PO SCH (08:40)
[2023-03-05] MEDS: amLODIPine 5 MG TAB PO SCH (08:40)
[2023-03-05] MEDS: ASCORBIC ACID 500 MG TAB PO SCH (08:40)
[2023-03-05] MEDS: lisinopriL 5 MG TAB PO SCH (08:40)
[2023-03-05] MEDS: ASPIRIN 81 MG PO SCH (08:40)
[2023-03-05 09:12] VITALS: TEMP 98.2
--- NOTE | 2023-03-05 10:42 | P.PN ---
Subjective Progress Note Date: 03/05/23 This is a 62-year-old male patient known history of hypertension, hyperlipidemia and was found to have significant coronary artery disease, aortic stenosis and bicuspid aortic valve. He was brought in today electively for surgery. He did undergo aortic valve replacement with 27 mm Bill Inspra's bovine pericardial valve prosthesis, CABG 2 with a VENEGAS to the LAD and a left radial arterial graft to the intermediate coronary artery, ligation of left atrial appendage. He is seen in the immediate postoperative phase in the intensive care unit. He is intubated on mechanical ventilator with current settings of assist control mode of 8 at a rate of 18, tidal out of 500, FiO2 100% and a PEEP of 5. Initial blood gases reveal a P O2 greater than 400, pCO2 52 and a pH of 7.27. His FiO2 was decreased to 50% and the respiratory rate was increased to 24. He is currently on a nitroglycerin drip at 5 mcg/m. Propofol at 30 mcg/kg/m. Lactated Ringer's at 50 MLS per hour. He does have a mediastinal and left pleural chest tubes in place. Current cardiac output 8.5. Cardiac index 4.2. The pressures 33/20. Central venous pressure 13. Blood pressure 100/43. White count 8.7. Hemoglobin 10.3. Platelets 69,000. Sodium 140. Potassium 4.7. Bicarb 22. BUN 20. Creatinine 0.94. Glucose 88. Chest x-ray reveals appropriately place undergo tracheal tube. NG tube coursing to his stomach. S wan-Sebas catheter, mediastinal drains and left chest tubes appropriately place. No evidence of pneumothorax. Left atrial clip seen. Aortic valvular prosthesis seen. Sternal wires mediastinal clips. The patient is seen today 03/03/2023 in follow-up in the intensive care unit. Postoperative day #1. He is currently resting comfortably in bed. Awake and alert in no acute distress. Maintaining O2 saturations in the 90s on liters per minute per nasal cannula. She's been afebrile. Hemodynamically stable. PA pressure 28/11. CVP 4. X-ray reveals borderline heart size and increasing interstitial density possibly developing mild pulmonary venous congestion. No appreciable pneumothorax. 6.9. Hemoglobin 9.2. Platelets 68,000. Sodium 137. Potassium 4.5. Bicarb 21. BUN 21. Creatinine 0.75. Glucose 117. He remains on bronchodilators. Working well with the incentive spirometer. The internal jugular O'Neals-Sebas catheter in place, right radial arterial line in place, mediastinal and left pleural chest tubes remain in place. The patient is seen today summer in follow-up in the intensive care unit. Postoperative day #2. The patient is awake and alert in no acute dis tress. Maintaining good O2 saturations in the 90s on room air. He has lactated Ringer's at KVO. The plan is to remove the chest tubes and pacer wires today. Right IJ cordis remains in place. Quinn catheter in place. Plan is to remove arterial line today. White count 7.4. Hemoglobin 8.7. Platelets 58,000. Sodium 136. Potassium 4.3. Bicarb 21. BUN 27. Creatinine 0.72. Glucose 105. He continues to work well with the incentive spirometer. Continues on bronchodilators. The patient is seen today 03/05/2023 in follow-up in the intensive care unit. Postoperative day #3. He is currently sitting up in a chair. Awake and alert in no acute distress. He is maintaining good O2 saturations in the 90s on room air. He is continued on bronchodilators. Continues to work well with the incentive spirometer. Today's chest x-ray shows interval removal of the left pleural and mediastinal chest tubes. There are trace bilateral pleural effusions. No evidence of pneumothorax. White count 6.8. Hemoglobin 8.7. Platelets 72,000. Sodium 136. Potassium 4.1 bicarb 24. BUN 26. Creatinine 0.70. Glucose 118. Objective - Vital Signs Vital signs: Vital Signs Temp 98.2 F 03/05/23 08:00 Pulse 79 03/05/23 08:25 Resp 20 03/05/23 08:00 BP 135/79 03/05/23 08:00 Pulse Ox 94 L 03/05/23 08:00 FiO2 40 03/02/23 18:17 Intake & Output 03/04/23 03/05/23 03/05/23 18:59 06:59 18:59 Intake Total 137.535 Output Total 566 540 200 Balance -428.465 -540 -200 Weight 86.7 kg Intake: IV 134 CO/CI and Pressure Bags 24 Lactated Ringers 1,000 ml 110 @ 20 mls/hr IV .Q24H ABEL Rx#:[id number] Intake, IV Titration 3.535 Amount Insulin Regular 100 unit 3.535 In Sodium Chloride 0.9% 100 ml @ Per Protocol IV .Q0M ABEL Rx#:[id number] Output: Chest Tube Drainage 90 Left Pleural 70 Mediastinal 20 Urine 475 540 200 Urine/Stool Mix 1 Other: Voiding Method Indwelling Catheter Urinal Toilet # Voids 1 1 # Bowel Movements 1 1 1 ABP, PAP, CO, CI - Last Documented Arterial Blood Pressure 134/76 Pulmonary Artery Pressure 28/11 Cardiac Output 6.3 Cardiac Index 3.1 - Exam GENERAL EXAM: Alert, pleasant 62-year-old male, up in a chair, on room air, in no apparent distress. HEAD: Normocephalic. EYES: Normal reaction of pupils, equal size. NOSE: Clear with pink turbinates. THROAT: No erythema or exudates. NECK: Right IJ cordis catheter in place. No masses, no JVD. CHEST: Sternal dressing dry and intact. Heart hugger in place. LUNGS: Equal air entry with no crackles, wheeze, rhonchi or dullness. CVS: S1 and S2 normal with no audible murmur, regular rhythm. ABDOMEN: No hepatosplenomegaly, normal bowel sounds, no guarding or rigidity. SPINE: No scoliosis or deformity SKIN: No rashes CENTRAL NERVOUS SYSTEM: No focal deficits, tone is normal in all 4 extremities. EXTREMITIES: There is no peripheral edema. No clubbing, no cyanosis. Peripheral pulses are intact. - Labs CBC & Chem 7: 03/05/23 03:56 03/05/23 03:56 Labs: Abnormal Lab Results - Last 24 Hours (Table) 03/04/23 03/04/23 03/04/23 Range/Units 11:45 16:53 19:52 RBC (4.30-5.90) m/uL Hgb (13.0-17.5) gm/dL Hct (39.0-53.0) % Plt Count (150-450) k/uL Lymphocytes # (1.0-4.8) k/uL Sodium (137-145) mmol/L BUN (9-20) mg/dL Glucose (74-99) mg/dL POC Glucose (mg/dL) 134 H 124 H 140 H (70-110) mg/dL Calcium (8.4-10.2) mg/dL Total Protein (6.3-8.2) g/dL Albumin (3.5-5.0) g/dL 03/05/23 03/05/23 03/05/23 Range/Units 03:56 03:56 06:58 RBC 2.99 L (4.30-5.90) m/uL Hgb 8.7 L (13.0-17.5) gm/dL Hct 27.0 L (39.0-53.0) % Plt Count 72 L (150-450) k/uL Lymphocytes # 0.9 L (1.0-4.8) k/uL Sodium 136 L (137-145) mmol/L BUN 26 H (9-20) mg/dL Glucose 118 H (74-99) mg/dL POC Glucose (mg/dL) 162 H (70-110) mg/dL Calcium 8.3 L (8.4-10.2) mg/dL Total Protein 5.4 L (6.3-8.2) g/dL Albumin 3.3 L (3.5-5.0) g/dL Assessment and Plan Assessment: Coronary artery disease, aortic stenosis, bicuspid aortic valve. Status post coronary bypass grafting 2 with a VENEGAS to the LAD, left radial artery to the intermediate coronary artery, ligation of left atrial appendage. Aortic valve replacement with a 27 mm Bill expressed bovine pericardial valve prosthesis. Post operative day #3. Hypoxemic respiratory failure, expected outcome of the above-mentioned surgery, intubated on mechanical ventilator, recovered and on room air Acute acute blood loss anemia, expected outcome of surgery, not requiring transfusions at this point. Hemoglobin 8.7. Platelets 72,000 Recent non-STEMI Chronic and ongoing tobacco dependence Chronic obstructive pulmonary disease, FEV1 value 75% of predicted Previous COVID-19 infection History of hypertension Hyperlipidemia Plan: The patient was seen and evaluated Chest x-ray, labs and medications reviewed Continues to work with the incentive spirometer Continue bronchodilators Stable and on room air Increase his activity as tolerated Home once cleared by CT services I have personally seen and examined the patient, performed the documentation and the assessment and plan as written. Number of minutes spent on the visit: 10.
[2023-03-05 11:27] VITALS: BP 143/99
--- NOTE | 2023-03-05 11:28 | P.DS ---
Providers Date of admission: 03/02/23 06:30 Expected date of discharge: 03/05/23 Attending physician: Fernie Colon Consults: 03/02/23 13:16 Consult Physician Routine Consulting Provider: Kyle Camejo Consult Reason/Comments: Hand Ii Thermal Cutter Consult: post cardiac surgery Do you want consulting provider notified?: Yes Consult Physician Routine Consulting Provider: Rickey Morrison Consult Reason/Comments: med mgmt Do you want consulting provider notified?: Yes Consult Physician Routine Consulting Provider: Estrellita Miller Consult Reason/Comments: Chief Nursing Officer Consult: post cardiac surgery;Cruz patient Do you want consulting provider notified?: Yes Primary care physician: [facility] Course: FINAL DIAGNOSIS: Coronary artery disease, with previous myocardial infarction and PCI, status post 2 vessel CABG Aortic stenosis with congenital bicuspid aortic valve, status post aortic valve replacement History of hypertension Hyperlipidemia COPD Current tobacco dependence Previous heavy EtOH use, cessation 25 years ago Previous covid infection Family history of premature coronary artery disease Postoperative acute blood loss anemia, thrombocytopenia, expected PRINCIPAL PROCEDURE: 1. Aortic valve replacement with 27 mm Bill Inspiris bovine pericardial valve prosthesis 2. CABG 2 with VENEGAS to LAD and left radial artery graft to intermediate coronary artery 3. Ligation of the left atrial appendage with 35 mm AtriCure clip 4. Endoscopic harvesting of the left radial artery 5. Intraoperative transesophageal echocardiogram performed by anesthesia HISTORY OF PRESENT ILLNESS: This is a 62-year-old gentleman who follows on an outpatient basis with Dr. Rickey Morrison for his primary care and Dr. Cruz for his cardiology care. In January 2023 the patient presented to [facility] with complaints of chest pain at rest and with activity associated with shortness of breath and diaphoresis. Laboratory workup was comp leted and showed elevated troponins ruling him in for a non-ST elevated myocardial infarction. Subsequently the patient underwent a heart catheterization which demonstrated a distal left main stenosis of 60-70%, an ostial LAD stenosis of 50%, an ostial circumflex stenosis of 80% with a mid circumflex stenosis of 70% an a 50% stenosis to his mid right coronary artery. The patient also underwent a transthoracic 2-D echocardiogram which showed a left ventricular systolic function to be normal with an ejection fraction 50- 55%, moderate pulmonary hypertension, right and left atrial dilation, moderate aortic valve stenosis with a peak/mean gradient 58/38 mmHg, a max velocity 3.8 m/s an aortic valve area 0.9 cm, mild aortic valve regurgitation, mild mitral valve regurgitation and mild tricuspid valve regurgitation. Subsequently, due to the findings on the above-mentioned studies and the patient presenting symptoms a consult was placed to Dr. Fernie Colon from cardiothoracic surgery for further evaluation and treatment recommendations. Dr. Colon met with the patient, discussed treatment options including aortic valve replacement and myocardial revascularization surgery, risks and benefits of surgery were discussed including the STS risk score and knowing and understanding the risks the patient wished to proceed with the surgical procedure on an elective basis. HOSPITAL COURSE: The patient was brought to the hospital on 03/02/2023, and after obtaining consent he was taken to the preoperative area, prepared in the usual fashion and subsequently taken to the operating room where Dr. Fernie Colon performed an aortic valve replacement with a 27 mm Bill Inspiris bovine pericardial valve prosthesis and a CABG 2 with VENEGAS to the LAD and left radial graft to the intermediate coronary artery. Upon completion of the surgery the patient was transferred to the cardiovascular intensive care unit where he was recovered and monitored hemodynamically. He was subsequently extubated, all lines, tubes and supportive drips were discontinued when appropriate and transfer orders were placed to the third floor cardiac stepdown unit, however due to lack of beds on the third floor cardiac stepdown unit he was kept in the intensive care unit until discharge. His oxygen was titrated down, he continued to work with physical and occupational therapy, he was tolerating a normal diet, his pain was well-controlled and he was ready to be discharged home with [facility] on postoperative day #3. He has received written and verbal instructions regarding his medications, activity restrictions, signs and symptoms requiring physician notification and his follow-up appointment. Plan - Discharge Summary Discharge Rx Participant: No New Discharge Prescriptions: New Metoprolol Tartrate [Lopressor] 75 mg PO BID #90 tab Sennosides-Docusate Sodium [Senokot-S] 2 each PO HS #14 tab Budesonide-Formot 160-4.5 Mcg [Symbicort 160-4.5 Mcg Inhaler] 2 puff INHALATION RT-BID #1 each Acetaminophen Tab [Tylenol] 1,000 mg PO Q6HR PRN tab PRN Reason: Fever and/ or Mild Pain lisinopriL [Zestril] 10 mg PO DAILY #60 tab Aspirin 325 mg PO DAILY #30 tab amLODIPine [Norvasc] 5 mg PO DAILY #30 tab Pantoprazole [Protonix] 40 mg PO AC-BRKFST #30 tab Continue Ascorbic Acid [Vitamin C] 500 mg PO DAILY Atorvastatin [Lipitor] 80 mg PO DAILY #30 tab Discontinued Naproxen Sodium [Aleve] 220 mg PO DIRECTED PRN PRN Reason: Headache Dayquil 1 tab PO DIRECTED PRN PRN Reason: Cold Symptoms Aspirin EC [Ecotrin Low Dose] 81 mg PO DAILY #30 tab Metoprolol Succinate (ER) [Toprol XL] 25 mg PO DAILY #30 tab Nitroglycerin Sl Tabs [Nitrostat] 0.4 mg SUBLINGUAL Q5M PRN #100 tab PRN Reason: Chest Pain Discharge Medication List Ascorbic Acid [Vitamin C] 500 mg PO DAILY 02/25/23 [History] Acetaminophen Tab [Tylenol] 1,000 mg PO Q6HR PRN tab 03/05/23 [Rx] Aspirin 325 mg PO DAILY #30 tab 03/05/23 [Rx] Atorvastatin [Lipitor] 80 mg PO DAILY #30 tab 03/05/23 [Rx] Budesonide-Formot 160-4.5 Mcg [Symbicort 160-4.5 Mcg Inhaler] 2 puff INHALATION RT-BID #1 each 03/05/23 [Rx] Metoprolol Tartrate [Lopressor] 75 mg PO BID #90 tab 03/05/23 [Rx] Pantoprazole [Protonix] 40 mg PO AC-BRKFST #30 tab 03/05/23 [Rx] Sennosides-Docusate Sodium [Senokot-S] 2 each PO HS #14 tab 03/05/23 [Rx] amLODIPine [Norvasc] 5 mg PO DAILY #30 tab 03/05/23 [Rx] lisinopriL [Zestril] 10 mg PO DAILY #60 tab 03/05/23 [Rx] Follow up Appointment(s)/Referral(s): Navi Cruz MD [Medical Doctor] - 2 Weeks [facility] [NON-STAFF] - 4 Weeks (You will receive a phone call in approximately 4-6 weeks for evaluation for cardiac rehab) [facility] [[facility] - 1-2 Days ([facility] will call you to schedule your in home nursing, physical therapy, and occupational therapy visits and to set up telehealth. ) Rickey Morrison MD [Primary Care Provider] - 1 Week Fernie Colon MD [STAFF PHYSICIAN] - 03/24/23 2:45 pm Allen Ryan NPC [Nurse Practitioner] - 03/10/23 11:30 am (Please follow-up at [address] [place] [address] [address], [place], [place], [address], office number is [phone]) Kyle Camejo DO [Doctor of Osteopathic Medicine] - 10 Days Ambulatory/Diagnostic Orders: Complete Blood Count w/diff [LAB.AMB] Time Frame: 03/08/23, Facility: [facility], Location: Laboratory [facility] Comprehensive Metabolic Panel [LAB.AMB] Time Frame: 03/08/23, Facility: [facility], Location: [facility] Activity/Diet/Wound Care/Special Instructions: DISCHARGE INSTRUCTIONS: 1. No driving for 4 weeks, or until physician gives their ok. 2. The patient should sleep in their own bed, no medical bed needed. 3. Stairs are not an issue. If the bedroom is upstairs, it is advised that the patient go up at night and down in the morning for the first week. Go slowly, using handrail and take 1 step at a time. 4. PLACIDO hose are to be worn for 30 days post surgery or until physician discontinues. 5. Heart hugger is to be worn 100% of the time until physician discontinues.(except when showering) 6. No lifting, pushing, or pulling more than 10 pounds for 12 weeks. The p hysician will advise of any restriction changes. 7. The patient is expected to continue the prescribed walking program. 8. Continue pain control per as needed orders. 9. Continue with incentive spirometry and splinting/heart hugger until otherwise directed by the physician. 10. Must shower daily using liquid antibacterial soap 11. Routine sternal incision care. No powders, lotions, ointments on incisions. No dressings are necessary on incisions unless they are draining. Dermabond tape is to remain on sternal incision until surgeon follow-up. 12. Please call surgeon/BATHING SUIT MAKER for temp greater than 101 F or purulent drainage from incisions. 13. You should weigh yourself daily, record and bring log with you to follow up appointments. 14. All prescriptions given by surgeon for 30 days. Refills need to be filled through home care assistant/primary care physician. 15. A Red armband has been placed on the patient. It should be worn for 30 days post discharge from surgery and will be removed by the cardiac surgeons. If an ER visit is necessary, please make sure the number on the Red armband is called before going to ER. 16. You have been referred to and are expected to begin Cardiac Rehab in approximately 4-6 weeks. 17. Quitting smoking is the most important step you can take to improve your health. For additional information and assistance to quit smoking, please call the [place] tobacco quit line (7-903-TDHL-NOW/ ) or online: [email or web address] HEALTH SERVICES TO PROVIDE: RN SKILLED HOME CARE SERVICES FOR POST-OP SURGICAL PATIENTS WITH THE FOLLOWING: Coronary Artery Bypass Surgery (CABG), Mitral Valve Replacement/Repair ( MVR), Aortic Valve Replacement/Repair (AVR) RN TO CONTINUE EDUCATION FROM ``ROAD TO A HEALTH HEART PATIENT EDUCATION MANUAL (GIVEN TO PATIENT IN THE HOSPITAL) MEDICATION RECONCILIATION WITH EDUCATION NEEDED ON FIRST HOME VISIT EMPHASIZE IMPORTANCE OF WEARING BREAST SUPPORT/HEART HUGGER ENCOURAGE USE OF INCENTIVE SPIROMETER 10 X EVERY HOUR WHILE AWAKE ENCOURAGE UTILIZATION OF LOWER EXTREMITY COMPRESSION STOCKINGS/PLACIDO HOSE and ELEVATE LEGS ABOVE LEVEL OF HEART WHILE AT REST. ENCOURAGE AMBULATION 3-5x/day INCREASING TOLERATES, WHILE AVOIDING EXTREMES IN TEMPERATURE FREQUENCY: RN TO OPEN THE PATIENT WITHIN 24 HOURS OF DISCHARGE FROM THE HOSPITAL WITH [place]HE[place] [facility] [place] TO VISIT 2-3 X A WEEK FOR 4 WEEKS ESTABLISHED BY PATIENT NEEDS. LABORATORY: CBC, CMP TO BE DRAWN ON THE THIRD DAY HOME, (RAN STAT) FAX RESULTS TO [phone]. TELEHEALTH PARAMETERS: WEIGHT: NOTIFY MD OF WEIGHT GAIN OF 2 LBS IN 24 HOURS OR 5 LBS IN ONE WEEK HR: NOTIFY MD OF HR <55 BPM OR HR>100 BPM BP: NOTIFY MD IF BP <90/55 OR BP>140/100 O2 SAT: NOTIFY MD IF PO2<93% ON ROOM AIR SEND TELEHEALTH REPORT TO FARM CONTRACTOR AND CARDIOVASCULAR SURGEON THE FIRST WEEK OF CARE AND THEN BI-WEEKLY. PLEASE ADDITIONALLY COMMUNICATE ANY ABNORMALS AND NEW FINDINGS TO THE SURGEONS OFFICE. Discharge Disposition: HOME WITH HOME HEALTH SERVICES
[2023-03-05 12:35] VITALS: PULSE 86; RESP 19
--- NOTE | 2023-03-05 15:21 | P.PN ---
Progress Note - Text Progress Note Date: 03/05/23 Interval history: I'm rounding for Dr. Rickey Morrison 03/05/2023: Sitting up in a chair. Comfortable. Eating well. Did ambulate. Breathing stable. No chest pain. Planning to discharge today. Current medications reviewed On examination: VITAL SIGNS: [8.2, 86, 19, 143.99,] GENERAL APPEARANCE: Up in a chair, comfortable HEENT: Normal external appearance of nose and ear. Oral cavity normal EYES: Pupils equal. Conjunctiva normal. NECK: JVD not raised. Mass not palpable. RESPIRATORY: Respiratory effort normal. Lungs fair air entry CARDIOVASCULAR: First and second sounds normal. No edema. ABDOMEN: Soft. Liver and spleen not palpable. No tenderness. No mass palpable. PSYCHIATRY: Alert and oriented x3. Mood and affect normal. INVESTIGATIONS, reviewed in the clinical context: March 05: White count 6.8 hemoglobin 8.7 platelets 72 potassium 4.1 creatinine 0.7 Assessment: -Aortic valve replacement with bovine prosthesis, CABG 2, ligation of left atrial appendage, -COPD -Acute postprocedure blood loss anemia expected from surgery -Thrombocytopenia, dilutional -Chronic nicotine dependence -COPD in a current smoker -Essential hypertension -Hyperlipidemia Discussed with patient. Questions answered. Discussed with Kelley CALVO from cardiothoracic surgical team. Patient to follow with Dr. Morrison and other consultants upon discharge.
[2023-03-05] MEDS ORDERED: METOPROLOL TARTRATE 50 MG TAB PO SCH ×2 (21:00)
[2023-03-06] MEDS ORDERED: ASPIRIN 325 MG TAB PO SCH (09:00)
--- NOTE | 2023-03-09 12:17 | CDI ---
Documentation Clarification Form Date: 03/09/23 From: Laura Hooper Admit Date: 03/02/2023 06:30:00 AM Patient Name: Patricio Morris Visit Number: [id number] Discharge Date: 03/05/2023 12:29:00 PM ATTENTION: The Clinical Documentation Specialists (CDI) and [facility] Coding Staff appreciate your assistance in clarifying documentation. Please respond to the clarification below the line at the bottom and electronically sign. The CDI & [facility] Coding staff will review the response and follow-up if needed. Please note: Queries are made part of the Legal Health Record. If you have any questions, please contact the author of this message via ITS. Dr. Kyle Camejo, There is documentation of hypoxic respiratory failure in your 03/04 progress note. Additional clarification of the acuity of the condition is requested. History/Risk Factors: Coronary artery disease,aortic stenosiswithcongenitalbicuspid aortic valve, aortic valve replacement and CABG X 2 Clinical Indicators: Hypoxemic respiratory failure, expected outcome of the above-mentioned surgery, intubated onmechanical ventilator. Can you please clarify the acuity of the hypoxic respiratory failure? [ ] Acute [ ] Other, please specify [ ] Unable to determine Who dictated the note? KEVIND
--- NOTE | 2023-03-10 10:45 | CDI ---
Documentation Clarification Form Date: 03/09/23 From: Laura Hooper Admit Date: 03/02/2023 06:30:00 AM Patient Name: Patricio Morris Visit Number: [id number] Discharge Date: 03/05/2023 12:29:00 PM ATTENTION: The Clinical Documentation Specialists (CDI) and [facility] Coding Staff appreciate your assistance in clarifying documentation. Please respond to the clarification below the line at the bottom and electronically sign. The CDI & [facility] Coding staff will review the response and follow-up if needed. Please note: Queries are made part of the Legal Health Record. If you have any questions, please contact the author of this message via ITS. Dr. Kyle Camejo, There is documentation of hypoxic respiratory failure in your 03/04 progress note by you and Giulia Gomez. Additional clarification of the acuity of the condition is requested. History/Risk Factors: Coronary artery disease,aortic stenosiswithcongenitalbicuspid aortic valve, aortic valve replacement and CABG X 2 Clinical Indicators: Hypoxemic respiratory failure, expected outcome of the above-mentioned surgery, intubated onmechanical ventilator. Can you please clarify the acuity of the hypoxic respiratory failure? [ ] Acute [ x ] Other, please specify [ ] Unable to determine Routine postoperative ventilator management. KEVIND
== END 2023-03-05 12:29 | disposition home health service (06) | DRG 220 ==
LOC: 2ORMAIN 06:30 → 2SICU 12:50
PROVIDERS: ADMIT Thoracic Surgery (Cardiothoracic Vascular Surgery); ATTEND Thoracic Surgery (Cardiothoracic Vascular Surgery)
PROC: 02RF08Z Replacement of Aortic Valve with Zooplastic Tissue, Open Approach (ICD-10-PCS; principal; 2023-03-02 09:00)
PROC: 5A1221Z Performance of Cardiac Output, Continuous (ICD-10-PCS; principal; 2023-03-02 09:00)
PROC: 02100AW Bypass Coronary Artery, One Artery from Aorta with Autologous Arterial Tissue, Open Approach (ICD-10-PCS; principal; 2023-03-02 09:00)
PROC: 03BC4ZZ Excision of Left Radial Artery, Percutaneous Endoscopic Approach (ICD-10-PCS; principal; 2023-03-02 09:00)
PROC: 02L70CK Occlusion of Left Atrial Appendage with Extraluminal Device, Open Approach (ICD-10-PCS; principal; 2023-03-02 09:00)
PROC: 02100Z9 Bypass Coronary Artery, One Artery from Left Internal Mammary, Open Approach (ICD-10-PCS; principal; 2023-03-02 09:00)
PROC: B24BZZ4 Ultrasonography of Heart with Aorta, Transesophageal (ICD-10-PCS; 2023-03-02 09:00)
DX: Q23.1 Congenital insufficiency of aortic valve (principal); D62 Acute posthemorrhagic anemia; J98.11 Atelectasis; I25.10 Atherosclerotic heart disease of native coronary artery without angina pectoris; I27.20 Pulmonary hypertension, unspecified; D69.6 Thrombocytopenia, unspecified; Q23.0 Congenital stenosis of aortic valve; J44.9 Chronic obstructive pulmonary disease, unspecified; I48.91 Unspecified atrial fibrillation; F10.21 Alcohol dependence, in remission; Z28.310 Unvaccinated for COVID-19; E78.00 Pure hypercholesterolemia, unspecified; E78.5 Hyperlipidemia, unspecified; I10 Essential (primary) hypertension; I25.2 Old myocardial infarction; K21.9 Gastro-esophageal reflux disease without esophagitis; F41.9 Anxiety disorder, unspecified; F90.9 Attention-deficit hyperactivity disorder, unspecified type; F17.210 Nicotine dependence, cigarettes, uncomplicated; Z71.6 Tobacco abuse counseling; Z79.82 Long term (current) use of aspirin; Z79.899 Other long term (current) drug therapy; Z95.5 Presence of coronary angioplasty implant and graft; Z86.16 Personal history of COVID-19; Z88.5 Allergy status to narcotic agent; Z82.49 Family history of ischemic heart disease and other diseases of the circulatory system
CPT/HCPCS: 36415; 71045; 71046; 80053; 82330; 82805; 83735; 85025; 85027; 85610; 85730; 86850; 86891; 86900; 86901; 86920; 87070; 87086; 88305; 88311; 94640

== ENCOUNTER 2023-03-09 00:57 | Observation (INO) | payer MEDICARE ==
--- NOTE | 2023-03-09 01:05 | ED ---
General Adult HPI - General Stated complaint: Chest Pain Source: patient, EMS Mode of arrival: EMS Limitations: no limitations - History of Present Illness Initial comments: Patricio is a 62yo M who presents to the ER via ambulance for respiratory distress. Patient is 6d s/p CABG and aortic valve repair with Dr Colon. Patient arrives very little history, he reports he wasn't feeling good so he laid down in the cold ground and doesn't remember much else. reports that she found him laying on the ground pale baker diaphoretic in respiratory distress. EMS reported that upon their arrival patient was still waiting on the ground he is pale baker diaphoretic hypotensive tachycardic with oxygen saturation in the 70s. - Related Data Home Medications Medication Instructions Recorded Confirmed Ascorbic Acid [Vitamin C] 500 mg PO DAILY 02/25/23 03/02/23 Previous Rx's Medication Instructions Recorded Acetaminophen Tab [Tylenol] 1,000 mg PO Q6HR PRN tab 03/05/23 Aspirin 325 mg PO DAILY #30 tab 03/05/23 Atorvastatin [Lipitor] 80 mg PO DAILY #30 tab 03/05/23 Budesonide-Formot 160-4.5 Mcg 2 puff INHALATION RT-BID #1 each 03/05/23 [Symbicort 160-4.5 Mcg Inhaler] Metoprolol Tartrate [Lopressor] 75 mg PO BID #90 tab 03/05/23 Pantoprazole [Protonix] 40 mg PO AC-BRKFST #30 tab 03/05/23 Sennosides-Docusate Sodium 2 each PO HS #14 tab 03/05/23 [Senokot-S] amLODIPine [Norvasc] 5 mg PO DAILY #30 tab 03/05/23 lisinopriL [Zestril] 10 mg PO DAILY #60 tab 03/05/23 Allergies Allergy/AdvReac Type Severity Reaction Status Date / Time morphine Allergy Rash/Itchin Verified 03/02/23 06:52 g/Vomiting fentanyl AdvReac Nausea & Verified 03/02/23 06:52 Vomiting & Diarrhea Review of Systems ROS Statement: Those systems with pertinent positive or pertinent negative responses have been documented in the HPI. ROS Other: All systems not noted in ROS Statement are negative. Past Medical History Past Medical History: Coronary Artery Disease (CAD), Chest Pain / Angina, COPD, GERD/Reflux, Hyperlipidemia, Hypertension, Myocardial Infarction (HI), Musculos keletal Disorder Additional Past Medical History / Comment(s): HERNIATED DISCS, NOSEBLEEDS in the past, chronic SEVERE HEADACHES, C/O ITCHING ON HANDS AND FEET, frequent abd. pain years ago, but nothing currently, resolving congestion, cough, cold symptoms, mostly gone now, recent amd to [facility] for chest pain, recent issues w/frequent heartburn Last Myocardial Infarction Date:: 2022 History of Any Multi-Drug Resistant Organisms: None Reported Past Surgical History: Heart Catheterization With Stent, Hernia Repair, Orthopedic Surgery, Tonsillectomy Additional Past Surgical History / Comment(s): TONSILS A CHILD, BILATERAL KNEE ARTHROSCOPY, ORIF right FOOT, hernia repair as a child Past Anesthesia/Blood Transfusion Reactions: No Reported Reaction Date of Last Stent Placement:: 02-09-23 Past Psychological History: ADD/ADHD, Anxiety Smoking Status: Current every day smoker - Past Family History Mother Family Medical History: Cancer, Coronary Artery Disease (CAD), Diabetes Mellitus Additional Family Medical History / Comment(s): PANCREATIC CA, HX OF HEART PROBLEMS- TRIPLE BYPASS SURGERY, STENTS Father Family Medical History: Cancer, Coronary Artery Disease (CAD), Diabetes Mellitus Additional Family Medical History / Comment(s): LUNG CA, HX OF HEART PROBLEMS Brother(s) Family Medical History: Coronary Artery Disease (CAD) Additional Family Medical History / Comment(s): 2 brothers with CAD, both having had CABG General Exam - General Exam Comments Initial Comments: Physical Exam GENERAL: Chronically ill-appearing HENT: Normocephalic, Atraumatic. EYES: PERRL, EOMI PULMONARY: Tachypnea, rales on right CARDIOVASCULAR: Tachycardic Well healing midsternal incision ABDOMEN: Well healing incisions SKIN: Well healing surgical incisions : Deferred NEUROLOGIC: Patient is alert and oriented x3 but acting bizarrely - asked EMS to give him the cardiac wires because they were his Moving all extremities spontaneously MUSCULOSKELETAL: Normal extremities with adequate strength and full range of motion. No lower extremity swelling or edema. No calf tenderness. PSYCHIATRIC: Bizarre Limitations: no limitations Course Vital Signs 03/09/23 03/09/23 03/09/23 00:59 01:34 05:56 Temperature 97.5 F L Pulse Rate 124 H 120 H 106 H Respiratory 24 26 H 22 Rate Blood Pressure 140/80 102/60 129/79 O2 Sat by Pulse 93 L 96 95 Oximetry EKG Findings - EKG Comments: EKG Findings:: EKG interpreted by me EKG obtained due to respiratory distress EKG obtained at 1:06 AM rate is 122 rhythm is sinus tach with ST depressions laterally no acute ST elevationssignificant change from previous. Medical Decision Making - Medical Decision Making Was pt. sent in by a medical professional or institution (, [facility], [facility], urgent care, hospital, or halfway...) When possible be specific @ -[No] Did you speak to anyone other than the patient for history (EMS, parent, family, police, friend...)? What history was obtained from this source @ -[No] Did you review nursing and triage notes (agree or disagree)? Why? @ -[I reviewed and agree with nursing and triage notes] Were old charts reviewed (outside hosp., previous admission, EMS record, old EKG, old radiological studies, urgent care reports/EKG's, halfway records)? Report findings @ -[No old charts were reviewed] Differential Diagnosis (chest pain, altered mental status, abdominal pain women, abdominal pain men, vaginal bleeding, weakness, fever, dyspnea, syncope, headache, dizziness, GI bleed, back pain, seizure, CVA, palpatations, mental health)? @ -[not applicable] EKG interpreted by me (3pts min.). @ -[As above] X-rays interpreted by me (1pt min.). @ -[None done] CT interpreted by me (1pt min.). @ -[None done] U/S interpreted by me (1pt. min.). @ -[None done] What testing was considered but not performed or refused? (CT, X-rays, U/S, la bs)? Why? @ -[None] What meds were considered but not given or refused? Why? @ -[None] Did you discuss the management of the patient with other professionals (professionals i.e. [facility] Luque, [facility], lab, RT, psych nurse, social work supervisor, assistant women's soccer coach, teacher, safety and security officer, upper caser)? Give summary @ -[No] Was smoking cessation discussed for >3mins.? @ -[No] Was critical care preformed (if so, how long)? @ -[No] Were there social determinants of health that impacted care today? How? (Homelessness, low income, unemployed, alcoholism, drug addiction, transportation, low edu. Level, literacy, decrease access to med. care, shelter, rehab)? @ -[No] Was there de-escalation of care discussed even if they declined (Discuss DNR or withdrawal of care, Hospice)? DNR status @ -[No] What co-morbidities impacted this encounter? (DM, HTN, Smoking, COPD, CAD, Cancer, CVA, ARF, Chemo, Hep., AIDS, mental health diagnosis, sleep apnea, morbid obesity)? @ -[None] Was patient admitted / discharged? Hospital course, mention meds given and route, prescriptions, significant lab abnormalities, going to OR and other pe rtinent info. @ Admit Patient was seen and evaluated upon arrival to the emergency department patient was in moderate respiratory distress, noted to have rapid oxygen desaturation if he took off the nonrebreather mask Sepsis workup was initiated 0200 SEPSIS IDENTIFIED - broad spectrum antibiotic ordered due to recent intubation Results a mildly elevated troponin, leukocytosis X-ray of right lower lobe pneumonia Dr. Colon was notified of patient's condition, he states there is no concern for elevated troponin due to the recent procedure and patient being chest pain- free, recommends admission for antibiotics Patient care discussed with Dr. Fernandez accepts the admission Patient was weaned from nonrebreather to nasal cannula 5 L Undiagnosed new problem with uncertain prognosis? @Yes Drug Therapy requiring intensive monitoring for toxicity (Heparin, Nitro, Insulin, Cardizem)? @ -[No] Were any procedures done? @ -[No] Diagnosis/symptom? @ Sepsis secondary to pneumonia Acute, or Chronic, or Acute on Chronic? @ Acute Uncomplicated (without systemic symptoms) or Complicated (systemic symptoms)? @ Complicated Side effects of treatment? @ -[No] Exacerbation, Progression, or Severe Exacerbation? @ -[No] Poses a threat to life or bodily function? How? (Chest pain, USA, HI, pneumonia, PE, COPD, DKA, ARF, appy, cholecystitis, CVA, Diverticulitis, Homicidal, Suicidal, threat to staff... and all critical care pts) @ Yes can advance to septic shock and - Lab Data Result diagrams: 03/09/23 01:07 03/09/23 01:07 Lab Results 03/09/23 03/09/23 03/09/23 Range/Units 01:07 01:07 01:07 WBC 12.5 H (3.8-10.6) k/uL RBC 3.19 L (4.30-5.90) m/uL Hgb 9.6 L (13.0-17.5) gm/dL Hct 28.6 L (39.0-53.0) % MCV 89.6 (80.0-100.0) fL MCH 30.0 (25.0-35.0) pg MCHC 33.4 (31.0-37.0) g/dL RDW 13.0 (11.5-15.5) % Plt Count 213 D (150-450) k/uL MPV 7.5 Neutrophils % 86 % Lymphocytes % 6 % Monocytes % 4 % Eosinophils % 2 % Basophils % 0 % Neutrophils # 10.8 H (1.3-7.7) k/uL Lymphocytes # 0.8 L (1.0-4.8) k/uL Monocytes # 0.5 (0-1.0) k/uL Eosinophils # 0.3 (0-0.7) k/uL Basophils # 0.0 (0-0.2) k/uL PT 10.9 (10.0-12.5) sec INR 1.0 (<1.2) APTT 18.7 L (22.0-30.0) sec VBG pH (7.31-7.41) VBG pCO2 (37-51) mmHg VBG HCO3 (24-28) mmol/L Carbon Monoxide, Quant (<10.0) % Sodium 137 (137-145) mmol/L Potassium 4.3 (3.5-5.1) mmol/L Chloride 101 (98-107) mmol/L Carbon Dioxide 24 (22-30) mmol/L Anion Gap 12 mmol/L BUN 18 (9-20) mg/dL Creatinine 0.75 (0.66-1.25) mg/dL Est GFR (CKD-EPI)AfAm >90 (>60 ml/min/1.73 sqM) Est GFR (CKD-EPI)NonAf >90 (>60 ml/min/1.73 sqM) Glucose 126 H (74-99) mg/dL Plasma Lactic Acid Ten (0.7-2.0) mmol/L Calcium 8.4 (8.4-10.2) mg/dL Magnesium 1.7 (1.6-2.3) mg/dL Total Bilirubin 0.7 (0.2-1.3) mg/dL AST 41 (17-59) U/L ALT 31 (4-49) U/L Alkaline Phosphatase 72 (38-126) U/L Troponin I (0.000-0.034) ng/mL NT-Pro-B Natriuret Pep 1750 pg/mL Total Protein 5.9 L (6.3-8.2) g/dL Albumin 3.3 L (3.5-5.0) g/dL 03/09/23 03/09/23 03/09/23 Range/Units 01:07 01:07 01:07 WBC (3.8-10.6) k/uL RBC (4.30-5.90) m/uL Hgb (13.0-17.5) gm/dL Hct (39.0-53.0) % MCV (80.0-100.0) fL MCH (25.0-35.0) pg MCHC (31.0-37.0) g/dL RDW (11.5-15.5) % Plt Count (150-450) k/uL MPV Neutrophils % % Lymphocytes % % Monocytes % % Eosinophils % % Basophils % % Neutrophils # (1.3-7.7) k/uL Lymphocytes # (1.0-4.8) k/uL Monocytes # (0-1.0) k/uL Eosinophils # (0-0.7) k/uL Basophils # (0-0.2) k/uL PT (10.0-12.5) sec INR (<1.2) APTT (22.0-30.0) sec VBG pH 7.42 H (7.31-7.41) VBG pCO2 42 (37-51) mmHg VBG HCO3 27 (24-28) mmol/L Carbon Monoxide, Quant 3.5 (<10.0) % Sodium (137-145) mmol/L Potassium (3.5-5.1) mmol/L Chloride (98-107) mmol/L Carbon Dioxide (22-30) mmol/L Anion Gap mmol/L BUN (9-20) mg/dL Creatinine (0.66-1.25) mg/dL Est GFR (CKD-EPI)AfAm (>60 ml/min/1.73 sqM) Est GFR (CKD-EPI)NonAf (>60 ml/min/1.73 sqM) Glucose (74-99) mg/dL Plasma Lactic Acid Ten (0.7-2.0) mmol/L Calcium (8.4-10.2) mg/dL Magnesium (1.6-2.3) mg/dL Total Bilirubin (0.2-1.3) mg/dL AST (17-59) U/L ALT (4-49) U/L Alkaline Phosphatase (38-126) U/L Troponin I 1.010 H* (0.000-0.034) ng/mL NT-Pro-B Natriuret Pep pg/mL Total Protein (6.3-8.2) g/dL Albumin (3.5-5.0) g/dL 03/09/23 Range/Units 02:22 WBC (3.8-10.6) k/uL RBC (4.30-5.90) m/uL Hgb (13.0-17.5) gm/dL Hct (39.0-53.0) % MCV (80.0-100.0) fL MCH (25.0-35.0) pg MCHC (31.0-37.0) g/dL RDW (11.5-15.5) % Plt Count (150-450) k/uL MPV Neutrophils % % Lymphocytes % % Monocytes % % Eosinophils % % Basophils % % Neutrophils # (1.3-7.7) k/uL Lymphocytes # (1.0-4.8) k/uL Monocytes # (0-1.0) k/uL Eosinophils # (0-0.7) k/uL Basophils # (0-0.2) k/uL PT (10.0-12.5) sec INR (<1.2) APTT (22.0-30.0) sec VBG pH (7.31-7.41) VBG pCO2 (37-51) mmHg VBG HCO3 (24-28) mmol/L Carbon Monoxide, Quant (<10.0) % Sodium (137-145) mmol/L Potassium (3.5-5.1) mmol/L Chloride (98-107) mmol/L Carbon Dioxide (22-30) mmol/L Anion Gap mmol/L BUN (9-20) mg/dL Creatinine (0.66-1.25) mg/dL Est GFR (CKD-EPI)AfAm (>60 ml/min/1.73 sqM) Est GFR (CKD-EPI)NonAf (>60 ml/min/1.73 sqM) Glucose (74-99) mg/dL Plasma Lactic Acid Ten 1.4 (0.7-2.0) mmol/L Calcium (8.4-10.2) mg/dL Magnesium (1.6-2.3) mg/dL Total Bilirubin (0.2-1.3) mg/dL AST (17-59) U/L ALT (4-49) U/L Alkaline Phosphatase (38-126) U/L Troponin I (0.000-0.034) ng/mL NT-Pro-B Natriuret Pep pg/mL Total Protein (6.3-8.2) g/dL Albumin (3.5-5.0) g/dL - EKG Data -: EKG Interpreted by Me Disposition Clinical Impression: Acute respiratory failure, RLL pneumonia Disposition: ADMITTED IP TO THIS HOSP Condition: Serious Is patient prescribed a controlled substance at d/c from ED?: No
[2023-03-09 01:25] LABS: Basophils % (A) 0 %; Eosinophils # (A) 0.3 k/uL (0-0.7); Eosinophils % (A) 2 %; HCT 28.6 % (39.0-53.0); HGB 9.6 gm/dL (13.0-17.5); Lymphocytes # (A) 0.8 k/uL (1.0-4.8); Lymphocytes % (A) 6 %; MCHC 33.4 g/dL (31.0-37.0); MCV 89.6 fL (80.0-100.0); Mean Platelet Volume 7.5; Monocytes # (A) 0.5 k/uL (0-1.0); Monocytes % (A) 4 %; Neutrophils # (A) 10.8 k/uL (1.3-7.7); Neutrophils % (A) 86 %; RBC 3.19 m/uL (4.30-5.90); WBC 12.5 k/uL (3.8-10.6)
[2023-03-09 01:26] LABS: VBG PH 7.42 (7.31-7.41)
[2023-03-09 01:29] LABS: Platelet Count 213 k/uL (150-450)
[2023-03-09 01:37] LABS: ALT 31 U/L (4-49); African American GFR (CKD) >90 (>60 ml/min/1.73 sqM); Albumin 3.3 g/dL (3.5-5.0); Anion Gap 12 mmol/L; Blood Urea Nitrogen 18 mg/dL (9-20); Calcium 8.4 mg/dL (8.4-10.2); Carbon Dioxide 24 mmol/L (22-30); Chloride 101 mmol/L (98-107); Glucose 126 mg/dL (74-99); Non-African American GFR(CKD) >90 (>60 ml/min/1.73 sqM); Sodium 137 mmol/L (137-145); Total Bilirubin 0.7 mg/dL (0.2-1.3); Total Protein 5.9 g/dL (6.3-8.2)
[2023-03-09 01:38] LABS: Potassium 4.3 mmol/L (3.5-5.1)
[2023-03-09 01:39] LABS: AST 41 U/L (17-59); Alkaline Phosphatase 72 U/L (38-126); Magnesium 1.7 mg/dL (1.6-2.3)
[2023-03-09 01:40] LABS: Prothrombin Time 10.9 sec (10.0-12.5)
[2023-03-09 01:46] LABS: NT-Pro-B-Type Natriuretic Pept 1750 pg/mL
--- NOTE | 2023-03-09 01:53 | XR ---
EXAM: XR Chest, 2 Views CLINICAL HISTORY: ITS.REASON XR Reason: Chest Pain TECHNIQUE: Frontal and lateral views of the chest. COMPARISON: No relevant prior studies available. FINDINGS: Lungs: Airspace consolidation at the right lung base, consistent with a right lower lobe pneumonia. Mild right middle lobe involvement not excluded. Pleural space: Small bilateral pleural effusions. No pneumothorax. Heart: Cardiomegaly. Sternotomy wires. Prosthetic aortic valve. Mediastinum: Unremarkable. Normal mediastinal contour. Bones/joints: See above. IMPRESSION: 1. Airspace consolidation at the right lung base, consistent with a right lower lobe pneumonia. Mild right middle lobe involvement not excluded. 2. Small bilateral pleural effusions.
[2023-03-09 01:56] LABS: Partial Thromboplastin Time 18.7 sec (22.0-30.0)
[2023-03-09] MEDS ORDERED: AMPICILLIN-SULBACTAM 3 GM in SODIUM CHLORIDE 0.9% 100 ML IVPB STA (02:18)
[2023-03-09] MEDS ORDERED: SODIUM CHLORIDE 0.9% 1,000 ML IV ONE (02:21)
[2023-03-09] MEDS ORDERED: SODIUM CHLORIDE 0.9% 1,000 ML IV SCH (02:30)
[2023-03-09] MEDS ORDERED: PNEUMONIA PROTOCOL UTILIZED 1 EACH MISC PO PRN (04:13)
[2023-03-09] MEDS: ACETAMINOPHEN TAB 500 MG TAB PO PRN ×2 (07:18→20:29)
[2023-03-09] MEDS ORDERED: FUROSEMIDE 10 MG/ML 4 ML VIAL IV STA (08:06)
[2023-03-09] MEDS: SYMBICORT 160-4.5 MCG INHALER INHALATION SCH ×2 (08:41→21:25)
[2023-03-09] MEDS: lisinopriL 10 MG TAB PO SCH (09:28)
[2023-03-09] MEDS: ATORVASTATIN 80 MG TAB PO SCH (09:28)
[2023-03-09] MEDS: ASPIRIN 325 MG TAB PO SCH (09:28)
[2023-03-09] MEDS: amLODIPine 5 MG TAB PO SCH (09:28)
[2023-03-09] MEDS: PANTOPRAZOLE 40 MG TABLET PO SCH (09:28)
[2023-03-09] MEDS: ASCORBIC ACID 500 MG TAB PO SCH (09:28)
[2023-03-09] MEDS: METOPROLOL TARTRATE 50 MG TAB PO SCH ×2 (09:29→20:29)
[2023-03-09] MEDS ORDERED: ALPRAZolam 0.25 MG TAB PO PRN (09:45)
--- NOTE | 2023-03-09 12:25 | P.GSHP ---
History of Present Illness H&P Date: 03/09/23 Chief Complaint: shortness of breath This is a 62-year-old gentleman who follows on an outpatient basis with Dr. Rickey Morrison for his primary care and Dr. Cruz for his cardiology care. He has a previous medical history of CAD with previous IA and PCI status post 2 vessel CABG, congential bicuspid aortic stenosis status post bioprostetic aortic valve replacement, hypertension, hyperlipidemia, COPD, current tobacco dependence, previous heavy ETOH use, and previous covid. He was recently hospitalized for elective CABG/AVR, his recovery was uneventful, and he was discharged to home with home care 03/05/23. He was recovering at home but yesterday was noted to be slightly confused and was found laying on the bathroom floor, appeared wasserman and short of breath. Of note, the patient's had previously reported to our service that the patient had not been getting sleep at home and may have had an element of delerium. His called EMS and he was brought to [facility] for evaluation and treatment. EMS report was that his blood pressure was very low, however BPs recorded here are normal to hypertensive. He is tachy although unclear if he took his beta jerald last night. He remains afebrile, WBC 12.5, lactic acid 1.0, BNP 1750. CXR demonstrated consolidation vs atelectasis in the right lower lobe. The patient was started on IV antibiotics and given a fluid bolus as he was initially felt to be septic. Upon examination in the ER with Dr. Colon the patient stated he had been constipated at home, but had had a bowel movement this morning in the ER and feels significantly better, would like to go home. The patient was placed in observation status, IV fluids were stopped, IV lasix ordered as it was felt patient more likely had combination heart failure and atelectasis as he had not been discharged on lasix, and likely was not aggressive with his pulmonary hygeine. He does state he has not smoked since being home. Dr. Colon discussed the plan with the patient who may be discharged later today vs. tomorrow depending on his clinical course. - Review of Systems Comment: ROS was completed and was negative except as noted in the HPI - Respiratory Respiratory: Reports as per HPI, Reports dyspnea - Gastrointestinal Gastrointestinal: Reports as per HPI, Reports constipation - Neurological Neurological: Reports as per HPI, Reports confusion Past Medical History Past Medical History: Coronary Artery Disease (CAD), Chest Pain / Angina, COPD, GERD/Reflux, Hyperlipidemia, Hypertension, Myocardial Infarction (IA), Musculoskeletal Disorder Additional Past Medical History / Comment(s): HERNIATED DISCS, NOSEBLEEDS in the past, chronic SEVERE HEADACHES, C/O ITCHING ON HANDS AND FEET, frequent abd. pain years ago, but nothing currently, resolving congestion, cough, cold symptoms, mostly gone now, recent amd to [facility] for chest pain, recent issues w/frequent heartburn Last Myocardial Infarction Date:: 2022 History of Any Multi-Drug Resistant Organisms: None Reported Past Surgical History: Heart Catheterization With Stent, Hernia Repair, Orthopedic Surgery, Tonsillectomy Additional Past Surgical History / Comment(s): TONSILS A CHILD, BILATERAL KNEE ARTHROSCOPY, ORIF right FOOT, hernia repair as a child Past Anesthesia/Blood Transfusion Reactions: No Reported Reaction Date of Last Stent Placement:: 02-09-23 Past Psychological History: ADD/ADHD, Anxiety Smoking Status: Current every day smoker Past Alcohol Use History: None Reported Past Drug Use History: None Reported - Past Family History Mother Family Medical History: Cancer, Coronary Artery Disease (CAD), Diabetes Mellitus Additional Family Medical History / Comment(s): PANCREATIC CA, HX OF HEART PROBLEMS- TRIPLE BYPASS SURGERY, STENTS Father Family Medical History: Cancer, Coronary Artery Disease (CAD), Diabetes Mellitus Additional Family Medical History / Comment(s): LUNG CA, HX OF HEART PROBLEMS Brother(s) Family Medical History: Coronary Artery Disease (CAD) Additional Family Medical History / Comment(s): 2 brothers with CAD, both having had CABG Medications and Allergies Home Medications Medication Instructions Recorded Confirmed Type Ascorbic Acid [Vitamin C] 500 mg PO DAILY 02/25/23 03/09/23 History Acetaminophen Tab [Tylenol] 1,000 mg PO Q6HR PRN tab 03/05/23 03/09/23 Rx Aspirin 325 mg PO DAILY #30 tab 03/05/23 03/09/23 Rx Atorvastatin [Lipitor] 80 mg PO DAILY #30 tab 03/05/23 03/09/23 Rx Budesonide-Formot 160-4.5 Mcg 2 puff INHALATION RT-BID #1 each 03/05/23 03/09/23 Rx [Symbicort 160-4.5 Mcg Inhaler] Metoprolol Tartrate [Lopressor] 75 mg PO BID #90 tab 03/05/23 03/09/23 Rx Pantoprazole [Protonix] 40 mg PO AC-BRKFST #30 tab 03/05/23 03/09/23 Rx amLODIPine [Norvasc] 5 mg PO DAILY #30 tab 03/05/23 03/09/23 Rx lisinopriL [Zestril] 10 mg PO DAILY #60 tab 03/05/23 03/09/23 Rx ALPRAZolam [Xanax] 0.25 mg PO TID PRN 03/09/23 03/09/23 History Sennosides-Docusate Sodium 2 tab PO HS 03/09/23 03/09/23 History [Senokot-S] Allergies Allergy/AdvReac Type Severity Reaction Status Date / Time morphine Allergy Rash/Itchin Verified 03/09/23 08:51 g/Vomiting fentanyl AdvReac Nausea & Verified 03/09/23 08:51 Vomiting & Diarrhea Surgical - Exam Vital Signs Temp Pulse Resp BP Pulse Ox 97.5 F L 124 H 24 140/80 93 L 03/09/23 00:59 03/09/23 00:59 03/09/23 00:59 03/09/23 00:59 03/09/23 00:59 CONSTITUTIONAL: Awake and alert, appears comfortable, cooperative, well- developed, well-nourished, no pain, no acute distress EYES: Pupils equal, round, reactive to light, normal ocular movement ENT: Moist mucous membranes without oral lesions present NECK: No masses, no bruits, trachea midline RESPIRATORY: Lungs sounds diminished bilaterally. Respirations even, nonlabored. Currently on 4 LPM NC with oxygen saturation 96%. Strong cough. No chest wall deformities. No clubbing or cyanosis present CARDIOVASCULAR: S1, S2 present. Regular rate and rhythm, sinus rhythm on telemetry. Palpable peripheral pulses bilaterally. No edema present GASTROINTESTINAL: Abdomen soft, nontender, nondistended without masses or organomegaly noted. There is no rebound or guarding present. Active bowel sounds present 4 quadrants. GENITOURINARY: Anterior chest incision well approximated INTEGUMENTARY: Skin is warm and dry NEUROLOGIC: Cranial nerves II through XII intact, normal coordination, no obvious motor or sensory deficits, speech is normal MUSKULOSKELETAL: Able to move all extremities, strength equal bilaterally, normal posture PSYCHIATRIC: Alert and oriented to person place and time Results - Labs 03/09/23 01:07 03/09/23 01:07 Abnormal Lab Results - Last 24 Hours (Table) 03/09/23 03/09/23 03/09/23 Range/Units 01:07 01:07 01:07 WBC 12.5 H (3.8-10.6) k/uL RBC 3.19 L (4.30-5.90) m/uL Hgb 9.6 L (13.0-17.5) gm/dL Hct 28.6 L (39.0-53.0) % Neutrophils # 10.8 H (1.3-7.7) k/uL Lymphocytes # 0.8 L (1.0-4.8) k/uL APTT 18.7 L (22.0-30.0) sec VBG pH (7.31-7.41) Glucose 126 H (74-99) mg/dL Troponin I (0.000-0.034) ng/mL Total Protein 5.9 L (6.3-8.2) g/dL Albumin 3.3 L (3.5-5.0) g/dL 03/09/23 03/09/23 Range/Units 01:07 01:07 WBC (3.8-10.6) k/uL RBC (4.30-5.90) m/uL Hgb (13.0-17.5) gm/dL Hct (39.0-53.0) % Neutrophils # (1.3-7.7) k/uL Lymphocytes # (1.0-4.8) k/uL APTT (22.0-30.0) sec VBG pH 7.42 H (7.31-7.41) Glucose (74-99) mg/dL Troponin I 1.010 H* (0.000-0.034) ng/mL Total Protein (6.3-8.2) g/dL Albumin (3.5-5.0) g/dL Diabetes panel 03/09/23 Range/Units 01:07 Sodium 137 (137-145) mmol/L Potassium 4.3 (3.5-5.1) mmol/L Chloride 101 (98-107) mmol/L Carbon Dioxide 24 (22-30) mmol/L BUN 18 (9-20) mg/dL Creatinine 0.75 (0.66-1.25) mg/dL Glucose 126 H (74-99) mg/dL Calcium 8.4 (8.4-10.2) mg/dL AST 41 (17-59) U/L ALT 31 (4-49) U/L Alkaline Phosphatase 72 (38-126) U/L Total Protein 5.9 L (6.3-8.2) g/dL Albumin 3.3 L (3.5-5.0) g/dL Calcium panel 03/09/23 Range/Units 01:07 Calcium 8.4 (8.4-10.2) mg/dL Albumin 3.3 L (3.5-5.0) g/dL Pituitary panel 03/09/23 Range/Units 01:07 Sodium 137 (137-145) mmol/L Potassium 4.3 (3.5-5.1) mmol/L Chloride 101 (98-107) mmol/L Carbon Dioxide 24 (22-30) mmol/L BUN 18 (9-20) mg/dL Creatinine 0.75 (0.66-1.25) mg/dL Glucose 126 H (74-99) mg/dL Calcium 8.4 (8.4-10.2) mg/dL Adrenal panel 03/09/23 Range/Units 01:07 Sodium 137 (137-145) mmol/L Potassium 4.3 (3.5-5.1) mmol/L Chloride 101 (98-107) mmol/L Carbon Dioxide 24 (22-30) mmol/L BUN 18 (9-20) mg/dL Creatinine 0.75 (0.66-1.25) mg/dL Glucose 126 H (74-99) mg/dL Calcium 8.4 (8.4-10.2) mg/dL Total Bilirubin 0.7 (0.2-1.3) mg/dL AST 41 (17-59) U/L ALT 31 (4-49) U/L Alkaline Phosphatase 72 (38-126) U/L Total Protein 5.9 L (6.3-8.2) g/dL Albumin 3.3 L (3.5-5.0) g/dL - Imaging Chest x-ray: report reviewed, image reviewed EKG: image reviewed Assessment and Plan Assessment: Shortness of breath, tachy, hypertensive Constipation, resolved CAD with previous IA and PCI status post 2 vessel CABG Congential bicuspid aortic stenosis status post bioprostetic aortic valve replacement Hypertension Hyperlipidemia COPD Current tobacco dependence Previous heavy ETOH use Previous covid Plan: The patient was seen and examined with Dr. Colon, chart/diagnostics were reviewed. It was felt patient is not septic, that he likely has a component of heart failure and atelectasis. We will stop his IV fluids, administer IV lasix. We will encourage aggressive pulmonary hygiene. We will repeat CBC this afternoon. Patient may likely be discharge to home with home care this afternoon vs. tomorrow, depending on how he's doing, to follow up end of this week/early next week in our office. When discharged he will be sent home on oral lasix. Home medications ordered. Smoking cessation counseling and education reinforced. Incentive spirometry ordered. Increase activity as tolerated. Discussed at length with the patient by Dr. Colon. More recommendations to follow.
[2023-03-09 13:54] LABS: HGB 8.8 gm/dL (13.0-17.5); Hypochromasia Slight; MCH 29.4 pg (25.0-35.0); MCHC 32.5 g/dL (31.0-37.0); MCV 90.7 fL (80.0-100.0); Mean Platelet Volume 7.7; Platelet Count 197 k/uL (150-450); RBC 2.97 m/uL (4.30-5.90); RDW 13.3 % (11.5-15.5); WBC 11.1 k/uL (3.8-10.6)
[2023-03-09] MEDS ORDERED: FUROSEMIDE 10 MG/ML 4 ML VIAL IV ONE (16:00)
[2023-03-09 16:43] VITALS: RESP 18
[2023-03-09 20:20] LABS: Glucose,Whole Blood 132 mg/dL (70-110)
[2023-03-09] MEDS ORDERED: SENNOSIDES-DOCUSATE SODIUM 1 EACH TAB PO SCH (21:00)
[2023-03-10] MEDS: ACETAMINOPHEN TAB 500 MG TAB PO PRN (02:23)
[2023-03-10 06:05] LABS: Glucose,Whole Blood 138 mg/dL (70-110)
[2023-03-10] MEDS: PANTOPRAZOLE 40 MG TABLET PO SCH (06:13)
[2023-03-10 07:55] LABS: HCT 27.8 % (39.0-53.0); HGB 9.2 gm/dL (13.0-17.5); Hypochromasia Slight; MCH 29.7 pg (25.0-35.0); MCHC 33.1 g/dL (31.0-37.0); MCV 89.7 fL (80.0-100.0); Platelet Count 210 k/uL (150-450); RDW 13.1 % (11.5-15.5); WBC 7.6 k/uL (3.8-10.6)
[2023-03-10 08:24] LABS: African American GFR (CKD) >90 (>60 ml/min/1.73 sqM); Anion Gap 10 mmol/L; Blood Urea Nitrogen 20 mg/dL (9-20); Calcium 8.8 mg/dL (8.4-10.2); Carbon Dioxide 28 mmol/L (22-30); Chloride 100 mmol/L (98-107); Glucose 117 mg/dL (74-99); Non-African American GFR(CKD) >90 (>60 ml/min/1.73 sqM); Potassium 3.9 mmol/L (3.5-5.1); Sodium 138 mmol/L (137-145)
[2023-03-10] MEDS: SYMBICORT 160-4.5 MCG INHALER INHALATION SCH (08:26)
[2023-03-10 08:32] LABS: NT-Pro-B-Type Natriuretic Pept 1250 pg/mL
[2023-03-10] MEDS ORDERED: POTASSIUM BICARBONATE/CIT AC 20 MEQ TABLET.EFF PO ONE (08:42)
[2023-03-10] MEDS ORDERED: FUROSEMIDE 10 MG/ML 4 ML VIAL IV STA (08:42)
--- NOTE | 2023-03-10 08:54 | P.PN ---
Subjective Progress Note Date: 03/10/23 Principal diagnosis: Acute heart failure with preserved EF, constipation. Previous history of CAD with previous AL and PCI status post 2 vessel CABG, congential bicuspid aortic stenosis status post bioprostetic aortic valve replacement, hypertension, hyperlipidemia, COPD, current tobacco dependence, previous heavy ETOH use The patient was seen and examined this morning sitting up in bed in the cardiac stepdown unit in no acute distress. States he feels much improved and would like to go home. Remains in sinus rhythm, hemodynamically stable. Was given IV Lasix 2 yesterday with excellent diuresis. Has been ambulatory without difficulty. Remains afebrile, WBC down to 7.6 without antibiotics, BNP decreased to 1250. Anticipate discharge to home this afternoon. Objective - Vital Signs Vital signs: Vital Signs Temp 98.2 F 03/09/23 20:00 Pulse 77 03/10/23 04:00 Resp 18 03/10/23 04:00 BP 113/66 03/10/23 04:00 Pulse Ox 96 03/10/23 04:00 FiO2 Intake & Output 03/09/23 03/10/23 03/10/23 18:59 06:59 18:59 Intake Total 120 540 Output Total 1000 250 Balance -880 290 Intake: Oral 120 540 Output: Urine 1000 250 Other: Voiding Method Urinal Urinal - Exam CONSTITUTIONAL: Appears comfortable, cooperative, no acute distress RESPIRATORY: Lungs sounds diminished bilaterally. Respirations even, nonlabored. Currently on 2 L nasal cannula with oxygen saturation 96%. Able to achieve 1000 mL on incentive spirometry. Strong cough. CARDIOVASCULAR: S1, S2 present. Regular rate and rhythm, sinus rhythm on telemetry. Sternum stable. Palpable peripheral pulses bilaterally. No edema present. No calf pain or tenderness noted. Heart hugger in place with patient demonstrating appropriate use GASTROINTESTINAL: Abdomen soft, nontender, nondistended. Active bowel sounds present 4 quadrants. Tolerating diet. Positive bowel movement 03/09 GENITOURINARY: Continues to void clear, yellow urine INTEGUMENTARY: Skin is warm and dry with evidence of good perfusion. Anterior chest incision, left radial artery harvest site well approximated NEUROLOGIC: Cranial nerves II through XII intact MUSKULOSKELETAL: Able to move all extremities, strength equal bilaterally, gait normal PSYCHIATRIC: Alert and oriented to person place and time, appropriate affect, intact judgment and insight although the patient is a bit fidgety and impulsive - Allied health notes Allied health notes reviewed: nursing - Labs CBC & Chem 7: 03/10/23 07:31 03/10/23 07:31 Labs: Abnormal Lab Results - Last 24 Hours (Table) 03/09/23 03/09/23 03/10/23 Range/Units 13:29 20:19 06:04 WBC 11.1 H (3.8-10.6) k/uL RBC 2.97 L (4.30-5.90) m/uL Hgb 8.8 L (13.0-17.5) gm/dL Hct 27.0 L (39.0-53.0) % Glucose (74-99) mg/dL POC Glucose (mg/dL) 132 H 138 H (70-110) mg/dL 03/10/23 03/10/23 Range/Units 07:31 07:31 WBC (3.8-10.6) k/uL RBC 3.10 L (4.30-5.90) m/uL Hgb 9.2 L (13.0-17.5) gm/dL Hct 27.8 L (39.0-53.0) % Glucose 117 H (74-99) mg/dL POC Glucose (mg/dL) (70-110) mg/dL - Imaging and Cardiology Chest x-ray: image reviewed Assessment and Plan Assessment: Acute heart failure with preserved EF Shortness of breath, tachy, hypertensive, resolved Constipation, resolved CAD with previous AL and PCI status post 2 vessel CABG Congential bicuspid aortic stenosis status post bioprostetic aortic valve replacement Hypertension Hyperlipidemia COPD Current tobacco dependence Previous heavy ETOH use Previous covid Plan: Continue medical therapy with aspirin, statin, beta jerald, NORBERTO-I Continue calcium channel jerald for radial artery spasm prophylaxis We will give IV Lasix this morning, replace potassium The patient has no pneumonia, is not septic Wean O2 as tolerated. Will perform home oxygen evaluation after diuresis from Lasix Encourage incentive spirometry use Smoking cessation counseling and education reinforced Increase activity, ambulate in the hallway Likely will discharge to home with home care today to follow up next week in the office More recommendations to follow
[2023-03-10] MEDS: amLODIPine 5 MG TAB PO SCH (09:28)
[2023-03-10] MEDS: ASPIRIN 325 MG TAB PO SCH (09:28)
[2023-03-10] MEDS: lisinopriL 10 MG TAB PO SCH (09:28)
[2023-03-10] MEDS: ASCORBIC ACID 500 MG TAB PO SCH (09:28)
[2023-03-10] MEDS: ATORVASTATIN 80 MG TAB PO SCH (09:28)
[2023-03-10] MEDS: METOPROLOL TARTRATE 50 MG TAB PO SCH (09:29)
--- NOTE | 2023-03-10 09:31 | XR ---
EXAMINATION TYPE: XR chest 2V DATE OF EXAM: 03/10/2023 COMPARISON: 03/09/2023 HISTORY: 62 year-old male post cardiac surgery TECHNIQUE: PA and lateral views FINDINGS: Median sternotomy wires are present with post-CABG clips and prosthetic aortic valve. Heart normal si ze, improved from yesterday. Aeration particularly at the lung bases is also significantly improving. There is mild hyperinflation. Trace effusions remain on the lateral view. IMPRESSION: Significant interval improvement in aeration. There may be some underlying COPD. Even the cardiac siz e shows improvement. Only trace bilateral pleural effusions remain on the lateral view.
[2023-03-10 11:28] LABS: Glucose,Whole Blood 145 mg/dL (70-110)
[2023-03-10 13:26] VITALS: BP 102/60; PULSE 74; TEMP 96.3
--- NOTE | 2023-03-10 17:16 | P.DS ---
Providers Date of admission: 03/09/23 04:14 Expected date of discharge: 03/10/23 Attending physician: Fernie Colon Consults: 03/09/23 04:13 Consult Physician Routine Consulting Provider: Fernie Colon Consult Reason/Comments: post op patient Do you want consulting provider notified?: Already Contacted Primary care physician: Rickey Morrison [facility] Course: FINAL DIAGNOSIS: Acute heart failure with preserved EF Shortness of breath, tachy, hypertensive Constipation, resolved CAD with previous MT and PCI status post 2 vessel CABG Congential bicuspid aortic stenosis status post bioprostetic aortic valve replacement Hypertension Hyperlipidemia COPD Current tobacco dependence Previous heavy ETOH use HISTORY OF PRESENT ILLNESS/HOSPITAL COURSE: This is a 62-year-old gentleman who follows on an outpatient basis with Dr. Rickey Morrison for his primary care and Dr. Cruz for his cardiology care. He was recently hospitalized for elective CABG/AVR, his recovery was uneventful, and he was discharged to home with home care 03/05/23. He was recovering at home but the night before admission was noted to be slightly confused and was found laying on the bathroom floor, appeared wasserman and short of breath. Of note, the patient's had previously reported to our service that the patient had not been getting sleep at home and may have had an element of delerium. His called EMS and he was brought to [facility] for evaluation and treatment. EMS report was that his blood pressure was very low, however BPs recorded here were normal to hypertensive. He was tachy although unclear if he had taken his beta jerald the night before admission. He remained afebrile, WBC 12.5, lactic acid 1.0, BNP 1750. CXR demonstrated consolidation vs atelectasis in the right lower lobe. The patient was given a dose of IV antibiotics and a fluid bolus as he was initially felt to be septic. Upon examination in the ER with Dr. Colon the patient stated he had been constipated at home, but had had a bowel movement the morning of admission in the ER and felt significantly better, and he wanted to go home. The patient was placed in observation status, IV fluids were stopped, IV lasix ordered as it was felt patient more likely had combination heart failure and atelectasis as he had not been discharged on lasix after his previous admission, and likely was not aggressive with his pulmonary hygeine. He did state he had not smoked since being home. The patient remained in the hospital overnight in observation, WBC was normal and he remained afebrile. Vital signs were stable, however the patient did have low oxygen saturation at rest and required discharge on home oxygen. He was seen and worked with physical and occupational therapy, he was tolerating minimal oral diet as he said food didn't taste good, his pain was controlled, and he was discharged to home with home care and oxygen on 03/10/2023. He received written and verbal instructions regarding medications, activity restrictions, signs and symptoms requiring physician notification, and follow-up appointments. Both the patient and his verbalized understanding. Patient Condition at Discharge: Serious Plan - Discharge Summary Discharge Rx Participant: Yes New Discharge Prescriptions: New Potassium Chloride ER [K-Dur 20] 20 meq PO BID #14 tab Furosemide [Lasix] 40 mg PO DAILY #7 tablet Continue Ascorbic Acid [Vitamin C] 500 mg PO DAILY Metoprolol Tartrate [Lopressor] 75 mg PO BID #90 tab Budesonide-Formot 160-4.5 Mcg [Symbicort 160-4.5 Mcg Inhaler] 2 puff INHALATION RT-BID #1 each Acetaminophen Tab [Tylenol] 1,000 mg PO Q6HR PRN tab PRN Reason: Fever and/ or Mild Pain lisinopriL [Zestril] 10 mg PO DAILY #60 tab Sennosides-Docusate Sodium [Senokot-S] 2 tab PO HS ALPRAZolam [Xanax] 0.25 mg PO TID PRN PRN Reason: Anxiety Aspirin 325 mg PO DAILY #30 tab amLODIPine [Norvasc] 5 mg PO DAILY #30 tab Pantoprazole [Protonix] 40 mg PO AC-BRKFST #30 tab Atorvastatin [Lipitor] 80 mg PO DAILY #30 tab Discharge Medication List Ascorbic Acid [Vitamin C] 500 mg PO DAILY 02/25/23 [History] Acetaminophen Tab [Tylenol] 1,000 mg PO Q6HR PRN tab 03/05/23 [Rx] Aspirin 325 mg PO DAILY #30 tab 03/05/23 [Rx] Atorvastatin [Lipitor] 80 mg PO DAILY #30 tab 03/05/23 [Rx] Budesonide-Formot 160-4.5 Mcg [Symbicort 160-4.5 Mcg Inhaler] 2 puff INHALATION RT-BID #1 each 03/05/23 [Rx] Metoprolol Tartrate [Lopressor] 75 mg PO BID #90 tab 03/05/23 [Rx] Pantoprazole [Protonix] 40 mg PO AC-BRKFST #30 tab 03/05/23 [Rx] amLODIPine [Norvasc] 5 mg PO DAILY #30 tab 03/05/23 [Rx] lisinopriL [Zestril] 10 mg PO DAILY #60 tab 03/05/23 [Rx] ALPRAZolam [Xanax] 0.25 mg PO TID PRN 03/09/23 [History] Sennosides-Docusate Sodium [Senokot-S] 2 tab PO HS 03/09/23 [History] Furosemide [Lasix] 40 mg PO DAILY #7 tablet 03/10/23 [Rx] Potassium Chloride ER [K-Dur 20] 20 meq PO BID #14 tab 03/10/23 [Rx] Follow up Appointment(s)/Referral(s): Navi Cruz MD [Medical Doctor] - 03/24/23 2:30 pm [facility] ,Cardiac [NON-STAFF] - 4 Weeks [facility] - 1-2 Days Rickey Morrison MD [Primary Care Provider] - 1-2 days (Please call for appointment) Fernie Colon MD [STAFF PHYSICIAN] - 03/17/23 10:45 am Kyle Camejo DO [Doctor of Osteopathic Medicine] - 03/28/23 2:15 pm Ambulatory/Diagnostic Orders: Complete Blood Count w/diff [LAB.AMB] Time Frame: 3 Days, Location: None Selected Comprehensive Metabolic Panel [LAB.AMB] Time Frame: 3 Days, Location: None Selected Activity/Diet/Wound Care/Special Instructions: DISCHARGE INSTRUCTIONS: 1. No driving for 4 weeks, or until physician gives their ok. 2. The patient should sleep in their own bed, no medical bed needed. 3. Stairs are not an issue. If the bedroom is upstairs, it is advised that the patient go up at night and down in the morning for the first week. Go slowly, using handrail and take 1 step at a time. 4. PLACIDO hose are to be worn for 30 days post surgery or until physician discontinues. 5. Heart hugger is to be worn 100% of the time until physician discontinues.(except when showering) 6. No lifting, pushing, or pulling more than 10 pounds for 12 weeks. The physician will advise of any restriction changes. 7. The patient is expected to continue the prescribed walking program. 8. Continue pain control per as needed orders. 9. Continue with incentive spirometry and splinting/heart hugger until otherwise directed by the physician. 10. Must shower daily using liquid antibacterial soap 11. Routine sternal incision care. No powders, lotions, ointments on incisions. No dressings are necessary on incisions unless they are draining. Dermabond tape is to remain on sternal incision until surgeon follow-up. 12. Please call surgeon/GROUNDSKEEPER PORTER for temp greater than 101 F or purulent drainage from incisions. 13. You should weigh yourself daily, record and bring log with you to follow up appointments. 14. All prescriptions given by surgeon for 30 days. Refills need to be filled through mechanical intern/primary care physician. 15. A Red armband has been placed on the patient. It should be worn for 30 days post discharge from surgery and will be removed by the cardiac surgeons. If an ER visit is necessary, please make sure the number on the Red armband is called before going to ER. 16. You have been referred to and are expected to begin Cardiac Rehab in approximately 4-6 weeks. 17. Quitting smoking is the most important step you can take to improve your health. For additional information and assistance to quit smoking, please call the [place] tobacco quit line (1-109-STPC-NOW/ ) or online: https ://www.[email or web address].gov/[email or web address]-au-[email or web address]/[email or web address]/tobacco/upx-gc-lcpu-to [facility] HOME HEALTH SERVICES TO PROVIDE: RN SKILLED HOME CARE SERVICES FOR POST-OP SURGICAL PATIENTS WITH THE FOLLOWING: Coronary Artery Bypass Surgery (CABG), Mitral Valve Replacement/Repair ( MVR), Aortic Valve Replacement/Repair (AVR) RN TO CONTINUE EDUCATION FROM ``ROAD TO A HEALTH HEART PATIENT EDUCATION MANUAL (GIVEN TO PATIENT IN THE HOSPITAL) MEDICATION RECONCILIATION WITH EDUCATION NEEDED ON FIRST HOME VISIT EMPHASIZE IMPORTANCE OF WEARING BREAST SUPPORT/HEART HUGGER ENCOURAGE USE OF INCENTIVE SPIROMETER 10 X EVERY HOUR WHILE AWAKE ENCOURAGE UTILIZATION OF LOWER EXTREMITY COMPRESSION STOCKINGS/PLACIDO HOSE and ELEVATE LEGS ABOVE LEVEL OF HEART WHILE AT REST. ENCOURAGE AMBULATION 3-5x/day INCREASING TOLERATES, WHILE AVOIDING EXTREMES IN TEMPERATURE FREQUENCY: RN TO OPEN THE PATIENT WITHIN 24 HOURS OF DISCHARGE FROM THE HOSPITAL WITH TELEHEALTH [place] [facility] TO VISIT 2-3 X A WEEK FOR 4 WEEKS ESTABLISHED BY PATIENT NEEDS. LABORATORY: CBC, CMP TO BE DRAWN ON THE THIRD DAY HOME, (RAN STAT) FAX RESULTS TO [phone]. TELEHEALTH PARAMETERS: WEIGHT: NOTIFY MD OF WEIGHT GAIN OF 2 LBS IN 24 HOURS OR 5 LBS IN ONE WEEK HR: NOTIFY MD OF HR <55 BPM OR HR>100 BPM BP: NOTIFY MD IF BP <90/55 OR BP>140/100 O2 SAT: NOTIFY MD IF PO2<93% ON ROOM AIR SEND TELEHEALTH REPORT TO BATTERY STARTER AND CARDIOVASCULAR SURGEON THE FIRST WEEK OF CARE AND THEN BI-WEEKLY. PLEASE ADDITIONALLY COMMUNICATE ANY ABNORMALS AND NEW FINDINGS TO THE SURGEONS OFFICE. Discharge Disposition: HOME WITH HOME HEALTH SERVICES
== END 2023-03-10 16:44 | disposition home health service (06) ==
LOC: EC 00:57 → 3SCARD 04:14 → INTOOBSV 04:14 → 3SCARD 12:31
PROVIDERS: ADMIT Thoracic Surgery (Cardiothoracic Vascular Surgery); ATTEND Thoracic Surgery (Cardiothoracic Vascular Surgery)
DX: I11.0 Hypertensive heart disease with heart failure (principal); I50.31 Acute diastolic (congestive) heart failure; K59.00 Constipation, unspecified; I25.10 Atherosclerotic heart disease of native coronary artery without angina pectoris; Q23.1 Congenital insufficiency of aortic valve; K21.9 Gastro-esophageal reflux disease without esophagitis; E78.5 Hyperlipidemia, unspecified; I25.2 Old myocardial infarction; F41.9 Anxiety disorder, unspecified; F90.9 Attention-deficit hyperactivity disorder, unspecified type; J44.9 Chronic obstructive pulmonary disease, unspecified; F17.200 Nicotine dependence, unspecified, uncomplicated; Z86.16 Personal history of COVID-19; Z95.2 Presence of prosthetic heart valve; Z95.5 Presence of coronary angioplasty implant and graft; Z79.51 Long term (current) use of inhaled steroids; Z79.82 Long term (current) use of aspirin; Z79.899 Other long term (current) drug therapy; Z88.5 Allergy status to narcotic agent; Z82.49 Family history of ischemic heart disease and other diseases of the circulatory system
CPT/HCPCS: 96376 ×2; 96365; 96375; 99285; 36415; 94640 ×3; 93005; 97162; 97165; 83880 ×2; 80053; 80048; 87449; 82375; 82803; 83605; 83735 ×2; 84484; 85025; 85027 ×2; 85610; 85730; 87040; 71046 ×2; G0378 ×2; J1940 ×2; J0295

== ENCOUNTER 2023-04-11 15:15 | Emergency (ER) | payer MEDICARE ==
--- NOTE | 2023-04-11 15:17 | ED ---
Chest Pain HPI - General Source: patient, RN notes reviewed Mode of arrival: ambulatory Limitations: no limitations <Seble Quiñonez - Last Filed: 04/11/23 15:18> <Radha Slade - Last Filed: 04/14/23 23:46> - General Chief Complaint: Chest Pain Stated Complaint: Chest Pain,Sob-post heart surgery Time Seen by Provider: 04/11/23 15:17 - History of Present Illness Initial Comments: This is a 62-year-old male who presents to the emergency department for chest pain shortness of breath. He had a CABG on 03/[address] Colon. He has recently started to develop increasing chest pain and shortness of breath. He also notes severe nausea, vomiting, and headaches. Patient believes that he broke a "band" or bone in his chest, causing the pain. (Seble Quiñonez) - Related Data Home Medications Medication Instructions Recorded Confirmed Ascorbic Acid [Vitamin C] 500 mg PO DAILY 02/25/23 03/09/23 ALPRAZolam [Xanax] 0.25 mg PO TID PRN 03/09/23 03/09/23 Sennosides-Docusate Sodium 2 tab PO HS 03/09/23 03/09/23 [Senokot-S] Previous Rx's Medication Instructions Recorded Acetaminophen Tab [Tylenol] 1,000 mg PO Q6HR PRN tab 03/05/23 Aspirin 325 mg PO DAILY #30 tab 03/05/23 Atorvastatin [Lipitor] 80 mg PO DAILY #30 tab 03/05/23 Budesonide-Formot 160-4.5 Mcg 2 puff INHALATION RT-BID #1 each 03/05/23 [Symbicort 160-4.5 Mcg Inhaler] Metoprolol Tartrate [Lopressor] 75 mg PO BID #90 tab 03/05/23 Pantoprazole [Protonix] 40 mg PO AC-BRKFST #30 tab 03/05/23 amLODIPine [Norvasc] 5 mg PO DAILY #30 tab 03/05/23 lisinopriL [Zestril] 10 mg PO DAILY #60 tab 03/05/23 Furosemide [Lasix] 40 mg PO DAILY #7 tablet 03/10/23 Potassium Chloride ER [K-Dur 20] 20 meq PO BID #14 tab 03/10/23 traMADol HCL 50 mg PO Q8H #21 tab 03/25/23 Allergies Allergy/AdvReac Type Severity Reaction Status Date / Time morphine Allergy Rash/Itchin Verified 04/11/23 15:52 g/Vomiting fentanyl AdvReac Nausea & Verified 04/11/23 15:52 Vomiting & Diarrhea Review of Systems ROS Other: All systems not noted in ROS Statement are negative. <Seble Quiñonez - Last Filed: 04/11/23 15:18> ROS Other: All systems not noted in ROS Statement are negative. <Radha Slade - Last Filed: 04/14/23 23:46> ROS Statement: Those systems with pertinent positive or pertinent negative responses have been documented in the HPI. Past Medical History Past Medical History: Coronary Artery Disease (CAD), Chest Pain / Angina, COPD, GERD/Reflux, Hyperlipidemia, Hypertension, Myocardial Infarction ([place]), Musculoskeletal Disorder Additional Past Medical History / Comment(s): HERNIATED DISCS, NOSEBLEEDS in the past, chronic SEVERE HEADACHES, C/O ITCHING ON HANDS AND FEET, frequent abd. pain years ago, but nothing currently, resolving congestion, cough, cold symptoms, mostly gone now, recent amd to [facility] for chest pain, recent issues w/frequent heartburn Last Myocardial Infarction Date:: 2022 History of Any Multi-Drug Resistant Organisms: None Reported Past Surgical History: Heart Catheterization With Stent, Hernia Repair, Orthopedic Surgery, Tonsillectomy Additional Past Surgical History / Comment(s): TONSILS A CHILD, BILATERAL KNEE ARTHROSCOPY, ORIF right FOOT, hernia repair as a child Past Anesthesia/Blood Transfusion Reactions: No Reported Reaction Date of Last Stent Placement:: 02-09-23 Past Psychological History: ADD/ADHD, Anxiety Smoking Status: Current every day smoker Past Alcohol Use History: None Reported Past Drug Use History: None Reported - Past Family History Mother Family Medical History: Cancer, Coronary Artery Disease (CAD), Diabetes Mellitus Additional Family Medical History / Comment(s): PANCREATIC CA, HX OF HEART PROBLEMS- TRIPLE BYPASS SURGERY, STENTS Father Family Medical History: Cancer, Coronary Artery Disease (CAD), Diabetes Mellitus Additional Family Medical History / Comment(s): LUNG CA, HX OF HEART PROBLEMS Brother(s) Family Medical History: Coronary Artery Disease (CAD) Additional Family Medical History / Comment(s): 2 brothers with CAD, both having had CABG <Seble Quiñonez - Last Filed: 04/11/23 15:18> General Exam <Seble Quiñonez - Last Filed: 04/11/23 15:18> - General Exam Comments Initial Comments: Visual Physical Exam Vital signs reviewed General: Well-appearing, nontoxic, no acute distress. Head: Normocephalic, atraumatic Eyes: PERRLA, EOMI ENT: Airway patent Chest: Nonlabored breathing Skin: No visual rash, normal skin tone Neuro: Alert and oriented 3 Musculoskeletal: No gross abnormalities (Seble Quiñonez) Course Vital Signs 04/11/23 15:50 Temperature 98.4 F Pulse Rate 78 Respiratory 20 Rate Blood Pressure 130/103 O2 Sat by Pulse 97 Oximetry Chest Pain MDM <Seble Quiñonez - Last Filed: 04/11/23 15:18> <Radha Slade - Last Filed: 04/14/23 23:46> - MDM I performed the QuickNote portion of this chart. Signed Seble Quiñonez PA-C. (Seble Quiñonez) EKG was given to me as part of the triage protocol. Demonstrates sinus rhythm with a rate of 78. ND interval 155. QRS 88. QTc of 400. Demonstrates inverted T waves in 2, 3, aVF. No acute ST segment elevation. This morphology was seen on patient's previous EKG (Radha Slade) Disposition <Seble Quiñonez - Last Filed: 04/11/23 15:18> <Radha Slade - Last Filed: 04/14/23 23:46> Clinical Impression: Chest pain Disposition: LEFT AGAINST MEDICAL ADVICE Condition: Undetermined Referrals: Rickey Morrison MD [Primary Care Provider] - 1-2 days
[2023-04-11 16:11] VITALS: BP 130/103; PULSE 78; RESP 20; TEMP 98.4
--- NOTE | 2023-04-11 16:26 | XR ---
EXAMINATION TYPE: XR chest 2V DATE OF EXAM: 04/11/2023 COMPARISON: 03/10/2023 INDICATION: Chest pain short of breath TECHNIQUE: Frontal and lateral views of the chest are obtained. FINDINGS: The heart size is normal. The pulmonary vasculature is normal. The lungs are clear. There is hyperinflation finding the diaphragms compatible with COPD. Postsurgic al changes from prior cardiac valve surgery are evident. IMPRESSION: 1. No acute pulmonary process. 2. COPD
[2023-04-11 16:33] LABS: Basophils % (A) 0 %; Eosinophils # (A) 0.4 k/uL (0-0.7); Eosinophils % (A) 7 %; HCT 34.5 % (39.0-53.0); HGB 11.2 gm/dL (13.0-17.5); Hypochromasia Moderate; Lymphocytes # (A) 1.7 k/uL (1.0-4.8); Lymphocytes % (A) 30 %; MCH 28.6 pg (25.0-35.0); MCHC 32.4 g/dL (31.0-37.0); MCV 88.2 fL (80.0-100.0); Mean Platelet Volume 7.4; Monocytes # (A) 0.3 k/uL (0-1.0); Monocytes % (A) 5 %; Neutrophils # (A) 3.1 k/uL (1.3-7.7); Neutrophils % (A) 54 %; Platelet Count 198 k/uL (150-450); RBC 3.91 m/uL (4.30-5.90); RDW 14.1 % (11.5-15.5); WBC 5.7 k/uL (3.8-10.6)
[2023-04-11 16:52] LABS: African American GFR (CKD) >90 (>60 ml/min/1.73 sqM); Anion Gap 6 mmol/L; Blood Urea Nitrogen 16 mg/dL (9-20); Calcium 9.4 mg/dL (8.4-10.2); Carbon Dioxide 27 mmol/L (22-30); Chloride 103 mmol/L (98-107); Glucose 99 mg/dL (74-99); Magnesium 2.1 mg/dL (1.6-2.3); Non-African American GFR(CKD) >90 (>60 ml/min/1.73 sqM); Potassium 4.2 mmol/L (3.5-5.1); Sodium 136 mmol/L (137-145); Total Bilirubin 0.3 mg/dL (0.2-1.3); Total Protein 7.3 g/dL (6.3-8.2)
[2023-04-11 16:53] LABS: ALT 12 U/L (4-49); AST 21 U/L (17-59); Alkaline Phosphatase 118 U/L (38-126)
[2023-04-11 17:00] LABS: INR 0.9 (<1.2); Partial Thromboplastin Time 25.4 sec (22.0-30.0); Prothrombin Time 10.4 sec (10.0-12.5)
== END 2023-04-11 17:48 | disposition left against medical advice (07) ==
LOC: EC 15:15
DX: R07.9 Chest pain, unspecified (principal); I10 Essential (primary) hypertension; I25.10 Atherosclerotic heart disease of native coronary artery without angina pectoris; I25.2 Old myocardial infarction; J44.9 Chronic obstructive pulmonary disease, unspecified; F41.9 Anxiety disorder, unspecified; F90.9 Attention-deficit hyperactivity disorder, unspecified type; F17.200 Nicotine dependence, unspecified, uncomplicated; Z79.82 Long term (current) use of aspirin; Z95.1 Presence of aortocoronary bypass graft; Z79.899 Other long term (current) drug therapy; Z88.5 Allergy status to narcotic agent; Z53.29 Procedure and treatment not carried out because of patient's decision for other reasons
CPT/HCPCS: 36415; 71046; 80053; 83735; 84484; 85025; 85610; 85730; 93005; 99285

== ENCOUNTER → 2023-05-05 | Outpatient (CLI) | payer MEDICARE ==
--- NOTE | 2023-05-05 12:56 | US ---
EXAMINATION TYPE: US gallbladder DATE OF EXAM: 05/05/2023 COMPARISON: NONE CLINICAL INDICATION: Male, 62 years old with history of R10.11 RUQ PAIN Q40.1 HIATAL HERNIA; TECHNIQUE: Multiple sonographic images of the right upper quadrant are obtained. FINDINGS: EXAM MEASUREMENTS: Liver Length: 16.9 cm Gallbladder Wall: 0.2 cm CBD: 0.24 cm Right Kidney: 11.0 x 4.9 x 5.1 cm Pancreas: wnl Liver: wnl Gallbladder: Tiny 3 mm echogenic foci noted that appears to be mobile when turned to decub position. No abnormal distention, wall thickening, or surrounding fluid. Evidence for sonographic Pro's sign: No CBD: wnl Right Kidney: wnl IMPRESSION: 1. A few tiny gravel/gallstones measuring up to 3 mm. 2. No biliary ductal dilatation.
== END | disposition home or self-care (01) ==
LOC: RADUSWWP 07:05
PROVIDERS: ATTEND Family Medicine
DX: K80.20 Calculus of gallbladder without cholecystitis without obstruction (principal); Q40.1 Congenital hiatus hernia
CPT/HCPCS: 76705

== ENCOUNTER 2023-06-02 09:12 | Day surgery (SDC) | payer MEDICARE ==
[2023-06-01 12:14] VITALS: BMI 21.4
[2023-06-02 10:21] VITALS: TEMP 97.7
[2023-06-02] MEDS: LACTATED RINGERS 1,000 ML IV SCH (10:32)
[2023-06-02] MEDS: LIDOCAINE 1% (10MG/ML) FOR IV START INTRADERMA ONE (10:32)
[2023-06-02] MEDS ORDERED: PROPOFOL 10 MG/ML 20 ML VIAL IV ONE (10:42)
[2023-06-02] MEDS ORDERED: LIDOCAINE 1% INJ 10MG/ML (20 ML MDV) ONE (10:42)
--- NOTE | 2023-06-02 10:46 | P.GSHP ---
History of Present Illness H&P Date: 06/02/23 Chief Complaint: GERD This is a 62-year-old male presents today for EGD. Has had issues with GERD. Past Medical History Past Medical History: Coronary Artery Disease (CAD), Chest Pain / Angina, COPD, GERD/Reflux, Hyperlipidemia, Hypertension, Myocardial Infarction ([place]), Musculoskeletal Disorder Additional Past Medical History / Comment(s): HERNIATED DISCS, NOSEBLEEDS in the past, frequent abd. PAIN recent aDM to [facility] for chest pain, recent issues w/frequent heartburn Last Myocardial Infarction Date:: 2022, MAY 2023 History of Any Multi-Drug Resistant Organisms: None Reported Past Surgical History: Coronary Bypass/CABG, Heart Catheterization With Stent, Hernia Repair, Orthopedic Surgery, Tonsillectomy Additional Past Surgical History / Comment(s): TONSILS A CHILD, BILATERAL KNEE ARTHROSCOPY, ORIF right FOOT, hernia repair as a child,. QUAD BYPASS 2022 Past Anesthesia/Blood Transfusion Reactions: No Reported Reaction Date of Last Stent Placement:: 02-09-23- STATES NO STENTS DONE AT THIS TIME. STENTS 05/26/23-MIRA MARCUS JR Smoking Status: Current every day smoker - Past Family History Mother Family Medical History: Cancer, Coronary Artery Disease (CAD), Diabetes Mellitus Additional Family Medical History / Comment(s): PANCREATIC CA, HX OF HEART PROBLEMS- TRIPLE BYPASS SURGERY, STENTS Father Family Medical History: Cancer, Coronary Artery Disease (CAD), Diabetes Mellitus Additional Family Medical History / Comment(s): LUNG CA, HX OF HEART PROBLEMS Brother(s) Family Medical History: Coronary Artery Disease (CAD) Additional Family Medical History / Comment(s): 2 brothers with CAD, both having had CABG Medications and Allergies Home Medications Medication Instructions Recorded Confirmed Type Aspirin 325 mg PO DAILY #30 tab 03/05/23 06/02/23 Rx ALPRAZolam [Xanax] 0.25 mg PO HS 03/09/23 06/02/23 History traMADol HCL 50 mg PO Q8H #21 tab 03/25/23 06/02/23 Rx Cholecalciferol (Vitamin D3) 125 mcg PO DAILY 06/01/23 06/02/23 History [Vitamin D3 (125 MCG = 5,000 IU)] Clopidogrel [Plavix] 75 mg PO DAILY 06/01/23 06/02/23 History Cyanocobalamin (Vitamin B-12) 1,000 mcg PO DAILY 06/01/23 06/02/23 History [Vitamin B-12] Losartan [Cozaar] 50 mg PO DAILY 06/01/23 06/02/23 History Metoprolol Tartrate [Lopressor] 12.5 mg PO BID 06/01/23 06/02/23 History Multivit-Minerals/FA/Lycopene 1 each PO DAILY 06/01/23 06/02/23 History [One-A-Day Men's 50 Plus Tablet] Omeprazole 40 mg PO BID 06/01/23 06/02/23 History Rosuvastatin [Crestor] 20 mg PO HS 06/01/23 06/02/23 History Sildenafil Citrate [Sildenafil] 20 mg PO HS 06/01/23 06/02/23 History Sucralfate [Carafate] 1 gm PO BID 06/01/23 06/02/23 History Allergies Allergy/AdvReac Type Severity Reaction Status Date / Time morphine Allergy Rash/Itchin Verified 06/02/23 10:06 g/Vomiting fentanyl AdvReac Nausea & Verified 06/02/23 10:06 Vomiting & Diarrhea Surgical - Exam Vital Signs Temp Pulse Resp BP Pulse Ox 97.7 F 71 18 142/91 96 06/02/23 10:17 06/02/23 10:17 06/02/23 10:17 06/02/23 10:17 06/02/23 10:17 - General well developed, well nourished, no distress - Eyes PERRL - ENT normal pinna - Neck no masses - Respiratory normal expansion - Cardiovascular Rhythm: regular - Abdomen Abdomen: soft, non tender Assessment and Plan Assessment: GERD. We'll perform EGD.
--- NOTE | 2023-06-02 10:57 | P.OP ---
Date of Procedure: 06/02/23 Preoperative Diagnosis: GERD Postoperative Diagnosis: Antral gastritis Small hiatal hernia Minimal esophagitis Procedure(s) Performed: EGD Anesthesia: MAC Surgeon: Trevor Landa Pathology: other (Antrum, esophagus) Condition: stable Disposition: PACU Description of Procedure: The patient's placed on the endoscopy table in the lateral position. He received IV sedation. Gastroscope placed oropharynx passed in the esophagus and stomach. Scope was placed through the pylorus. First and second portion of the duodenum appeared normal. Scope was then brought back the antrum this appeared mildly inflamed. A biopsies performed. Scope was then retroflexed and the remainder the stomach appeared normal. There was a small hiatal hernia. The GE junction was at 40 cm per the distal esophagus appeared minimally Inflamed and a biopsies performed.. The proximal esophagus appeared normal. The withdrawn for patient.
[2023-06-02 11:32] VITALS: BP 106/70; PULSE 70; RESP 16
== END 2023-06-02 11:30 | disposition home or self-care (01) ==
LOC: ORWHC2ENDO 09:12
PROVIDERS: ATTEND Surgery
DX: K29.50 Unspecified chronic gastritis without bleeding (principal); K21.00 Gastro-esophageal reflux disease with esophagitis, without bleeding; K44.9 Diaphragmatic hernia without obstruction or gangrene; E78.5 Hyperlipidemia, unspecified; I10 Essential (primary) hypertension; I25.10 Atherosclerotic heart disease of native coronary artery without angina pectoris; I25.2 Old myocardial infarction; J44.9 Chronic obstructive pulmonary disease, unspecified; F17.200 Nicotine dependence, unspecified, uncomplicated; Z79.02 Long term (current) use of antithrombotics/antiplatelets; Z88.5 Allergy status to narcotic agent; Z95.1 Presence of aortocoronary bypass graft; Z79.899 Other long term (current) drug therapy; Z88.8 Allergy status to other drugs, medicaments and biological substances
CPT/HCPCS: 88305; 43239; J2001; J2704

== ENCOUNTER → 2024-01-16 | Outpatient (CLI) | payer MEDICARE ==
--- NOTE | 2024-01-16 14:39 | US ---
EXAMINATION TYPE: US arterial LE single level DATE OF EXAM: 01/16/2024 12:21 PM COMPARISONS: None. CLINICAL INDICATION: Male, 63 years old with history of M79.605 PAIN IN LEFT LEG; left leg pain x 6 m onths, h/o stenting within bilateral groin this past year, left foot colder then right TECHNIQUE: Systolic pressures were taken of the upper and lower extremity arteries with ankle-brachia l indices and toe brachial indices calculated bilaterally. History of: Smoker: current Hypertension: y Diabetic: n Hyperlipidemia: n TIA/CVA: n Previous Vascular Surgery: yes- open heart, groin stents CAD: n NV: y Vascular Ulcers: n Claudication: n Gangrene: n FINDINGS: Doppler Waveforms: Right: Multiphasic Left: Multiphasic Brachial Artery systolic pressure: Right: 174 Left: 158 Posterior Tibial artery systolic pressure: Right: 196 Left: 191 Dorsalis Pedis artery systolic pressure: Right: 199 Left: 200 Toe artery systolic pressure: Right: 100 Left: 119 Ankle-Brachial Indices: Right: 1.1 Left: 1.1 (Vessel hardening > 1.4; Normal 0.9 - 1.4, Moderate 0.7 - 0.9, Severe 0.5-0.7) Toe Brachial Indices: Right: 0.6 Left: 0.7 (Normal > 0.6; Mild 0.35 - 0.59, Moderate 0.12 - 0.34, Severe <0.12) IMPRESSION: Normal ankle-brachial brachial indices bilaterally. [facility], , 01/16/2024 2:37 PM
== END | disposition home or self-care (01) ==
LOC: RADUSWWP 11:25
PROVIDERS: ATTEND Family Medicine
DX: M79.605 Pain in left leg (principal); I70.212 Atherosclerosis of native arteries of extremities with intermittent claudication, left leg
CPT/HCPCS: 93922